=== PATIENT | female | born 1940 | race Caucasian/White ===

== ENCOUNTER 2017-04-28 07:40 | Outpatient (CLI) | payer MEDICARE ==
[~2017-04-28] VITALS: Ht 162.6 cm; Wt 90.9 kg
--- NOTE | ~2017-04-28 | HEMODYNAMI ---
PATIENT:YANET MALIK MEDICAL RECORD: [id number] : 42 LOCATION:[facility] ADMISSION DATE: 04/28/17 Generatedon:04/28/201711:15 Patient name: YANET MALIK Patient #: [id number] SSN: [id number] B: 1940 Date of study: 04/28/2017 Page: Of Hemodynamic Procedure Report Patient Data Patient Demographics Procedure consent was obtained First Name: YANET Gender: Female Last Name: HELENA : 1940 Patient #: [id number] Age: 76 year(s) Race: Additional ID: [id number] Contact details [address]: [address] [place] [address] State: [place] City: [place] Zip code: [address] Past Medical History Allergies: No known allergies Admission Admission Data Admission Date: 04/28/2017 Admission Time: 7:40 Admit Source: Other Height (in.): 64 BSA: 1.96 (m2) Height (cm.): 162.56 BMI: 34.33 (kg/m2) Weight (lbs.): 200 Weight (kg.): 90.72 Lab Results Lab Result Date: 04/28/2017 Lab Result Time: 0:00 Biochemistry Name Units Result Min Max Creatinine mg/dl 1 --(--*-)-- 0.6 1.3 CBC Name Units Result Min Max Hemoglobin g/dl 12.6 -*(----)-- 13.5 17.5 Procedure Procedure Types Cath Procedure Diagnostic Procedure C [facility] w/Coronaries PCI Procedure Coronary Stent Initial Miscellaneous Procedures Moderate Sedation up to 30 minutes Procedure Description Procedure Date Procedure Date: 04/28/2017 Procedure Start Time: 10:49 Procedure End Time: 11:14 Procedure Staff Name Function Jovany Thibodeaux MD Performing Physician Mikael Gonzalez RT Scrub Yenifer Robison RN Nurse Cristela Barrett RT Monitor Dilan Patiño RN Veterinary Virus Serum Inspector Procedure Data Cath Procedure Fluoroscopy Diagnostic fluoroscopy Total fluoroscopy Time: 4.9 time: 4.9 min min Diagnostic fluoroscopy Total fluoroscopy dose: 669 dose: 669 mGy mGy Contrast Material Contrast Material Type Amount (ml) Isovue 300 85 Entry Location Entry Primary Successful Side Size Upsize Upsize Entry Closure Morrell ccessful Closure Location (Fr) 1 (Fr) 2 (Fr) Remarks Device Remarks Radial Right 6 Fr Mechanical artery Short Compression Estimated blood loss: 10 ml Diagnostic catheters Device Type Used For End Catheter Placement Diagnostic Terumo 5Fr LV Angiography [place] 110cm catheter Diagnostic Terumo 5Fr Left Coronary [place] 110cm catheter Angiography Diagnostic Terumo 5Fr Right Coronary [place] 110cm catheter Angiography Procedure Complications No complications Procedure Medications Medication Administration Route Dosage Oxygen NC 2 l/min Lidocaine 2% added to field 20 Heparin Flush Bag added to field 2 bags (1000units/500ml NS) 0.9% NaCl I.V. 100 ml/hr Versed I.V. 1 mg Fentanyl I.V. 50 mcg Radial Cocktail I.A. 1 syringe (Verapomil 2mg/Nitro 400mcg/Heparin 1500units) Versed I.V. 0.5 mg Fentanyl I.V. 25 mcg Versed I.V. 0.5 mg Fentanyl I.V. 25 mcg Heparin Bolus I.V. 9000 units Plavix P.O. 600 mg Hemodynamics Rest BSA: 1.96 (m2) HGB: 12.6 (g/dl) O2 Consumption: Estimated: 179.01 (ml/min) O2 Co nsumption indexed: Estimated:91.33 (ml/min/m) Heart Rate: 71 (bpm) Pressure Samples Time Site Value (mmHg) Purpose Heart Use Rate(bpm) 10:52 LV 133/12,21 EDP 69 10:53 AO 111/53(74) Pullback 75 10:53 LV 111/11,15 Pullback 75 Gradients Valve Time Site 1 Site 2 Mean SEP/DFP Peak To Heart Use (mmHg) (sec/min) Peak Rate (mmHg) (bpm) Aortic 10:53 LV AO 13 15 0 75 111/11,15 111/53(74) Calculations Valve P-P Mean Valve Index Valve Source Name Gradient Area Flow (cm2) Aortic 0 13 0 13 Snapshots Pre Cath Intra NCS Post Cath Vital Signs Time Heart Resp SPO2 etCO2 [id number] NIBP (mmHg) Rhythm Pain Sedation Rate (ipm) (%) (mmHg) (mmHg) Status Level (bpm) 10:30:49 72 15 99 0 0 152/56(111) NSR 0 (11) 10(A) , No pain 10:35:19 70 16 100 0 0 158/50(108) NSR 0 (11) 10(A) , No pain 10:39:52 69 18 100 0 0 149/45(116) NSR 0 (11) 10(A) , No pain 10:44:20 69 16 98 0 0 130/54(103) NSR 0 (11) 10(A) , No pain 10:48:44 69 17 97 0 0 130/49(89) NSR 0 (11) 10(A) , No pain 10:54:22 66 17 95 0 0 105/36(56) NSR 0 (11) 9(A) , No pain 10:58:40 69 17 95 0 0 118/41(68) NSR 0 (11) 9(A) , No pain 11:03:04 71 18 96 0 0 114/41(75) NSR 0 (11) 9(A) , No pain 11:07:18 71 16 96 0 0 109/44(78) NSR 0 (11) 9(A) , No pain 11:11:36 71 16 96 0 0 124/46(83) NSR 0 (11) 10(A) , No pain Medications Time Medication Route Dose Verified Delivered Reason Note s Effectiveness by by 10:32:04 Oxygen NC 2 l/min Jovany Buffie used for Dustin Robison RN procedure 10:32:15 Lidocaine 2% added 20ml Jovany Jovany for local to vial Dustin Thibodeaux MD anesthetic field 10:32:22 Heparin Flush added 2 bags Jovany Jovany used for Bag to Dustin Thibodeaux MD procedure (1000units/500ml field NS) 10:32:32 0.9% NaCl I.V. 100 Jovany Buffie Per physician ml/hr Dustin Robison RN 10:48:20 Versed I.V. 1 mg Jovany Buffie for sedation Dustin Robison RN 10:48:26 Fentanyl I.V. 50 mcg Jovany Buffie for sedation Dustin Robison RN 10:51:44 Radial Cocktail I.A. 1 Jovany Jovany for (Verapomil syringe Dustin Thibodeaux MD vasodilation 2mg/Nitro 400mcg/Heparin 1500units) 10:51:54 Versed I.V. 0.5 mg Jovany Buffie for sedation Dustin Robison RN 10:51:59 Fentanyl I.V. 25 mcg Jovany Buffie for sedation Dustin Robison RN 10:59:29 Versed I.V. 0.5 mg Jovany Buffie for sedation Dustin Robison RN 10:59:33 Fentanyl I.V. 25 mcg Jovany Buffie for sedation Dustin Robison RN 11:01:38 Heparin Bolus I.V. 9000 Jovany Buffie for veri fied units Dustin Robison RN anticoagulation with dr thibodeaux 11:12:44 Plavix P.O. 600 mg Jovany Buffie for Dustin Robison RN antiplatelet therapy Procedure Log Time Note 9::23 Time tracking: Regular hours 9::27 Plan of Care:Hemodynamics will remain stable., Cardiac rhythm will remain stable., Comfort level will be maintained., Respiratory function will remain adequate., Patient/ family verbilizes understanding of procedure., Procedure tolerated without complication., Recovers from procedure without complications.. 9:24:01 Patient Height : 64 cm 9:24:04 Patient Weight : 200 kg 9:25:42 Admit Source: Other 10:08:54 Dilan Patiño RN sent for patient. Start room use. 10:11:21 Lab Result : Creatinine 1 mg/dl 10:11:21 Lab Result : Hemoglobin 12.6 g/dl 10:20:51 Patient received from Pre/Post Procedure Room to [facility] 1 Alert and oriented. Tansferred to table in Supine position. 10:20:52 Warm blankets applied, and marques hugger turned on for patient comfort. 10:20:52 Correct patient and procedure confirmed by team. 10:20:54 Signed procedure consent form obtained from patient. 10:20:55 ECG and BP/O2 sat monitors applied to patient. 10:29:28 Vital chart was started 10:32:04 Oxygen 2 l/min NC was administered by Yenifer Robison RN; used for procedure; 10:32:15 Lidocaine 2% 20ml vial added to field was administered by Jovany Thibodeaux MD; for local anesthetic; 10:32:22 Heparin Flush Bag (1000units/500ml NS) 2 bags added to field was administered by Jovany Thibodeaux MD; used for procedure; 10:32:32 0.9% NaCl 100 ml/hr I.V. was administered by Yenifer Robison RN; Per physician; 10:32:36 Rhythm: sinus rhythm 10:32:38 Full Disclosure recording started 10:32:42 Baseline sample Acquired. 10:32:55 H&P Date Dictated: 04/16/2017 Within 30 days and on chart., H&P Addendum completed by physician on day of procedure. (MUST COMPLETE FOR ALL OUTPATIENTS). 10:32:56 Pre-procedure instructions explained to patient. 10:32:57 Pre-op teaching completed and patient verbalized understanding. 10:32:58 Family in patients room. 10:33:06 Patient NPO since Midnight. 10:33:14 Patient allergic to No known allergies 10:33:18 Is the patient allergic to Iodine/contrast media? No. 10:33:21 Is patient on blood thinner?No 10:33:23 Patient diabetic? Yes. 10:33:26 Previous problem with sedation/anesthesia? No ? 10:33:28 Snore? Yes 10:33:29 Sleep apnea? No 10:33:30 Deviated septum? No 10:33:32 Opens mouth fully? Yes 10:33:33 Sticks out tongue? Yes 10:33:48 Airway obstruction? Yes COPD Asthma 10:34:07 Dentures? Yes IN 10:34:29 Pre procedure: right dorsailis pedis pulse 1+ Palpable, but thready & weak; easily obliterated 10:34:31 Modified Alek's test Ulnar < 7 seconds 10:34:44 Patient pain scale 0/10 ?. 10:35:20 IV patent on arrival in left hand with 0.9% NaCl at KVO. 10:35:24 Lab results completed and on chart. 10:35:30 Right Radial & Right Groin area was prepped with chlora-prep and draped in sterile fashion 10:35:31 Alarms reviewed by R. N. 10:35:31 Sharps counted by scrub and verified by R.N. 10:35:38 Use device set Radial Dx 10:35:39 Acist Syringe opened to sterile field. 10:35:39 Medline Cath Pack opened to sterile field. 10:35:40 Bag Decanter opened to sterile field. 10:35:41 St Fred 260cm J .035 wire opened to sterile field. 10:35:42 Acist Hand Control opened to sterile field. 10:35:42 Acist Manifold opened to sterile field. 10:35:43 Tegaderm 4 x 4 opened to sterile field. 10:41:01 Merit Prelude 6Fr Radial Sheath (NO COST SUPPLY) opened to sterile field. 10:43:16 Physician paged 10:47:43 Final Timeout: patient, procedure, and site verified with staff and physician. All members of the team are in agreement. 10:47:45 Right Radial site verified by team. 10:47:48 Physical assessment completed. ASA score P 2 - A patient with mild systemic disease as per Jovany Thibodeaux MD. 10:47:52 Sedation plan: IV Moderate Sedation Versed, Fentanyl 10:48:10 Procedure started. 10:48:20 Versed 1 mg I.V. was administered by Yenifer Robison RN; for sedation; 10:48:26 Fentanyl 50 mcg I.V. was administered by Yenifer Robison RN; for sedation; 10:49:43 Local anesthetic to right radial artery with Lidocaine 2% by Jovany Thibodeaux MD.INITIAL ACCESS ONLY 10:49:59 A 6 Fr Short sheath was inserted into the Right Radial artery 10:51:20 A Diagnostic Terumo 5Fr [place] 110cm catheter was advanced over the wire and used for LV Angiography. 10:51:44 Radial Cocktail (Verapomil 2mg/Nitro 400mcg/Heparin 1500units) 1 syringe I.A. was administered by Jovany Thibodeaux MD; for vasodilation; 10:51:54 Versed 0.5 mg I.V. was administered by Yenifer Robison RN; for sedation; 10:51:59 Fentanyl 25 mcg I.V. was administered by Yenifer Robison RN; for sedation; 10:52:40 LV gram done using VELASQUEZ 10:52:41 LV hemodynamics recorded. 10::44 Injector settings: Ml/sec: 5, Volume: 15, 10:52:58 EF : 55 % 10:53:55 A Diagnostic Terumo 5Fr [place] 110cm catheter was advanced over the wire and used for Left Coronary Angiography. 10:56:01 A Diagnostic Terumo 5Fr [place] 110cm catheter was advanced over the wire and used for Right Coronary Angiography. 10:57:01 Catheter removed. 10:58:03 Medtronic Launcher 6Fr AR 1.0 guide catheter opened to sterile field. 10:58:05 Flores BMW [place] 2 J-tip 300cm 0.014 guide wir opened to sterile field. 10:58:05 PT [place] Inti Selaras BasixCompak Inflation Kit opened to sterile field. 10:58:17 High Pressure Extension Tubing (Dustin) opened to sterile field. 10:59:24 6 Fr AR 1.0 guide catheter was inserted over the wire 10:59:29 Versed 0.5 mg I.V. was administered by Yenifer Robison RN; for sedation; 10:59:33 Fentanyl 25 mcg I.V. was administered by Yenifer Robison RN; for sedation; 11:01:38 Heparin Bolus 9000 units I.V. was administered by Yenifer Robison RN; for anticoagulation; verified with dr thibodeaux 11:02:01 [facility] wire advanced. 11:06:20 Inflation Number: 1 A [place] OTW 3.0 x 18 stent was prepped and advanced across the Mid RCA. The stent was deployed at 12 GELACIO for 0:19 (min:sec). 11:07:31 Stent catheter was removed intact over wire. 11:07:32 Wire removed. 11:07:32 Guide catheter removed. 11:07:43 Terumo TR Band Standard opened to sterile field. 11:07:54 Sheath removed intact; hemostasis achieved with Mechanical Compression to the Right Radial artery. 11:07:56 Procedure ended.(Physican Out) 11:08:13 Fluoroscopy time 04.90 minutes. 11:08:17 Flurop Dose total: 669 11:08:17 Fluoroscopy dose: 669 mGy 11:08:21 Contrast amount:Isovue 300 85ml. 11:08:25 Sharps counted by scrub and verified by R.N. 11:08:34 TR band inflated with 12cc of air. 11:08:41 Insertion/operative site no bleeding no hematoma. 11:08:48 Post right radial artery:stable, clean and dry 11:08:50 Post Procedure Pulses reassessed and unchanged 11:08:54 Post-procedure physical assessment completed. ASA score P 2 - A patient with mild systemic disease as per Jovany Thibodeaux MD. 11:08:56 Post procedure rhythm: unchanged. 11:09:00 Estimated blood loss: 10 ml 11:09:01 Post procedure instruction explained to patient.Patient verbalizes understanding. 11:09:02 Patient needs reinforcement of post procedure teaching. 11:09:15 Procedure type changed to Cath procedure, Diagnostic procedure, LHC, LHC w/Coronaries, PCI procedure, Coronary Stent Initial, Miscellaneous Procedures, Moderate Sedation up to 30 minutes 11:09:21 Procedure Complication : No complications 11:09:23 See physician's report for complete and final results. 11:12:44 Plavix 600 mg P.O. was administered by Yenifer Robison RN; for antiplatelet therapy; 11:14:36 Procedure and supply charges have been captured, reviewed, submitted and are correct. 11:14:37 Vital chart was stopped 11:14:39 Report given to Pre/Post Procedure Room. 11:14:43 Patient transfered to Pre/Post Procedure Room with Stretcher. 11:14:50 Procedure ended. 11:14:50 Full Disclosure recording stopped 11:14:53 End room use (Document Last) Intervention Summary Intervention Notes Time ActionType Lesion and Equipment Action# Pressure Duration Attributes Used 11:06:20 Place stent Mid RCA [place] OTW 1 12 00:20 3.0 x 18 stent Device Usage Item Name Manufacture Quantity Catalog Hospital Part Current Minim al Lot# / Number Charge Number Stock Stock Serial# Code Acist Acist 1 23118 801908 286902 730857 20 Syringe Medical Systems Inc Medline Cardinal 1 [id number] 713574 77072 306799 5 Cath Pack Health Bag Microtek 1 2002S 743941 25711 227130 [address] Fred 1 [id number] 210579 906705 176872 30 260cm J .035 wire Acist Hand Acist 1 52852 859441 028930 693465 5 Control Medical Systems Inc Acist Acist 1 49242 644382 590785 637368 5 Manifold Medical Systems Inc Tegaderm 4 3M 1 1626W 047031 459945 741305 5 x 4 Merit Merit 1 [id number] 742761 500177 5 Prelude 6Fr Medical Radial Sheath (NO COST SUPPLY) Diagnostic Terumo 1 40-6937 528340 777475 799453 5 Terumo 5Fr [place] 110cm catheter Medtronic Medtronic 1 [id number] 586999 80477 869709 1 Launcher 6Fr AR 1.0 guide catheter Flores BMW Flores 1 [id number] 030569 160327 309903 5 [place] 2 Vascular J-tip 300cm 0.014 guide wir Merit Merit 1 [id number] 855099 001150 524569 15 BasixCompak Medical Inflation Kit High Merit 1 [id number] 238609 69700 264591 10 Pressure Medical Extension Tubing (Thibodeaux) [place] OTW Medtronic 1 [id number] 373694 5230666 599755 5 [id number] 3.0 x 18 stent Terumo TR Terumo 1 [id number] 089618 349085 422057 40 Band Standard Signature Audit [place] Stage Time Signature Unsigned Intra-Procedure 04/28/2017 Cristela 11:15:03 AM Counts RT(R) Signatures Monitor : Cristela Signature : Counts RT Date : Time : [place] [id number] [facility] [address]
[~2017-04-28 07:40] MED LIST: ADVAIR 250/501 DISK INH; ALDACTONE25 MG PO; ALEVE220 MG PO; ASPIRIN325 MG PO; ATROVENT 0.02%2.5 ML; CALTRATE-600600 MG; CORTEF10 MG PO; FISH OIL 1,0001 CA1; FLOVENT DI50 MCG/DIS; FLUTICASONE PRO16 GM NASAL; HYDROCODON-ACE1 EAC7 PO; KLONOPIN1 MG PO; LASIX20 MG PO; LIPITOR20 MG PO; MUCINEX600 MG PO; MULTIPLE VITAMI1 TA1 PO; NEXIUM40 MG PO; NORVASC5 MG PO; OMEPRAZOLE40 MG PO; PLAVIX75 MG PO; PRILOSEC10 M1 PO; REGLAN10 MG PO; TOPROL XL50 MG PO; ZOFRAN8 MG PO; ZOLOFT100 MG PO
[2017-04-28] MEDS ORDERED: MIRAPEX0.25 MG PO (08:03)
[2017-04-28] MEDS ORDERED: FUROSEMIDE20 MG PO (08:05)
[2017-04-28 08:14] VITALS: BP 185/64; Ht 162.6 cm; Wt 90.9 kg
[2017-04-28 08:32] LABS: ANION GAP 11.8 mmol/L (8-16); BASOPHILS 0.4 % (0-2); CARBON DIOXIDE 32.5 mmol/L (21.0-32.0); EOSINOPHILS 0.9 % (0-7); HEMOGLOBIN 12.6 g/dL (12-16); IMMATURE GRANULOCYTES 0.6 % (0-5); LYMPHOCYTES 8.1 % (15-50); MCHC 34.1 g/dL (31.0-37.0); MCV 88.1 fL (80.0-100.0); MEAN PLATELET VOLUME 10.2 fL (7.4-10.4); MONOCYTES 6.9 % (2-11); NEUTROPHILS 83.1 % (40-80); PLATELET COUNT 278 10x3/uL (130-400); POTASSIUM - SERUM 4.3 mmol/L (3.5-5.1); RDW 17.2 % (11.5-14.5); WBC 13.9 10x3/uL (4.8-10.8)
--- NOTE | 2017-04-28 11:20 | NUR ---
1120 RECIEVED TO ROOM VIA STRETCHER FROM [employer]ODUCT SAF[employer]Y EXPERT WITH REPORTS OF ONE STENT TO THE RCA. TR BAND TO R/WRIST CDI NO BLEEDING NO HEMATOMA NOTED. VSS WITH CHEST PAIN DENIED.
[2017-04-28] MEDS ORDERED: PLAVIX75 MG PO (11:31)
--- NOTE | 2017-04-28 11:48 | NUR ---
VSS WITH CHEST PAIN DENIED TR BAND TO R/WRIST CDI NO BLEEDING NO HEMATOMA NOTED INSTRUCTED PATIENT TO KEEP RUE STRAIGHT. FAMILY AT SIDE
--- NOTE | 2017-04-28 12:00 | NUR ---
RESTING QUIETLY WITH EYES CLOSED. VSS NO DISTRESS NOTED TR BAND R/WRIST CDI NO BLEEDING NO HEMATOMA NOTED SANDWICH AND SODA TO BEDSIDE. FAMILY PRESENT IN ROOM
--- NOTE | 2017-04-28 12:31 | NUR ---
1230 TR BAND TO RIGHT HAND CDI, AREA FREE FROM BLEEDING/HEMATOMA. CAP REFILL TO FINGERS IS BRISK, FINGERS WARM TO TOUCH. VSS. ON O2 AT 2 LPM VIA NC, RR EVEN AND UNLABORED. FAMILY AT BEDSIDE. CALL LIGHT IN REACH.
--- NOTE | 2017-04-28 13:00 | NUR ---
1300 RESTING QUIETLY WITH NO DISTRESS.VSS TR BAND R/WRIST CDI NO BLEEDING NO HEMATOMA NOTED. FAMILY AT SIDE
--- NOTE | 2017-04-28 13:30 | NUR ---
1330 NO CHANGE IN ASSESSMENT TR BAND REMAINS CDI WITH VSS
--- NOTE | 2017-04-28 14:01 | NUR ---
TALKING TO FAMILY AT SIDE WITH CHEST PAIN DENIED VSS TR BAND CDI NO BLEEDING NO HEMATOMA NOTED
--- NOTE | 2017-04-28 14:35 | NUR ---
2 CC AIR REMOVED FROM TR BAND WITH NO BLEEDING NO HEMATOMA NOTED VSS
--- NOTE | 2017-04-28 15:03 | NUR ---
VOIDS 300 CC CLEAR YELLOW URINE TO COLLECTION. TR BAND REMAINS CDI NO BLEEDING NO HEMATOMA NOTED
--- NOTE | 2017-04-28 15:19 | NUR ---
2 CC AIR REMOVED FROM TR BAND WITH NO BLEEDING NO HEMATOMA NOTED
--- NOTE | 2017-04-28 15:30 | NUR ---
1530 2 CC AIR REMOVED FROM TR BAND WITH NO BLEEDING NO HEMATOMA NOTED. PIV REMOVED WITH DRESSING APPLIED PATIENT UP TO GET DRESSED FOR DISCHARGE HOME
--- NOTE | 2017-04-28 15:53 | NUR ---
TR BAND REMOVED WITH DRESSING APPLIED NO BLEEDING NO HEMATOMA NOTED. VERBAL AND WRITTEN DISCHARGE GONE OVER WITH PATIENT AND FAMILY. LEFT VIA WC TO PARKING FOR TRANSPORT HOME WITH CHEST PAIN DENIED NO DISTRESS.
== END 2017-04-28 15:55 | disposition home or self-care (01) ==
LOC: D.CATH 07:40
PROVIDERS: Internal Medicine Cardiovascular Disease
DX: I25.119 Atherosclerotic heart disease of native coronary artery with unspecified angina pectoris (principal); Z01.812 Encounter for preprocedural laboratory examination

== ENCOUNTER 2017-05-14 07:12 | Outpatient (CLI) | payer MEDICARE ==
[~2017-05-14] VITALS: Ht 162.6 cm; Wt 90.9 kg
--- NOTE | ~2017-05-14 | HEMODYNAMI ---
PATIENT:YANET MALIK MEDICAL RECORD: [id number] : 42 LOCATION:[facility] ADMISSION DATE: 05/14/17 Generatedon:05/14/201710:05 Patient name: YANET MALIK Patient #: [id number] SSN: DO B: 1940 Date of study: 05/14/2017 Page: Of Hemodynamic Procedure Report Patient Data Patient Demographics Procedure consent was obtained First Name: YANET Gender: Female Last Name: HELENA : 1940 Patient #: [id number] Age: 76 year(s) Race: Additional ID: [id number] Contact details Address: [address] [place] [address] State: [place] City: [place] Zip code: [address] Past Medical History Allergies: No known allergies Admission Admission Data Admission Date: 05/14/2017 Admission Time: 7:12 Lab Results Lab Result Date: 05/14/2017 Lab Result Time: 7:39 Biochemistry Name Units Result Min Max BUN mg/dl 15 --(--*-)-- 7 18 Creatinine mg/dl 1.2 --(---*)-- 0.6 1.3 CBC Name Units Result Min Max Hematocrit % 36.4 *-(----)-- 42 54 Hemoglobin g/dl 12.4 *-(----)-- 13.5 17.5 Procedure Procedure Types Cath Procedure PCI Procedure Coronary Stent Initial Miscellaneous Procedures Moderate Sedation up to 30 minutes Procedure Description Procedure Date Procedure Date: 05/14/2017 Procedure Start Time: 9:40 Procedure End Time: 9:59 Procedure Staff Name Function Jovany Chan MD Performing Physician Cristela Barrett RT Scrub Dilan Patiño RN Nurse Nikolai Alvarez RN Nurse Mikael Gonzalez RT Monitor Procedure Data Cath Procedure Fluoroscopy Diagnostic fluoroscopy Total fluoroscopy Time: 3.2 time: 3.2 min min Diagnostic fluoroscopy Total fluoroscopy dose: 433 dose: 433 mGy mGy Contrast Material Contrast Material Type Amount (ml) Isovue 300 55 Entry Location Entry Primary Successful Side Size Upsize Upsize Entry Closure Succes sful Closure Location (Fr) 1 (Fr) 2 (Fr) Remarks Device Remarks Femoral Right 6 Fr Exoseal artery Short Estimated blood loss: 10 ml Procedure Complications No complications Procedure Medications Medication Administration Route Dosage Oxygen NC 2 l/min 0.9% NaCl I.V. 100 ml/hr Heparin Flush Bag added to field 2 bags (1000units/500ml NS) Versed I.V. 0.5 mg Fentanyl I.V. 25 mcg Fentanyl I.V. 25 mcg Versed I.V. 0.5 mg Heparin Bolus I.V. 9000 units Nitroglycerin IC/IA I.C. 100 mcg Hemodynamics Rest HGB: 12.4 (g/dl) Heart Rate: 62 (bpm) Snapshots Pre Cath Intra NCS Post Cath Vital Signs Time Heart Resp SPO2 etCO2 CC1yluu NIBP (mmHg) Rhythm Pain Sedation Rate (ipm) (%) (mmHg) (mmHg) Status Level (bpm) 9:29:12 74 17 97 0 0 208/98(163) NSR 0 (11) 10(A) , No pain 9:33:53 72 16 100 0 0 206/94(146) NSR 0 (11) 10(A) , No pain 9:38:23 72 15 100 0 0 193/94(154) NSR 0 (11) 10(A) , No pain 9:43:02 72 18 99 0 0 197/91(146) NSR 0 (11) 10(A) , No pain 9:47:32 70 11 96 0 0 182/81(134) NSR 0 (11) 9(A) , No pain 9:52:05 70 11 95 0 0 162/71(120) NSR 0 (11) 9(A) , No pain 9:57:40 70 11 95 0 0 163/71(128) NSR 0 (11) 10(A) , No pain 10:03:41 73 12 96 0 0 161/85(127) NSR 0 (11) 10(A) , No pain Medications Time Medication Route Dose Verified Delivered Reason Notes Eff ectiveness by by 9:23:49 Oxygen NC 2 Nikolai Nikolai Per l/min Kim Alvarez physician RN RN 9:24:59 0.9% NaCl I.V. 100 Nikolai Nikolai Per ml/hr Kim Alvarez physician RN RN 9:27:04 Heparin Flush added 2 Nikolai Nikolai used for Bag to bags Kim Alvarez procedure (1000units/500ml field RN RN NS) 9:41:01 Versed I.V. 0.5 Nikolai Nikolai for sedation mg Kim Alvarez RN RN 9:41:15 Fentanyl I.V. 25 Nikolai Nikolai for sedation mcg Kim Alvarez RN RN 9:44:33 Fentanyl I.V. 25 Nikolai Nikolai for sedation mcg Kim Alvarez RN RN 9:44:48 Versed I.V. 0.5 Nikolai Nikolai for sedation mg Kim Alvarez RN RN 9:48:06 Heparin Bolus I.V. 9000 Nikolai Nikolai Per units Kim Alvarez physician RN RN 9:53:13 Nitroglycerin I.C. 100 Nikolai Jovany for IC/IA mcg Kim ly video tape duplicator Log Time Note 9:07:18 Diagnostic Cath status Elective 9:07:21 Cristela Counts RT(R) sent for patient. Start room use. 9:07:22 Time tracking: Regular hours 9:07:25 Plan of Care:Hemodynamics will remain stable., Cardiac rhythm will remain stable., Comfort level will be maintained., Respiratory function will remain adequate., Patient/ family verbilizes understanding of procedure., Procedure tolerated without complication., Recovers from procedure without complications.. 9:17:16 Lab Result : Creatinine 1.2 mg/dl 9:17:16 Lab Result : BUN 15 mg/dl 9:17:16 Lab Result : Hematocrit 36.4 % 9:17:16 Lab Result : Hemoglobin 12.4 g/dl 9:17:23 Patient received from Pre/Post Procedure Room to CCL 1 Alert and oriented. Tansferred to table in Supine position. 9:17:24 Warm blankets applied, and marques hugger turned on for patient comfort. 9:17:26 Signed procedure consent form obtained from patient. 9:17:27 ECG and BP/O2 sat monitors applied to patient. 9:17:41 H&P Date Dictated: 04/16/2017 Within 30 days and on chart., H&P Addendum completed by physician on day of procedure. (MUST COMPLETE FOR ALL OUTPATIENTS). 9:17:42 Pre-procedure instructions explained to patient. 9:17:42 Pre-op teaching completed and patient verbalized understanding. 9:17:44 Family in waiting room. 9:17:45 Patient NPO since Midnight. 9:17:54 Patient allergic to No known allergies 9:17:56 Is the patient allergic to Iodine/contrast media? No. 9:23:49 Oxygen 2 l/min NC was administered by Nikolai Alvarez RN; Per physician; 9:24:59 0.9% NaCl 100 ml/hr I.V. was administered by Nikolai Alvarez RN; Per physician; 9:26:43 Vital chart was started 9:27:04 Heparin Flush Bag (1000units/500ml NS) 2 bags added to field was administered by Nikolai Alvarez RN; used for procedure; 9:36:26 Baseline sample Acquired. 9:36:32 Rhythm: sinus rhythm 9:36:35 Is patient on blood thinner?Yes 9:36:38 ACC The patient was administered the following blood thiners within the last 24 hours: ACCPlavix 9:36:39 Patient diabetic? No. 9:36:42 Previous problem with sedation/anesthesia? No ? 9:36:43 Snore? Yes 9:36:44 Sleep apnea? No 9:36:45 Deviated septum? No 9:36:45 Opens mouth fully? Yes 9:36:46 Sticks out tongue? Yes 9:36:54 Airway obstruction? Yes COPD/ASTHMA 9:36:57 Dentures? Yes OUT 9:37:00 Pre procedure: right dorsailis pedis pulse 1+ Palpable, but thready & weak; easily obliterated 9:37:04 Patient pain scale 0/10 ?. 9:37:09 IV patent on arrival in left forearm with 0.9% NaCl at O. 9:37:12 Lab results completed and on chart. 9:37:16 Right groin area was prepped with chlora-prep and draped in sterile fashion 9:37:17 Alarms reviewed by R. N. 9:37:18 Sharps counted by scrub and verified by R.N. 9:37:24 Use device set Femoral PCI 9:37:25 Tegaderm 4 x 4 opened to sterile field. 9:37:26 Acist Manifold opened to sterile field. 9:37:27 Acist Syringe opened to sterile field. 9:37:28 Acist Hand Control opened to sterile field. 9:37:28 Bag Decanter opened to sterile field. 9:37:29 Medline Cath Pack opened to sterile field. 9:37:29 Terumo 6Fr [place] Sheath opened to sterile field. 9:37:30 St Fred 260cm J .035 wire opened to sterile field. 9:37:30 [place] BasixCompak Inflation Kit opened to sterile field. 9:37:38 Flores BMW [place] 2 J-tip 300cm 0.014 guide wir opened to sterile field. 9:37:43 Physician arrived 9:37:44 --------ALL STOP TIME OUT------ 9:37:44 Final Timeout: patient, procedure, and site verified with staff and physician. All members of the team are in agreement. 9:37:46 Right groin site verified by team. 9:37:48 Physical assessment completed. ASA score P 2 - A patient with mild systemic disease as per Jovany Chan MD. 9:37:52 Sedation plan: IV Moderate Sedation Versed, Fentanyl 9:40:12 Cordis 6FR XBLAD 3.5 guide catheter opened to sterile field. 9:40:16 Procedure started. 9:40:17 Full Disclosure recording started 9:40:19 Local anesthetic to right femoral artery with Lidocaine 2% by Jovany Chan MD.INITIAL ACCESS ONLY 9:40:25 Zero performed for pressure channel P1 9:41:01 Versed 0.5 mg I.V. was administered by Nikolai Alvarez RN; for sedation; 9:41:15 Fentanyl 25 mcg I.V. was administered by Nikolai Alvarez RN; for sedation; 9:42:22 High Pressure Extension Tubing (Dustin) opened to sterile field. 9:44:33 Fentanyl 25 mcg I.V. was administered by Nikolai Alvarez RN; for sedation; 9:44:48 Versed 0.5 mg I.V. was administered by Nikolai Alvarez RN; for sedation; 9:45:08 A 6 Fr Short sheath was inserted into the Right Femoral artery 9:46:37 6 Fr XBLAD 3.5 guide catheter was inserted over the wire 9:48:06 Heparin Bolus 9000 units I.V. was administered by Nikolai Alvarez RN; Per physician; 9:48:16 BMW wire advanced. 9:49:00 Wire advanced across lesion. 9:51:01 Inflation number: 1 A Mozec Rx 2.0 x 15 balloon was prepped and advanced across the Mid CX, then inflated to 12 GELACIO for 0:10 (min:sec). 9:51:22 Inflation number: 2 The Mozec Rx 2.0 x 15 balloon was reinflated across the Mid CX, to 12 GELACIO for 0:10 (min:sec). 9:51:46 Balloon removed over the wire. 9:53:13 Nitroglycerin IC/IA 100 mcg I.C. was administered by Jovany Chan MD; for vasodilation; 9:56:47 Inflation Number: 3 A Burnet OTW 2.5 x 18 stent was prepped and advanced across the Mid CX. The stent was deployed at 14 GELACIO for 0:10 (min:sec). 9:57:12 Stent catheter was removed intact over wire. 9:57:13 Wire removed. 9:57:13 Guide catheter removed. 9:57:25 Cordis 6Fr Exoseal opened to sterile field. 9:57:33 Sheath removed intact; hemostasis achieved with Exoseal to the Right Femoral artery. 9:57:34 Procedure ended.(Physican Out) 9:57:59 Fluoroscopy time 03.20 minutes. 9:58:02 Flurop Dose total: 433 9:58:02 Fluoroscopy dose: 433 mGy 9:58:05 Contrast amount:Isovue 300 55ml. 9:58:06 Sharps counted by scrub and verified by R.N. 9:58:07 Insertion/operative site no bleeding no hematoma. 9:58:09 Post-op/insertion site Right Femoral artery dressed using a 4 x 4 and Tegaderm. 9:58:13 Post right femoral artery:stable, soft, clean and dry 9:58:15 Post Procedure Pulses reassessed and unchanged 9:58:18 Post-procedure physical assessment completed. ASA score P 2 - A patient with mild systemic disease as per Jovany Chan MD. 9:58:20 Post procedure rhythm: unchanged. 9:58:24 Estimated blood loss: 10 ml 9:58:25 Post procedure instruction explained to patient.Patient verbalizes understanding. 9:58:25 Patient needs reinforcement of post procedure teaching. 9:58:33 Procedure type changed to Cath procedure, PCI procedure, Coronary Stent Initial, Miscellaneous Procedures, Moderate Sedation up to 30 minutes 9:59:00 PT has small skin tear from holding pressure. Cleaned and then dressed with a 4X4 and tegaderm 9:59:48 Procedure and supply charges have been captured, reviewed, submitted and are correct. 9:59:51 Procedure Complication : No complications 9:59:53 Vital chart was stopped 9:59:53 See physician's report for complete and final results. 9:59:55 Report given to Pre/Post Procedure Room. 9:59:57 Patient transfered to Pre/Post Procedure Room with Stretcher. 9:59:59 Procedure ended. 9:59:59 Full Disclosure recording stopped 10:00:05 ACC-PCI Only Patient was given prescriptions, or instructed by Jovany Chan MD to start/continue the following medications upon discharge: Plavix 10:00:21 End room use (Document Last) Intervention Summary Intervention Notes Time ActionType Lesion and Equipment Action# Pressure Duration Attributes Used 9:51:01 Inflate Mid CX Mozec Rx 1 12 00:10 balloon 2.0 x 15 balloon 9:51:22 Reinflate Mid CX Mozec Rx 2 12 00:10 balloon 2.0 x 15 balloon 9:56:47 [address] stent Mid CX Burnet OTW 3 14 00:10 2.5 x 18 stent Device Usage Item Name Manufacture Quantity Catalog Hospital Part Current Minimal Lot# / Number Charge Number Stock Stock Serial# Code Tegaderm 4 3M 1 [id number] [id number] 338176 5 x 4 Acist Acist 1 99438 532540 917559 128280 5 Manifold Medical Systems Inc Acist Acist 1 32653 453559 244140 341565 20 Syringe Medical Systems Inc Acist Hand Acist 1 36904 378128 116107 646214 5 Control Medical Systems Inc Bag Microtek 1 2002S 801508 11408 767383 5 DecSynergy Biomedical Inc. Medline Cardinal 1 [id number] 193810 29154 912426 5 Cute Attack Terumo 6Fr Terumo 1 SVE827 759451 546435 315831 [address] Fred 1 618132 033526 823179 450455 30 260cm J .035 wire Merit Merit 1 [id number] 657322 508922 554433 15 BasixCompak Medical Inflation Kit Flores BMW Flores 1 [id number] 813217 081304 962284 5 [place] 2 Vascular J-tip 300cm 0.014 guide wir Cordis 6FR Cardinal 1 [id number] 307118 625782 301688 10 XBLAD 3.5 Health guide catheter High Merit 1 [id number] 723463 34834 550584 10 Pressure Medical Extension Tubing (Chan) Mozec Rx Cardinal 1 [id number] 090274 70385 026029 5 UMOA67 2.0 x 15 Health balloon Porfirio OTW Medtronic 1 [id number] 291865 91630 031444 5 [id number] 2.5 x 18 stent Cordis 6Fr Cardinal 1 EX600 537558 909691 028529 10 [facility] [employer] International Signature Audit [place] Stage Time Signature Unsigned Intra-Procedure 05/14/2017 Mikael Gonzalez 10:04:59 AM RT(R) Signatures Monitor : Mikael Gonzalez RT Signature : Date : Time : [place] [id number] [place] [address]
[~2017-05-14 07:12] MED LIST changes: +FUROSEMIDE20 MG PO; +MIRAPEX0.25 MG PO
[2017-05-14 07:37] VITALS: BP 115/88; Ht 162.6 cm; Wt 90.9 kg
[2017-05-14 07:43] LABS: BASOPHILS 0.5 % (0-2); EOSINOPHILS 0.7 % (0-7); HEMATOCRIT 36.4 % (36.0-48.0); HEMOGLOBIN 12.4 g/dL (12-16); IMMATURE GRANULOCYTES 0.8 % (0-5); LYMPHOCYTES 8.5 % (15-50); MCH 29.9 pg (26.0-34.0); MCHC 34.1 g/dL (31.0-37.0); MCV 87.7 fL (80.0-100.0); MEAN PLATELET VOLUME 10.4 fL (7.4-10.4); MONOCYTES 6.9 % (2-11); NEUTROPHILS 82.6 % (40-80); PLATELET COUNT 289 10x3/uL (130-400); RBC 4.15 10x6/uL (4.00-5.40); RDW 17.4 % (11.5-14.5); WBC 12.5 10x3/uL (4.8-10.8)
[2017-05-14 08:03] LABS: ANION GAP 9.7 mmol/L (8-16); CALCIUM 8.6 mg/dL (8.5-10.1); CARBON DIOXIDE 31.4 mmol/L (21.0-32.0); CREATININE - SERUM 1.2 mg/dL (0.6-1.3); POTASSIUM - SERUM 4.1 mmol/L (3.5-5.1)
--- NOTE | 2017-05-14 10:37 | NUR ---
1015 RECEIVED PT FROM SOLUTION LEAD. PT IS DROWSY, DENIES ANY C/O CHEST PAIN OR NAUSEA. DRESSING TO RIGHT GROIN IS CDI, AREA SOFT AND NONTENDER. PEDAL PULSES PALPABLE. PT INSTRUCTED TO KEEP RIGHT LEG STRAIGHT AND HEAD TO PILLOW AND VERBALIZES UNDERSTANDING. VSS. RR IS EVEN AND UNLABORED. 1030 ASSISTED PT ON AND OFF BEDPAN, PT VOIDED APPROX 300 CC CLEAR YELLOW URINE. RIGHT GROIN REMIANS STABLE. PT DENIES ANY C/O.
--- NOTE | 2017-05-14 11:00 | NUR ---
1100 NO INCREASE IN HEMATOMA NOTED. PEDAL PULSE BY DOPPLER, FOOT WARM. DENIES ANY C/O CHEST PAIN. NSR ON MONITOR.
--- NOTE | 2017-05-14 11:05 | NUR ---
1045 HEMATOMA NOTED TO RIGHT GROIN AREA, PRESSURE HELD AT SITE FOR 5 MINUTES AND FEMSTOP APPLIED. PEDAL PULSE BY DOPPLER. FOOT WARM, CAP REFILL IS BRISK. PT DENIES ANY C/O CHEST DISCOMFORT.
--- NOTE | 2017-05-14 11:30 | NUR ---
1130 PT C/O EPIGASTRIC DISCOMFORT, PAGED DR LEUNG AND ORDER RECEIVED FOR GI COCKTAIL. FEMSTIOP IN PLACE WITH NO INCREASE IN HEMATOMA NOTED. NO BLEEDING NOTED. FOOT IS WARM.
--- NOTE | 2017-05-14 12:35 | NUR ---
1200 STARTED FEMSTOP DEFLATION, NO BLEEDING OR INCREASED HEMATOMA NOTED. 1220 PT STATES NO PAIN RELIEF FROM GI COCKTAIL, C/O PAIN TO RIGHT UPPER QUADRANT AT THIS TIME. DENIES ANY LOWER ABDOMINAL PAIN OR CHEST PAIN. EKG OBTAINED AND SHOWS NORMAL SINUS RHYTHM, PT REQUESTS PAIN MEDICATION FOR ABDOMINAL PAIN. 1225 DR LEUNG RETURNED PAGE, REPORTED ABOVE PAIN COMPLAINT AND BP OF 210/85, HR 66, NORMAL SINUS RHYTHM ON EKG. ORDERS FOR MORPHINE IV FOR PAIN AND CLONIDINE PO FOR BP OBTAINED.
--- NOTE | 2017-05-14 13:39 | NUR ---
1300 PT STATES PAIN TO RIGHT UPPER QUADRANT REDUCED TO A 2-3/10. 4X4 AND TEGADERM APPLIED TO RIGHT GROIN, NO BLEEDING OR HEMATOMA INCREASE SINCE FEMSTOP REMOVED. PEDAL PULSES PALPABLE. CAP REFILL TO FOOT IS BRISK. FAMILY AT BEDSIDE. BP 161/66.
--- NOTE | 2017-05-14 13:46 | NUR ---
1315 PT SLEEPING, RR EVEN AND UNLABORED. DRESSING TO RIGHT GROIN IS CDI, AREA IS SOFT, NO NEW HEMATOMA NOTED. PEDAL PULSES PALPABLE. CAP REFILL IS BRISK. FAMILY AT BEDSIDE. WILL CONTINUE TO MONITOR.
--- NOTE | 2017-05-14 13:47 | NUR ---
1345 PT SLEEPING, RIGHT GROIN IS SOFT, DRESSING IS CDI. FAMILY AT BEDSIDE, CALL LIGHT IN REACH. RESP WITH EASE.
--- NOTE | 2017-05-14 14:35 | NUR ---
1415 HOB ELEVATED 45 DEGREES. PT AWAKE, DENIES ANY C/O AT THIS TIME, HAS CAMMIE PO FLUIDS WITH NO NAUSEA. DRESSING TO RIGHT GROIN IS CDI, NO BLEEDING OR HEMATOMA NOTED. PEDAL PULSES PALPABLE, SANDWICH SERVED. CAREGIVER AT BEDSIDE.
--- NOTE | 2017-05-14 15:57 | NUR ---
1445 IV DC'D WITH CATH INTACT. ASSISTED PT WITH DRESSING FOR DC TO HOME. DRESSING TO RIGHT GROIN IS CDI, AREA IS SOFT AND NONTENDER. AWAITING PT'S DAUGHTER TO RETURN FOR DC TO HOME. PT DENIES ANY C/O AT THIS TIME. 1520 PT'S DAUGHTER HAS ARRIVED. REVIEWED DC INSTRUCTIONS AND PT VERBALIZES UNDERSTANDING. PT ESCOTED TO PRIVATE AUTO VIA WC BY NURSE WTIH DAUGHTER DRIVING HER HOME.
== END 2017-05-14 15:20 | disposition home or self-care (01) ==
LOC: D.CATH 07:12
PROVIDERS: Internal Medicine Cardiovascular Disease
DX: I25.110 Atherosclerotic heart disease of native coronary artery with unstable angina pectoris (principal); Z01.812 Encounter for preprocedural laboratory examination; Z95.5 Presence of coronary angioplasty implant and graft

== ENCOUNTER → 2017-06-24 16:02 | Outpatient (CLI) | payer MEDICARE ==
[2017-05-14 07:37] VITALS: BMI 34.4
[2017-06-24 17:27] LABS: ANION GAP 9.9 mmol/L (8-16); CARBON DIOXIDE 35.3 mmol/L (21.0-32.0); CREATININE - SERUM 1.2 mg/dL (0.6-1.3); POTASSIUM - SERUM 4.2 mmol/L (3.5-5.1)
== END | disposition home or self-care (01) ==
LOC: D.RAD 16:02
PROVIDERS: Internal Medicine Interventional Cardiology
DX: R06.00 Dyspnea, unspecified (principal)

== ENCOUNTER 2017-11-17 14:30 | Inpatient (IN) | payer MEDICARE ==
--- NOTE | ~2017-11-17 | CN ---
PATIENT NAME:YANET MALIK MEDICAL RECORD: [id number] : 42 LOCATION:[facility] ADMIT DATE: 11/17/17 ACCOUNT: [id number] CONSULTING PHYSICIAN: JOSE RAUL CAM MD REFERRING PHYSICIAN: MONIKA RAMIRES MD DATE OF CONSULTATION: 11/18/2017 CONSULT REQUESTING PHYSICIAN: Monika Ramires MD REASON FOR CONSULTATION: Bilateral pneumonia, acute exacerbation of chronic obstructive pulmonary disease. HISTORY OF PRESENT ILLNESS: Ms. Malik is a 77-year-old female who is sick for the last few days. According to the patient, she is coughing. She is wheezing. She has shortness of breath with mild exertion. Also, she was getting very weak. She has noticed some dark tarry stool. On evaluation in the ER, found out the patient has bilateral pneumonia as well as significant leukocytosis. REVIEW OF SYSTEMS: Mainly in the history of present illness. PAST MEDICAL HISTORY: 1. Hypertension. 2. COPD. 3. Asthma. 4. Coronary artery disease. 5. Chronic cough. 6. History of ovarian cancer. 7. Pituitary adenoma removed in 2014. 8. Anxiety, depression. 9. Parkinson disease. PAST SURGICAL HISTORY: 1. Cholecystectomy. 2. Hysterectomy. 3. Cervical spine fusion surgery. 4. Bladder surgery. 5. Cardiac catheterization and stent placement. 6. Ovarian tumor removed in 1998. ALLERGIES: There are no known drug allergies. MEDICATIONS: On Life Recovery Systemstech is reviewed. PERSONAL AND SOCIAL HISTORY: The patient is still an everyday smoker. She is a nondrinker. FAMILY HISTORY: Significant for parent has a cancer. PHYSICAL EXAMINATION: GENERAL: Now, the patient is now lying comfortably, but she is coughing constantly. VITAL SIGNS: The blood pressure is 147/41, pulse is 72, respiration is 23, temperature is 98.6, SpO2 is 90% on 2 liter nasal cannula. HEENT: Conjunctivae pink, sclerae nonicteric. CONSULT REPORT [id number] YANET MALIK NECK: Supple. No JVD. CHEST: There is prolonged expiration with wheezing. There are bilateral crackles. HEART: Rhythm regular, normal sound, no murmur. ABDOMEN: Soft, bowel sounds present. No hepatosplenomegaly. RECTAL: Deferred. EXTREMITIES: No cyanosis, no clubbing, no pedal edema. SKIN: Warm, normal turgor. CENTRAL NERVOUS SYSTEM: The patient is awake and alert. There are no obvious cranial nerve abnormality. There is increased muscular tone. LABORATORY DATA: CBC: The WBC is 22.3, hemoglobin 5.9, hematocrit 21.9, the platelet count 326. Chemistry: Sodium 145, potassium 3.1, BUN is 25, creatinine 1.7. ABG: The pH is 7.45, pCO2 of 48.9 and the pO2 is 72, bicarb is 34.6. IMAGING: CT scan of the chest: There is scattered faint alveolar density throughout both lungs, more prominent in the left upper lobe. There is mild cardiomegaly. IMPRESSION: 1. Acute hypoxic respiratory failure. 2. Acute exacerbation of chronic obstructive pulmonary disease. 3. Bilateral pneumonia, most likely community-acquired pneumonia, rule out aspiration. 4. Leukocytosis. 5. Parkinson disease. 6. Tobacco dependence syndrome. 7. Anemia, most likely iron deficiency anemia secondary to gastrointestinal bleed. 8. Gastroesophageal peptic ulcer disease. RECOMMENDATION: 1. Continue supplemental oxygen. 2. Albuterol ipratropium nebulizer. 3. Start Brovana, budesonide nebulizer. Start on Singulair 10 mg daily. 4. Start on methylprednisolone IV. 5. Follow up labs and chest radiograph. 6. Speech therapy evaluation to rule out any chronic aspiration. GI onboard. 7. Dr. Ramires, thank you for involving me in the care of Ms. Malik. TRANSINT:[id number] Voice Confirmation ID: [id number] DOCUMENT ID: [id number] JOSE RAUL CAM MD at 1340 CC: ZACKERY KNAPP [phone] DICTATION DATE: 11/18/171805 TUBING MACHINE OPERATOR: 11/18/171921 DIS IN 11/27/17 [facility] [address] [place] [address]
[~2017-11-17 14:30] MED LIST changes: -FISH OIL 1,0001 CA1; +FISH OIL 1,0001 CA1 PO
[2017-11-17 15:02] LABS: RBC 3.46 10x6/uL (4.00-5.40); WBC 22.3 10x3/uL (4.8-10.8)
[2017-11-17 15:10] LABS: HEMATOCRIT 21.9 % (36.0-48.0); HEMOGLOBIN 5.9 g/dL (12-16); MCH 17.1 pg (26.0-34.0); MCHC 26.9 g/dL (31.0-37.0); MCV 63.3 fL (80.0-100.0); PLATELET COUNT 326 10x3/uL (130-400); RDW 20.3 % (11.5-14.5)
[2017-11-17 16:11] LABS: ALBUMIN 3.4 g/dL (3.4-5.0); ANION GAP 12.4 mmol/L (8-16); BILIRUBIN - TOTAL 1.4 mg/dL (0.2-1.3); CALCIUM 8.1 mg/dL (8.5-10.1); CARBON DIOXIDE 33.9 mmol/L (21.0-32.0); CREATININE - SERUM 1.6 mg/dL (0.6-1.3); PROTEIN - SERUM 6.6 g/dL (6.4-8.2)
[2017-11-17 16:12] LABS: EOSINOPHILS 4 % (0-7); LYMPHOCYTES 4 % (15-50); MONOCYTES 2 % (2-11); NEUTROPHILS 90 % (40-80); PLATELET ESTIMATE NORMAL
[2017-11-17 16:14] LABS: % SATURATION 3 % (15-55); IRON 15 ug/dl (35-150); TOTAL IRON BIND CAPACITY 465 ug/dl (260-445); UNSAT IRON BIND CAPACITY 450 ug/dl (150-375)
[2017-11-17 16:16] LABS: POTASSIUM - SERUM 2.3 mmol/L (3.5-5.1)
[2017-11-17 17:41] LABS: APPEARANCE CLEAR (CLEAR); BILIRUBIN NEGATIVE (NEGATIVE); COLOR YELLOW (YELLOW); GLUCOSE NEGATIVE (NEGATIVE); KETONE NEGATIVE (NEGATIVE); NITRITE NEGATIVE (NEGATIVE); PROTEIN TRACE mg/dL (NEGATIVE); UROBILINOGEN NORMAL (NORMAL)
[2017-11-17 18:00] LABS: INR 1.24 (0.85-1.17); PROTIME 15.1 SECONDS (11.6-15.0)
[2017-11-17 18:01] LABS: APTT 33.5 SECONDS (22.8-39.4)
[2017-11-18 05:09] LABS: RBC 3.94 10x6/uL (4.00-5.40); WBC 20.1 10x3/uL (4.8-10.8)
[2017-11-18 05:10] LABS: BASOPHILS 0.1 % (0-2); EOSINOPHILS 0.1 % (0-7); HEMATOCRIT 26.2 % (36.0-48.0); HEMOGLOBIN 7.5 g/dL (12-16); IMMATURE GRANULOCYTES 0.3 % (0-5); LYMPHOCYTES 4.9 % (15-50); MCHC 28.6 g/dL (31.0-37.0); MCV 66.5 fL (80.0-100.0); MONOCYTES 6.1 % (2-11); NEUTROPHILS 88.5 % (40-80); PLATELET COUNT 298 10x3/uL (130-400); RDW 21.5 % (11.5-14.5)
[2017-11-18 05:42] LABS: ALBUMIN 3.3 g/dL (3.4-5.0); BILIRUBIN - TOTAL 2.38 mg/dL (0.2-1.3); CALCIUM 8.3 mg/dL (8.5-10.1); CARBON DIOXIDE 33.3 mmol/L (21.0-32.0); CREATININE - SERUM 1.7 mg/dL (0.6-1.3); PROTEIN - SERUM 6.5 g/dL (6.4-8.2)
[2017-11-18 05:45] LABS: ANION GAP 15.8 mmol/L (8-16); POTASSIUM - SERUM 3.1 mmol/L (3.5-5.1)
[2017-11-18 09:27] LABS: % SATURATION 9 % (15-55); IRON 40 ug/dl (35-150); TOTAL IRON BIND CAPACITY 425 ug/dl (260-445); UNSAT IRON BIND CAPACITY 385 ug/dl (150-375)
[2017-11-18 17:24] VITALS: BP 147/41
[2017-11-18 18:23] LABS: HEMATOCRIT 31.8 % (36.0-48.0); HEMOGLOBIN 9.7 g/dL (12-16)
[2017-11-18 20:00] VITALS: BP 134/68
[2017-11-18 20:35] VITALS: BP 134/68; BMI 39.1
[2017-11-19] VITALS: BP 190/56
[2017-11-19 04:54] VITALS: BP 110/71
[2017-11-19 06:24] LABS: BASOPHILS 0.1 % (0-2); EOSINOPHILS 0 % (0-7); HEMOGLOBIN 10.3 g/dL (12-16); IMMATURE GRANULOCYTES 0.5 % (0-5); LYMPHOCYTES 1.1 % (15-50); MCH 21.5 pg (26.0-34.0); MCHC 30.3 g/dL (31.0-37.0); MONOCYTES 1.2 % (2-11); NEUTROPHILS 97.1 % (40-80); PLATELET COUNT 265 10x3/uL (130-400); RDW 24.3 % (11.5-14.5); WBC 17.3 10x3/uL (4.8-10.8)
[2017-11-19 06:28] LABS: MCV 71.1 fL (80.0-100.0); RBC 4.78 10x6/uL (4.00-5.40)
[2017-11-19 06:58] LABS: ALBUMIN 3.5 g/dL (3.4-5.0); BILIRUBIN - TOTAL 2.31 mg/dL (0.2-1.3); CALCIUM 8.4 mg/dL (8.5-10.1); PRE-ALBUMIN 14.2 mg/dL (18.0-35.7); PROTEIN - SERUM 6.6 g/dL (6.4-8.2)
[2017-11-19 07:05] LABS: CREATININE - SERUM 1.2 mg/dL (0.6-1.3)
[2017-11-19 07:26] LABS: INR 1.16 (0.85-1.17); PROTIME 14.4 SECONDS (11.6-15.0)
[2017-11-19 07:48] VITALS: BP 182/59
[2017-11-19 10:46] LABS: MAGNESIUM - SERUM 1.7 mg/dL (1.8-2.4); PHOSPHOROUS 3.2 mg/dL (2.5-4.9)
[2017-11-19 12:09] VITALS: BP 194/64
[2017-11-19 15:27] VITALS: BP 163/54
[2017-11-20 00:25] VITALS: BP 180/61
[2017-11-20 04:36] LABS: BASOPHILS 0 % (0-2); EOSINOPHILS 0 % (0-7); HEMATOCRIT 33.6 % (36.0-48.0); HEMOGLOBIN 9.9 g/dL (12-16); IMMATURE GRANULOCYTES 0.5 % (0-5); LYMPHOCYTES 1.1 % (15-50); MCH 21.4 pg (26.0-34.0); MCHC 29.5 g/dL (31.0-37.0); MCV 72.6 fL (80.0-100.0); MONOCYTES 4.8 % (2-11); NEUTROPHILS 93.6 % (40-80); PLATELET COUNT 266 10x3/uL (130-400); RBC 4.63 10x6/uL (4.00-5.40); WBC 22.1 10x3/uL (4.8-10.8)
[2017-11-20 05:02] LABS: ALBUMIN 3.3 g/dL (3.4-5.0); ANION GAP 10.1 mmol/L (8-16); BILIRUBIN - TOTAL 1.4 mg/dL (0.2-1.3); CALCIUM 8.8 mg/dL (8.5-10.1); CARBON DIOXIDE 35.6 mmol/L (21.0-32.0); PROTEIN - SERUM 6.3 g/dL (6.4-8.2)
[2017-11-20 05:03] LABS: POTASSIUM - SERUM 2.7 mmol/L (3.5-5.1)
[2017-11-20 05:08] VITALS: BP 190/67
[2017-11-20 08:14] VITALS: BP 178/58
[2017-11-20 10:27] LABS: MAGNESIUM - SERUM 1.8 mg/dL (1.8-2.4); PHOSPHOROUS 2.7 mg/dL (2.5-4.9)
[2017-11-20 12:10] VITALS: BP 210/66
[2017-11-20 12:15] LABS: HELICOBACTER PYLORI IGM AB 1.1 units (0.0-8.9)
[2017-11-20 15:49] VITALS: BP 170/62
[2017-11-20 22:10] VITALS: BP 175/64
[2017-11-21 00:14] VITALS: BP 176/79
[2017-11-21 05:47] LABS: BASOPHILS 0 % (0-2); EOSINOPHILS 0 % (0-7); HEMATOCRIT 35.6 % (36.0-48.0); HEMOGLOBIN 10.3 g/dL (12-16); IMMATURE GRANULOCYTES 0.6 % (0-5); LYMPHOCYTES 1.3 % (15-50); MCH 21.2 pg (26.0-34.0); MCHC 28.9 g/dL (31.0-37.0); MCV 73.3 fL (80.0-100.0); MONOCYTES 5.2 % (2-11); NEUTROPHILS 92.9 % (40-80); PLATELET COUNT 240 10x3/uL (130-400); RBC 4.86 10x6/uL (4.00-5.40); RDW 26.8 % (11.5-14.5); WBC 24.7 10x3/uL (4.8-10.8)
[2017-11-21 06:06] LABS: ALBUMIN 3.1 g/dL (3.4-5.0); ANION GAP 10.8 mmol/L (8-16); BILIRUBIN - TOTAL 1.1 mg/dL (0.2-1.3); CALCIUM 8.3 mg/dL (8.5-10.1); CARBON DIOXIDE 34.1 mmol/L (21.0-32.0); PROTEIN - SERUM 6.6 g/dL (6.4-8.2)
[2017-11-21 06:08] LABS: POTASSIUM - SERUM 2.9 mmol/L (3.5-5.1)
[2017-11-21 06:33] VITALS: BP 181/69
[2017-11-21 08:54] VITALS: BP 185/65
[2017-11-21 10:09] LABS: MAGNESIUM - SERUM 1.8 mg/dL (1.8-2.4); PHOSPHOROUS 2.6 mg/dL (2.5-4.9)
[2017-11-21 22:10] VITALS: BP 139/73
[2017-11-22 01:01] VITALS: BP 172/53
[2017-11-22 05:38] LABS: BASOPHILS 0 % (0-2); EOSINOPHILS 0 % (0-7); HEMATOCRIT 37.7 % (36.0-48.0); HEMOGLOBIN 10.8 g/dL (12-16); IMMATURE GRANULOCYTES 0.5 % (0-5); LYMPHOCYTES 2.3 % (15-50); MCH 21.1 pg (26.0-34.0); MCHC 28.6 g/dL (31.0-37.0); MCV 73.5 fL (80.0-100.0); NEUTROPHILS 93.2 % (40-80); PLATELET COUNT 248 10x3/uL (130-400); RBC 5.13 10x6/uL (4.00-5.40); RDW 27.5 % (11.5-14.5); WBC 23.2 10x3/uL (4.8-10.8)
[2017-11-22 05:39] VITALS: BP 176/65
[2017-11-22 05:44] LABS: ALBUMIN 2.9 g/dL (3.4-5.0); ANION GAP 11.4 mmol/L (8-16); CALCIUM 8.3 mg/dL (8.5-10.1); CARBON DIOXIDE 34.6 mmol/L (21.0-32.0); CREATININE - SERUM 0.9 mg/dL (0.6-1.3); PHOSPHOROUS 2.1 mg/dL (2.5-4.9); PROTEIN - SERUM 6.2 g/dL (6.4-8.2)
[2017-11-22 10:00] VITALS: BP 160/86
[2017-11-22 11:48] VITALS: BP 186/97
[2017-11-22 21:55] VITALS: BP 96/53
[2017-11-23 00:40] VITALS: BP 177/65
[2017-11-23 04:27] LABS: BASOPHILS 0 % (0-2); EOSINOPHILS 0.1 % (0-7); HEMATOCRIT 41.1 % (36.0-48.0); HEMOGLOBIN 11.9 g/dL (12-16); IMMATURE GRANULOCYTES 0.7 % (0-5); LYMPHOCYTES 5.1 % (15-50); MCH 21.3 pg (26.0-34.0); MCV 73.4 fL (80.0-100.0); MONOCYTES 7.7 % (2-11); NEUTROPHILS 86.4 % (40-80); PLATELET COUNT 269 10x3/uL (130-400); RDW 28.1 % (11.5-14.5)
[2017-11-23 04:50] VITALS: BP 161/74
[2017-11-23 04:50] LABS: ALBUMIN 2.8 g/dL (3.4-5.0); ALKALINE PHOSPHATASE 94 U/L (46-116); ALT (SGPT) 26 U/L (10-68); CALC OSMOLALITY 292 mosm/kg (275-300); CALCIUM 8.4 mg/dL (8.5-10.1); CARBON DIOXIDE 37.5 mmol/L (21.0-32.0); CHLORIDE - SERUM 104 mmol/L (98-107); CREATININE - SERUM 0.7 mg/dL (0.6-1.3); MAGNESIUM - SERUM 2.2 mg/dL (1.8-2.4); POTASSIUM - SERUM 3.3 mmol/L (3.5-5.1); PROTEIN - SERUM 6.1 g/dL (6.4-8.2); SODIUM 147 mmol/L (136-145); UREA NITROGEN 15 mg/dL (7-18); eGFR NON AFRICAN AMERICAN 86 mL/min (90-120)
[2017-11-23 04:54] LABS: GLUCOSE 98 mg/dL (74-106); PHOSPHOROUS 3.1 mg/dL (2.5-4.9)
[2017-11-23 08:19] VITALS: BP 130/78
[2017-11-23 12:54] VITALS: BP 108/57
[2017-11-23 16:00] VITALS: BP 120/57
[2017-11-23 20:00] VITALS: BP 186/69
[2017-11-24 04:00] VITALS: BP 163/71
[2017-11-24 05:53] LABS: BASOPHILS 0 % (0-2); EOSINOPHILS 0 % (0-7); HEMATOCRIT 41.3 % (36.0-48.0); HEMOGLOBIN 12.2 g/dL (12-16); IMMATURE GRANULOCYTES 0.8 % (0-5); LYMPHOCYTES 1.4 % (15-50); MCH 21.5 pg (26.0-34.0); MCHC 29.5 g/dL (31.0-37.0); MCV 72.8 fL (80.0-100.0); MONOCYTES 4.7 % (2-11); NEUTROPHILS 93.1 % (40-80); PLATELET COUNT 269 10x3/uL (130-400); RBC 5.67 10x6/uL (4.00-5.40); RDW 28.5 % (11.5-14.5); WBC 23.3 10x3/uL (4.8-10.8)
[2017-11-24 06:28] LABS: ALBUMIN 2.7 g/dL (3.4-5.0); BILIRUBIN - TOTAL 1.1 mg/dL (0.2-1.3); CALCIUM 8.4 mg/dL (8.5-10.1); CARBON DIOXIDE 31.9 mmol/L (21.0-32.0); PROTEIN - SERUM 6.2 g/dL (6.4-8.2)
[2017-11-24 06:30] LABS: ANION GAP 14.3 mmol/L (8-16); CREATININE - SERUM 0.9 mg/dL (0.6-1.3); POTASSIUM - SERUM 4.2 mmol/L (3.5-5.1)
[2017-11-24 08:13] VITALS: BP 156/57
[2017-11-24 16:18] VITALS: BP 130/65
[2017-11-24 20:00] VITALS: BP 138/72
[2017-11-25 04:00] VITALS: BP 207/79
[2017-11-25 04:43] LABS: BASOPHILS 0 % (0-2); EOSINOPHILS 0 % (0-7); HEMATOCRIT 39.9 % (36.0-48.0); HEMOGLOBIN 11.8 g/dL (12-16); IMMATURE GRANULOCYTES 1.5 % (0-5); LYMPHOCYTES 1.5 % (15-50); MCH 21.3 pg (26.0-34.0); MCHC 29.6 g/dL (31.0-37.0); MONOCYTES 2.8 % (2-11); NEUTROPHILS 94.2 % (40-80); PLATELET COUNT 299 10x3/uL (130-400); RBC 5.54 10x6/uL (4.00-5.40); RDW 28.8 % (11.5-14.5); WBC 24.3 10x3/uL (4.8-10.8)
[2017-11-25 04:54] LABS: ALBUMIN 2.7 g/dL (3.4-5.0); ANION GAP 11.3 mmol/L (8-16); BILIRUBIN - TOTAL 0.8 mg/dL (0.2-1.3); CALCIUM 8.3 mg/dL (8.5-10.1); CARBON DIOXIDE 33.7 mmol/L (21.0-32.0); CREATININE - SERUM 0.8 mg/dL (0.6-1.3)
[2017-11-25 08:00] VITALS: BP 186/66
[2017-11-25 12:09] VITALS: BP 186/69
[2017-11-25 16:50] VITALS: BP 180/63
[2017-11-25 20:00] VITALS: BP 187/74
[2017-11-26] VITALS: BP 173/72
[2017-11-26 04:00] VITALS: BP 124/63
[2017-11-26 04:48] LABS: BASOPHILS 0.1 % (0-2); EOSINOPHILS 0 % (0-7); HEMATOCRIT 38.9 % (36.0-48.0); HEMOGLOBIN 11.4 g/dL (12-16); IMMATURE GRANULOCYTES 1.9 % (0-5); LYMPHOCYTES 1.2 % (15-50); MCH 21.4 pg (26.0-34.0); MCHC 29.3 g/dL (31.0-37.0); MONOCYTES 3.3 % (2-11); NEUTROPHILS 93.5 % (40-80); PLATELET COUNT 323 10x3/uL (130-400); RBC 5.33 10x6/uL (4.00-5.40); RDW 29.2 % (11.5-14.5); WBC 26.6 10x3/uL (4.8-10.8)
[2017-11-26 05:08] LABS: ALBUMIN 2.5 g/dL (3.4-5.0); ANION GAP 13.4 mmol/L (8-16); BILIRUBIN - TOTAL 0.71 mg/dL (0.2-1.3); CALCIUM 8.5 mg/dL (8.5-10.1); CARBON DIOXIDE 28.2 mmol/L (21.0-32.0); POTASSIUM - SERUM 4.6 mmol/L (3.5-5.1); PROTEIN - SERUM 5.8 g/dL (6.4-8.2)
[2017-11-26 08:08] VITALS: BP 208/73
[2017-11-26 11:43] VITALS: BP 156/59
[2017-11-26 15:41] VITALS: BP 155/69
[2017-11-26 20:00] VITALS: BP 150/66
[2017-11-27] VITALS: BP 170/81
[2017-11-27 04:00] VITALS: BP 167/66
[2017-11-27 05:40] LABS: BASOPHILS 0.1 % (0-2); EOSINOPHILS 0.1 % (0-7); HEMATOCRIT 39.4 % (36.0-48.0); HEMOGLOBIN 11.3 g/dL (12-16); IMMATURE GRANULOCYTES 1.9 % (0-5); LYMPHOCYTES 3.1 % (15-50); MCH 21.2 pg (26.0-34.0); MCHC 28.7 g/dL (31.0-37.0); MCV 73.8 fL (80.0-100.0); MONOCYTES 7.2 % (2-11); NEUTROPHILS 87.6 % (40-80); PLATELET COUNT 331 10x3/uL (130-400); RBC 5.34 10x6/uL (4.00-5.40); RDW 29.1 % (11.5-14.5); WBC 27.2 10x3/uL (4.8-10.8)
[2017-11-27 06:21] LABS: ALBUMIN 2.5 g/dL (3.4-5.0); ANION GAP 13.1 mmol/L (8-16); BILIRUBIN - TOTAL 0.7 mg/dL (0.2-1.3); CALCIUM 8.1 mg/dL (8.5-10.1); CARBON DIOXIDE 27.4 mmol/L (21.0-32.0); CREATININE - SERUM 0.8 mg/dL (0.6-1.3); POTASSIUM - SERUM 4.5 mmol/L (3.5-5.1); PROTEIN - SERUM 5.6 g/dL (6.4-8.2)
[2017-11-27 08:12] VITALS: BP 167/61
[2017-11-27 12:30] VITALS: BP 151/61
[2017-11-27] MEDS ORDERED: NICODERM C1 PATCH .1 TRANSDERM (13:03)
[2017-11-27] MEDS ORDERED: OMEPRAZOLE40 MG PO (13:06)
[2017-11-27] MEDS ORDERED: PEPCID40 MG PO (13:06)
[2017-11-27] MEDS ORDERED: CARAFATE1 G/10 ML PO (13:07)
== END 2017-11-27 15:01 | disposition home health service (06) | DRG 377 ==
LOC: D.ER 14:30 → D.EDHOLD 16:32 → D.MS 16:32
PROVIDERS: Emergency Medicine; Family Medicine; Internal Medicine Gastroenterology; Internal Medicine Pulmonary Disease; Physician Assistant
PROC: 0BJ08ZZ Inspection of Tracheobronchial Tree, Via Natural or Artificial Opening Endoscopic (ICD-10-PCS; principal; 2017-11-26)
DX: K92.2 Gastrointestinal hemorrhage, unspecified (principal); J18.9 Pneumonia, unspecified organism; J96.01 Acute respiratory failure with hypoxia; I50.33 Acute on chronic diastolic (congestive) heart failure; J44.0 Chronic obstructive pulmonary disease with (acute) lower respiratory infection; J44.1 Chronic obstructive pulmonary disease with (acute) exacerbation; F17.203 Nicotine dependence unspecified, with withdrawal; D62 Acute posthemorrhagic anemia; R53.1 Weakness; R07.9 Chest pain, unspecified; G20 Parkinson's disease; I25.10 Atherosclerotic heart disease of native coronary artery without angina pectoris; I73.9 Peripheral vascular disease, unspecified; Z95.5 Presence of coronary angioplasty implant and graft; Z95.820 Peripheral vascular angioplasty status with implants and grafts; I11.0 Hypertensive heart disease with heart failure; E78.5 Hyperlipidemia, unspecified; J98.09 Other diseases of bronchus, not elsewhere classified

== ENCOUNTER → 2017-12-31 10:16 | Outpatient (CLI) | payer MEDICARE ==
[~2017-12-31 10:16] MED LIST changes: +CARAFATE1 G/10 ML PO; +NICODERM C1 PATCH .1 TRANSDERM; +PEPCID40 MG PO
== END | disposition home or self-care (01) ==
LOC: D.MRI 10:16
DX: R41.3 Other amnesia (principal)

== ENCOUNTER 2018-01-25 12:29 | Outpatient (CLI) | payer MEDICARE ==
[~2018-01-25] VITALS: Ht 162.6 cm; Wt 95.5 kg
[2018-01-25 13:24] VITALS: BP 151/35; Ht 162.6 cm; Wt 95.5 kg
== END 2018-01-25 19:10 | disposition home or self-care (01) ==
LOC: D.OPS 12:29
DX: D64.9 Anemia, unspecified (principal)

== ENCOUNTER → 2018-01-28 12:25 | Outpatient (CLI) | payer MEDICARE ==
[2018-01-25 13:24] VITALS: BMI 36.1
== END | disposition home or self-care (01) ==
LOC: D.RT 12:25
DX: J44.9 Chronic obstructive pulmonary disease, unspecified (principal)

== ENCOUNTER → 2018-03-03 16:35 | Outpatient (CLI) | payer MEDICARE ==
[2018-01-25 13:24] VITALS: BMI 36.1
[~2018-03-03 16:35] MED LIST changes: +BAYER CHEWABLE81 MG PO; +LASIX40 MG PO; +LEVAQUIN500 MG PO
[2018-03-03 17:01] LABS: BASOPHILS 0.6 % (0-2); EOSINOPHILS 1.1 % (0-7); HEMOGLOBIN 9.7 g/dL (12-16); IMMATURE GRANULOCYTES 0.2 % (0-5); LYMPHOCYTES 26.8 % (15-50); MCH 23.3 pg (26.0-34.0); MCHC 30.3 g/dL (31.0-37.0); MCV 76.7 fL (80.0-100.0); MEAN PLATELET VOLUME 9.9 fL (7.4-10.4); MONOCYTES 11.5 % (2-11); NEUTROPHILS 59.8 % (40-80); PLATELET COUNT 318 10x3/uL (130-400); RBC 4.17 10x6/uL (4.00-5.40); RDW 16.9 % (11.5-14.5); WBC 9.9 10x3/uL (4.8-10.8)
== END | disposition home or self-care (01) ==
LOC: D.LAB 16:35
PROVIDERS: Internal Medicine Gastroenterology
DX: D64.9 Anemia, unspecified (principal); R11.0 Nausea; R10.13 Epigastric pain; K59.00 Constipation, unspecified

== ENCOUNTER 2018-03-14 16:08 | Inpatient (IN) | payer MEDICARE ==
[2018-03-14] VITALS (8 sets, daily range): BP systolic 130–173; BP diastolic 58–88
[~2018-03-14] VITALS: Ht 162.6 cm; Wt 93.5 kg
[~2018-03-14 16:08] MED LIST changes: -BAYER CHEWABLE81 MG PO; -LASIX40 MG PO; -LEVAQUIN500 MG PO
[2018-03-14] MEDS ORDERED: BAYER CHEWABLE81 MG PO (16:21)
[2018-03-14 16:44] LABS: BASOPHILS 0.1 % (0-2); EOSINOPHILS 0.8 % (0-7); HEMATOCRIT 30.3 % (36.0-48.0); HEMOGLOBIN 9.2 g/dL (12-16); IMMATURE GRANULOCYTES 0.3 % (0-5); LYMPHOCYTES 8.9 % (15-50); MCH 22.8 pg (26.0-34.0); MCHC 30.4 g/dL (31.0-37.0); MCV 75.2 fL (80.0-100.0); MEAN PLATELET VOLUME 10.6 fL (7.4-10.4); MONOCYTES 5.7 % (2-11); NEUTROPHILS 84.2 % (40-80); PLATELET COUNT 302 10x3/uL (130-400); RBC 4.03 10x6/uL (4.00-5.40); WBC 15.5 10x3/uL (4.8-10.8)
[2018-03-14 17:13] LABS: ALBUMIN 3.5 g/dL (3.4-5.0); ANION GAP 9.7 mmol/L (8-16); BILIRUBIN - TOTAL 0.53 mg/dL (0.2-1.3); CALCIUM 9.3 mg/dL (8.5-10.1); CARBON DIOXIDE 32.2 mmol/L (21.0-32.0); POTASSIUM - SERUM 3.9 mmol/L (3.5-5.1)
[2018-03-14 17:24] LABS: APTT 30.1 SECONDS (22.8-39.4); PROTIME 12.8 SECONDS (11.6-15.0)
[2018-03-14 17:44] LABS: PRO BNP 554 pg/mL (0-450)
[2018-03-14 17:46] LABS: TROPONIN-I < 0.017 ng/mL (0.000-0.060)
[2018-03-14 18:52] LABS: HEMATOCRIT 29.7 % (36.0-48.0)
[2018-03-15] VITALS (14 sets, daily range): BP systolic 88–168; BP diastolic 47–97; Ht 162.6 cm; Wt 93.5 kg
[2018-03-15 03:26] LABS: HEMATOCRIT 28.9 % (36.0-48.0); HEMOGLOBIN 8.8 g/dL (12-16)
[2018-03-15 03:38] LABS: CALCIUM 8.7 mg/dL (8.5-10.1); CREATININE - SERUM 1.1 mg/dL (0.6-1.3)
[2018-03-15 11:53] LABS: CKMB 1.4 U/L (0.0-3.6); CREATINE KINASE 103 UL (21-215)
[2018-03-15 11:55] LABS: TROPONIN-I < 0.017 ng/mL (0.000-0.060)
[2018-03-15 16:20] LABS: CKMB 1.5 U/L (0.0-3.6); CREATINE KINASE 111 UL (21-215)
[2018-03-15 16:21] LABS: TROPONIN-I < 0.017 ng/mL (0.000-0.060)
[2018-03-15 22:13] LABS: CKMB 1.7 U/L (0.0-3.6); CREATINE KINASE 111 UL (21-215)
[2018-03-15 22:23] LABS: TROPONIN-I < 0.017 ng/mL (0.000-0.060)
[2018-03-16 00:08] VITALS: BP 144/59
[2018-03-16 04:00] VITALS: BP 146/42
[2018-03-16 07:10] LABS: BASOPHILS 0.1 % (0-2); HEMATOCRIT 26.1 % (36.0-48.0); HEMOGLOBIN 7.8 g/dL (12-16); IMMATURE GRANULOCYTES 0.1 % (0-5); LYMPHOCYTES 15.5 % (15-50); MCH 22.7 pg (26.0-34.0); MCHC 29.9 g/dL (31.0-37.0); MCV 75.9 fL (80.0-100.0); MONOCYTES 11.4 % (2-11); NEUTROPHILS 67.9 % (40-80); PLATELET COUNT 257 10x3/uL (130-400); RBC 3.44 10x6/uL (4.00-5.40); RDW 17.1 % (11.5-14.5); WBC 7.6 10x3/uL (4.8-10.8)
[2018-03-16 07:34] LABS: ANION GAP 7.1 mmol/L (8-16); CALCIUM 8.8 mg/dL (8.5-10.1); CARBON DIOXIDE 29.6 mmol/L (21.0-32.0); CREATININE - SERUM 0.9 mg/dL (0.6-1.3); POTASSIUM - SERUM 3.7 mmol/L (3.5-5.1)
[2018-03-16 08:11] VITALS: BP 161/46
[2018-03-16 13:04] VITALS: BP 186/53
[2018-03-16 14:23] LABS: SPE - A/G RATIO 1.1 (0.7-1.7); SPE - ALBUMIN 3.4 g/dL (2.9-4.4); SPE - ALPHA-1 GLOBULIN 0.2 g/dL (0.0-0.4); SPE - ALPHA-2 GLOBULIN 0.7 g/dL (0.4-1.0); SPE - BETA GLOBULIN 1.1 g/dL (0.7-1.3); SPE - M-SPIKE Not Observed g/dL (Not Observed); SPE - TOTAL PROTEIN 6.4 g/dL (6.0-8.5)
[2018-03-16 16:55] VITALS: BP 172/51
[2018-03-16 20:00] VITALS: BP 164/50
[2018-03-16 20:29] LABS: APPEARANCE CLEAR (CLEAR); BILIRUBIN NEGATIVE (NEGATIVE); COLOR YELLOW (YELLOW); GLUCOSE NEGATIVE (NEGATIVE); KETONE NEGATIVE (NEGATIVE); NITRITE NEGATIVE (NEGATIVE); PROTEIN TRACE mg/dL (NEGATIVE); UROBILINOGEN NORMAL (NORMAL)
[2018-03-17] VITALS (9 sets, daily range): BP systolic 137–201; BP diastolic 42–69
[2018-03-17 07:25] LABS: BASOPHILS 0.2 % (0-2); EOSINOPHILS 2.8 % (0-7); HEMATOCRIT 30.1 % (36.0-48.0); HEMOGLOBIN 9.3 g/dL (12-16); IMMATURE GRANULOCYTES 0.2 % (0-5); LYMPHOCYTES 14.2 % (15-50); MCH 23.8 pg (26.0-34.0); MCHC 30.9 g/dL (31.0-37.0); MEAN PLATELET VOLUME 10.1 fL (7.4-10.4); MONOCYTES 10.1 % (2-11); NEUTROPHILS 72.5 % (40-80); PLATELET COUNT 234 10x3/uL (130-400); RBC 3.91 10x6/uL (4.00-5.40); RDW 18.3 % (11.5-14.5); WBC 8.8 10x3/uL (4.8-10.8)
[2018-03-17 07:50] LABS: ANION GAP 8.1 mmol/L (8-16); CARBON DIOXIDE 31.5 mmol/L (21.0-32.0); CREATININE - SERUM 0.8 mg/dL (0.6-1.3); POTASSIUM - SERUM 3.6 mmol/L (3.5-5.1)
[2018-03-18 05:28] LABS: BASOPHILS 0.3 % (0-2); EOSINOPHILS 0.9 % (0-7); HEMATOCRIT 29.4 % (36.0-48.0); HEMOGLOBIN 9.2 g/dL (12-16); IMMATURE GRANULOCYTES 0.2 % (0-5); LYMPHOCYTES 15.1 % (15-50); MCH 24.2 pg (26.0-34.0); MCHC 31.3 g/dL (31.0-37.0); MCV 77.4 fL (80.0-100.0); MEAN PLATELET VOLUME 10.9 fL (7.4-10.4); MONOCYTES 11.4 % (2-11); NEUTROPHILS 72.1 % (40-80); PLATELET COUNT 235 10x3/uL (130-400); RDW 18.8 % (11.5-14.5); WBC 9.9 10x3/uL (4.8-10.8)
[2018-03-18 05:37] LABS: ANION GAP 9.1 mmol/L (8-16); CALCIUM 9.2 mg/dL (8.5-10.1); CARBON DIOXIDE 32.4 mmol/L (21.0-32.0); CREATININE - SERUM 0.8 mg/dL (0.6-1.3); POTASSIUM - SERUM 3.5 mmol/L (3.5-5.1)
[2018-03-18 08:06] VITALS: BP 148/64
[2018-03-18 13:04] VITALS: BP 179/64
[2018-03-18 22:09] VITALS: BP 151/54
[2018-03-19 04:55] VITALS: BP 154/57
[2018-03-19 05:26] LABS: BASOPHILS 0.4 % (0-2); EOSINOPHILS 2.9 % (0-7); HEMATOCRIT 28.9 % (36.0-48.0); HEMOGLOBIN 8.8 g/dL (12-16); IMMATURE GRANULOCYTES 0.3 % (0-5); LYMPHOCYTES 17.5 % (15-50); MCH 23.7 pg (26.0-34.0); MCHC 30.4 g/dL (31.0-37.0); MCV 77.7 fL (80.0-100.0); MEAN PLATELET VOLUME 11.6 fL (7.4-10.4); MONOCYTES 12.9 % (2-11); PLATELET COUNT 249 10x3/uL (130-400); RBC 3.72 10x6/uL (4.00-5.40); RDW 19.3 % (11.5-14.5); WBC 7.9 10x3/uL (4.8-10.8)
[2018-03-19 05:31] LABS: ANION GAP 8.9 mmol/L (8-16); CALCIUM 8.9 mg/dL (8.5-10.1); CARBON DIOXIDE 31.6 mmol/L (21.0-32.0); CREATININE - SERUM 0.8 mg/dL (0.6-1.3); POTASSIUM - SERUM 3.5 mmol/L (3.5-5.1)
[2018-03-19 08:32] VITALS: BP 159/52
[2018-03-19 11:44] VITALS: BP 158/50
[2018-03-19 16:17] VITALS: BP 159/54
[2018-03-19 19:56] VITALS: BP 169/55
[2018-03-20] VITALS: BP 147/45
[2018-03-20 04:35] VITALS: BP 181/62
[2018-03-20 06:44] LABS: BASOPHILS 0.5 % (0-2); EOSINOPHILS 4.3 % (0-7); HEMATOCRIT 31.7 % (36.0-48.0); HEMOGLOBIN 9.7 g/dL (12-16); IMMATURE GRANULOCYTES 0.5 % (0-5); LYMPHOCYTES 17.4 % (15-50); MCH 24.1 pg (26.0-34.0); MCHC 30.6 g/dL (31.0-37.0); MCV 78.9 fL (80.0-100.0); MONOCYTES 14.3 % (2-11); PLATELET COUNT 237 10x3/uL (130-400); RBC 4.02 10x6/uL (4.00-5.40); WBC 7.6 10x3/uL (4.8-10.8)
[2018-03-20 08:02] VITALS: BP 152/57
[2018-03-20 11:53] VITALS: BP 155/50
[2018-03-20 16:12] VITALS: BP 149/59
[2018-03-20 19:59] VITALS: BP 160/49
[2018-03-21] VITALS: BP 153/58
[2018-03-21 04:00] VITALS: BP 179/49
[2018-03-21 06:46] LABS: BASOPHILS 0.4 % (0-2); EOSINOPHILS 3.1 % (0-7); HEMATOCRIT 30.8 % (36.0-48.0); HEMOGLOBIN 9.3 g/dL (12-16); IMMATURE GRANULOCYTES 0.7 % (0-5); LYMPHOCYTES 17.1 % (15-50); MCHC 30.2 g/dL (31.0-37.0); MCV 79.4 fL (80.0-100.0); MEAN PLATELET VOLUME 11.1 fL (7.4-10.4); MONOCYTES 11.4 % (2-11); NEUTROPHILS 67.3 % (40-80); PLATELET COUNT 269 10x3/uL (130-400); RBC 3.88 10x6/uL (4.00-5.40); RDW 19.9 % (11.5-14.5); WBC 8.1 10x3/uL (4.8-10.8)
[2018-03-21 09:18] VITALS: BP 129/57; BP 155/50
[2018-03-21 13:25] VITALS: BP 98/44
[2018-03-21] MEDS ORDERED: LEVAQUIN500 MG PO (14:32)
[2018-03-21] MEDS ORDERED: NICODERM C1 PATCH .1 TRANSDERM (14:32)
[2018-03-21] MEDS ORDERED: LASIX40 MG PO (14:33)
== END 2018-03-21 17:26 | disposition home or self-care (01) | DRG 377 ==
LOC: D.ER 16:08 → D.EDHOLD 18:32 → D.ICU 18:32 → D.MS 18:32 → D.ICU 18:52 → D.MS 03-15 21:01
PROVIDERS: Emergency Medicine; Internal Medicine Gastroenterology; Internal Medicine Nephrology
PROC: 0DB78ZX Excision of Stomach, Pylorus, Via Natural or Artificial Opening Endoscopic, Diagnostic (ICD-10-PCS; principal; 2018-03-15 07:10)
PROC: 0DBL8ZX Excision of Transverse Colon, Via Natural or Artificial Opening Endoscopic, Diagnostic (ICD-10-PCS; 2018-03-18)
PROC: 0W3P8ZZ Control Bleeding in Gastrointestinal Tract, Via Natural or Artificial Opening Endoscopic (ICD-10-PCS; 2018-03-18)
DX: K55.21 Angiodysplasia of colon with hemorrhage (principal); J69.0 Pneumonitis due to inhalation of food and vomit; D62 Acute posthemorrhagic anemia; N17.9 Acute kidney failure, unspecified; K29.60 Other gastritis without bleeding; K29.81 Duodenitis with bleeding; K92.0 Hematemesis; K44.9 Diaphragmatic hernia without obstruction or gangrene; F17.200 Nicotine dependence, unspecified, uncomplicated; I10 Essential (primary) hypertension; J44.9 Chronic obstructive pulmonary disease, unspecified; I25.10 Atherosclerotic heart disease of native coronary artery without angina pectoris; Z85.43 Personal history of malignant neoplasm of ovary; D50.9 Iron deficiency anemia, unspecified; D17.79 Benign lipomatous neoplasm of other sites; K63.5 Polyp of colon

== ENCOUNTER → 2018-04-09 10:25 | Outpatient (CLI) | payer MEDICARE ==
[2018-03-15 19:30] VITALS: BMI 35.4
[~2018-04-09 10:25] MED LIST changes: +BAYER CHEWABLE81 MG PO; +LASIX40 MG PO; +LEVAQUIN500 MG PO
== END | disposition home or self-care (01) ==
LOC: D.US 04-06 16:00
DX: I73.9 Peripheral vascular disease, unspecified (principal)

== ENCOUNTER → 2018-04-16 10:11 | Outpatient (CLI) | payer MEDICARE ==
[2018-03-15 19:30] VITALS: BMI 35.4
== END | disposition home or self-care (01) ==
LOC: D.CT 10:11
DX: I73.9 Peripheral vascular disease, unspecified (principal)

== ENCOUNTER 2018-12-14 12:41 | Inpatient (IN) | payer MEDICARE ==
[~2018-12-14] VITALS: Ht 162.6 cm; Wt 96.7 kg
[2018-12-14] MEDS ORDERED: SEROQUEL25 MG PO (12:48)
[2018-12-14] MEDS ORDERED: SEROQUEL50 MG PO (12:48)
[2018-12-14 13:03] VITALS: BP 160/43
[2018-12-14 13:31] VITALS: BP 159/43
[2018-12-14 13:41] LABS: BASOPHILS 0.3 % (0-2); EOSINOPHILS 1.9 % (0-7); HEMATOCRIT 35.1 % (36.0-48.0); HEMOGLOBIN 10.9 g/dL (12-16); IMMATURE GRANULOCYTES 0.3 % (0-5); MCH 29.1 pg (26.0-34.0); MCHC 31.1 g/dL (31.0-37.0); MCV 93.6 fL (80.0-100.0); MEAN PLATELET VOLUME 11.2 fL (7.4-10.4); MONOCYTES 3.8 % (2-11); NEUTROPHILS 85.7 % (40-80); PLATELET COUNT 289 10x3/uL (130-400); RBC 3.75 10x6/uL (4.00-5.40); RDW 16.3 % (11.5-14.5); WBC 12.4 10x3/uL (4.8-10.8)
[2018-12-14 13:49] LABS: APTT 28.6 SECONDS (22.8-39.4); INR 0.93 (0.85-1.17)
[2018-12-14 13:57] LABS: ALBUMIN 3.6 g/dL (3.4-5.0); ALKALINE PHOSPHATASE 75 U/L (46-116); ALT (SGPT) 31 U/L (10-68); BILIRUBIN - TOTAL 0.34 mg/dL (0.2-1.3); CALC OSMOLALITY 289 mosm/kg (275-300); CARBON DIOXIDE 39.1 mmol/L (21.0-32.0); CHLORIDE - SERUM 102 mmol/L (98-107); CREATININE - SERUM 1.2 mg/dL (0.6-1.3); GLUCOSE 139 mg/dL (74-106); POTASSIUM - SERUM 3.2 mmol/L (3.5-5.1); SODIUM 143 mmol/L (136-145); UREA NITROGEN 21 mg/dL (7-18); eGFR NON AFRICAN AMERICAN 46 mL/min (90-120)
[2018-12-14 14:07] LABS: CKMB 7.2 U/L (0.0-3.6); CREATINE KINASE 279 UL (21-215); PRO BNP 353 pg/mL (0-450); TROPONIN-I < 0.017 ng/mL (0.000-0.060)
--- NOTE | 2018-12-14 14:22 | NUR ---
PT ASSISTED WITH BEDSIDE TOILET REQUESTED AND THEN BACK INTO BED. PT GIVEN ADDITIONAL BLANKET FOR COMFORT AND ICE WATER. PT DENIES ANY FURTHER NEEDS AT THIS TIME. CALL LIGHT IN REACH AND FAMILY PRESENT AT THE BEDSIDE. WILL CONITNUE TO MONITOR.
[2018-12-14 14:34] VITALS: BP 158/44
[2018-12-14 14:34] LABS: APPEARANCE CLEAR (CLEAR); BILIRUBIN NEGATIVE (NEGATIVE); COLOR YELLOW (YELLOW); GLUCOSE NEGATIVE (NEGATIVE); KETONE NEGATIVE (NEGATIVE); NITRITE NEGATIVE (NEGATIVE); PROTEIN TRACE mg/dL (NEGATIVE); UROBILINOGEN NORMAL (NORMAL)
--- NOTE | 2018-12-14 15:13 | NUR ---
PER DR. PEARSON, RT TO PLACE PT ON BIPAP AND DC O2 VIA NC.
--- NOTE | 2018-12-14 15:18 | NUR ---
PER DR. PEARSON, REPEAT EKG
[2018-12-14 16:00] VITALS: BP 162/45
--- NOTE | 2018-12-14 16:15 | MORECARE ---
CASE MANAGEMENT DISCHARGE SUMMARY PATIENT: YANET MALIK UNIT: [id number] ADM DATE: 12/14/18 AGE: 78 : 41 SEX: F ROOM/BED: D.2103 AUTHOR: GETACHEW VALLE PHYSICIAN: REFERRING PHYSICIAN: RODOLFO RAMIRES MD DATE OF SERVICE: 12/14/18 Discharge Plan Patient Name: YANET MALIK Facility[facility]:[place] : 1940 Planned Disposition: Anticipated Discharge Date: Discharge Date: Expected LOS: Initial Reviewer: [email or web address] Initial Review Date: 12/14/2018 Generated: 12/14/18 5:15 pm DCPIA - Discharge Planning Initial Assessment Updated by [email or web address]: Petrona Mike on 12/14/18 4:12 pm * Is the patient Alert and Oriented? No * How many steps to enter\exit or inside your home? * PCP Dr. Monet * [facility] * Preadmission Environment Home with Family * ADLs Partial Dependent * Partial ADLs (Assistance needed) Bathing Dressing Medication Management * Equipment Bedside Commode Nebulizer Oxygen Rolling Walker Shower Chair * Other Equipment Portable O2, E-tank DME: [employer] * List name and contact numbers for known caregivers / representatives who currently or will assist patient after discharge: Sammy Malik (c) [phone] (spouse) Samara Hinds #[phone] (dtr) * Verbal permission to speak to the caregivers and representatives has been obtained from the patient. Yes * Community resources currently utilized Home Health Private Duty Care * Please name any agencies selected above. [facility] (tech) for ADL's * Additional services required to return to the preadmission environment? Yes * Can the patient safely return to the preadmission environment? Yes * Has this patient been hospitalized within the prior 30 days at any hospital? No Patient Name: YANET MALIK Page [id number] at 1615 All edits/amendments must be made on the electronic document DICTATION DATE: 12/14/18 1615 FLOORLEADER: BLESSING 12/14/18 1615 RPT#: [id number] DC DATE: STATUS: ADM IN [facility] [address] [place] [address] END OF REPORT
--- NOTE | 2018-12-14 16:47 | NUR ---
PT ARRIVED FROM THE ER, ALERT AND ORIENTED X3, CALL LIGHT IN REACH, BI-PAP IN PLACE. FAMILY AT BEDSIDE.
--- NOTE | 2018-12-14 16:54 | MORECARE ---
CASE MANAGEMENT DISCHARGE SUMMARY PATIENT: YANET MALIK UNIT: [id number] ADM DATE: 12/14/18 AGE: 78 : 41 SEX: F ROOM/BED: D.2103 AUTHOR: LEONARD,DOC PHYSICIAN: REFERRING PHYSICIAN: RODOLFO RAMIRES MD DATE OF SERVICE: 12/14/18 Discharge Plan Patient Name: YANET MALIK Facility: [facility]:[place] : 1940 Planned Disposition: Anticipated Discharge Date: Discharge Date: Expected LOS: Initial Reviewer: [email or web address] Initial Review Date: 12/14/2018 Generated: 12/14/18 5:53 pm Comments DCP- Discharge Planning Updated by [email or web address]: Petrona Mike on 12/14/18 3:[address] CM met with patient and spouse, Sammy @bedside to discuss dc plans/needs. Patient is alert but not oriented (dx of Parkinson's. Spouse gives permission to speak with family members in room. PCP: Dr. Monet. Pharmacy: [facility]. Emergency contact: Sammy Malik (spouse) [phone], Samara Hinds (dtr) [phone]. DME: ([facility]) Shower chair, RW, BSC, O2, nebulizer, portable O2, E-tank. Family states patient is partially dependent in her care at home. HHS: [facility] is current, [facility] with tech assist for ADL's. Patient will require portable O2 for transportation home. Family will drive her home. Spouse denies that patient has been hospitalization within the past 30 days. DCPIA - Discharge Planning Initial Assessment Updated by [email or web address]: Petrona Mike on 12/14/18 4:12 pm * Is the patient Alert and Oriented? No * How many steps to enter\exit or inside your home? * PCP Dr. Monet * [facility] * Preadmission Environment Home with Family * ADLs Partial Dependent * Partial ADLs (Assistance needed) Bathing Dressing Medication Management * Equipment Bedside Commode Nebulizer Oxygen Rolling Walker Shower Chair * Other Equipment Portable O2, E-tank DME: [facility] * List name and contact numbers for known caregivers / representatives who currently or will assist patient after discharge: Sammy Malik (c) [phone] (spouse) Samara Hinds #[phone] (dtr) * Verbal permission to speak to the caregivers and representatives has been obtained from the patient. Yes * Community resources currently utilized Home Health Private Duty Care * Please name any agencies selected above. [facility] (tech) for ADL's * Additional services required to return to the preadmission environment? Yes * Can the patient safely return to the preadmission environment? Yes * Has this patient been hospitalized within the prior 30 days at any hospital? No Last DP export: 12/14/18 3:15 p Patient Name: YANET MALIK Page [phone] at 1654 All edits/amendments must be made on the electronic document DICTATION DATE: 12/14/181652 SHELVING SUPERVISOR: BLESSING 12/14/181652 RPT#: [id number] DC DATE: STATUS: ADM IN [facility] [address] [place] [address] END OF REPORT
[2018-12-14 18:41] VITALS: BMI 43.0
--- NOTE | 2018-12-14 18:48 | NUR ---
ASSESSMENT COMPLETE PT AAOX4 RESP NOTED WITH BIPAP ON SALINE LOCK TO LAC WITH SITE FREE OF REDNESS OR EDEMA OCCLUSIVE DRSG IN PLACE DENIES ANY NEEDS AT THIS TIME NAD NOTED
[2018-12-14 20:00] VITALS: BP 114/77
--- NOTE | 2018-12-14 20:47 | NUR ---
FAN TAKEN TO ROOM AT PTS REQUEST.
--- NOTE | 2018-12-14 21:27 | NUR ---
HS MEDS GIVEN WITH FRESH ICE WATER. BSC TAKEN TO ROOM FOR PTS CONVIENCE. SON AT BED SIDE, BED LOW, CL IN REACH.
[2018-12-15] VITALS: BP 103/41; BP 179/70
--- NOTE | 2018-12-15 03:15 | NUR ---
I have reviewed this patient and I concur with the Shift Assessment completed by the Licensed Practical Nurse today this shift.
[2018-12-15 04:00] VITALS: BP 165/53
[2018-12-15 06:30] LABS: BASOPHILS 0 % (0-2); EOSINOPHILS 0 % (0-7); HEMATOCRIT 35.5 % (36.0-48.0); HEMOGLOBIN 11.2 g/dL (12-16); LYMPHOCYTES 6.5 % (15-50); MCHC 31.5 g/dL (31.0-37.0); MEAN PLATELET VOLUME 11.2 fL (7.4-10.4); MONOCYTES 3.1 % (2-11); NEUTROPHILS 89.4 % (40-80); PLATELET COUNT 290 10x3/uL (130-400); RBC 3.86 10x6/uL (4.00-5.40); RDW 16.4 % (11.5-14.5); WBC 11.2 10x3/uL (4.8-10.8)
[2018-12-15 07:15] LABS: ALBUMIN 3.6 g/dL (3.4-5.0); ANION GAP 7.3 mmol/L (8-16); BILIRUBIN - TOTAL 0.49 mg/dL (0.2-1.3); CALCIUM 9.1 mg/dL (8.5-10.1); CARBON DIOXIDE 38.3 mmol/L (21.0-32.0); CREATININE - SERUM 1.2 mg/dL (0.6-1.3); POTASSIUM - SERUM 3.6 mmol/L (3.5-5.1); PROTEIN - SERUM 7.5 g/dL (6.4-8.2)
--- NOTE | 2018-12-15 07:29 | NUR ---
Patient and patient's family refused morning ABG. Patient did wear bipap all night last night, is alert and oriented, and reports no sob. Family member at bedside would like to wait until pulmonary sees Mrs. Jay before agreeing to "another needle stick"
--- NOTE | 2018-12-15 07:47 | MORECARE ---
CASE MANAGEMENT DISCHARGE SUMMARY PATIENT: YANET MALIK UNIT: [id number] ADM DATE: 12/14/18 AGE: 78 : 41 SEX: F ROOM/BED: D.2103 AUTHOR: LEONARD,DOC PHYSICIAN: REFERRING PHYSICIAN: RODOLFO RAMIRES MD DATE OF SERVICE: 12/15/18 Discharge Plan Patient Name: YANET MALIK Facility: [facility]:[place] : 1940 Planned Disposition: Home with Home Health Anticipated Discharge Date: Discharge Date: Expected LOS: Initial Reviewer: [id number] Initial Review Date: 12/14/2018 Generated: 12/15/18 8:47 am DCP- Discharge Planning Updated by [id number]: Petrona Mike on 12/14/18 3:[address] CM met with patient and spouse, Sammy @bedside to discuss dc plans/needs. Patient is alert but not oriented (dx of Parkinson's. Spouse gives permission to speak with family members in room. PCP: Dr. Monet. Pharmacy: [facility]. Emergency contact: Sammy Malik (spouse) [phone], Samara Hinds (dtr) [phone]. DME: ([facility]) Shower chair, RW, BSC, O2, nebulizer, portable O2, E-tank. Family states patient is partially dependent in her care at home. HHS: [facility] is current, [facility] with tech assist for ADL's. Patient will require portable O2 for transportation home. Family will drive her home. Spouse denies that patient has been hospitalization within the past 30 days. DCPIA - Discharge Planning Initial Assessment Updated by [email or web address]: Petrona Mike on 12/14/18 4:12 pm * Is the patient Alert and Oriented? No * How many steps to enter\exit or inside your home? * PCP Dr. Monet * Pharmacy [facility] * Preadmission Environment Home with Family * ADLs Partial Dependent * Partial ADLs (Assistance needed) Bathing Dressing Medication Management * Equipment Bedside Commode Nebulizer Oxygen Rolling Walker Shower Chair * Other Equipment Portable O2, E-tank DME: [facility] * List name and contact numbers for known caregivers / representatives who currently or will assist patient after discharge: Sammy Malik (c) [phone] (spouse) Samara Hinds #[phone] (dtr) * Verbal permission to speak to the caregivers and representatives has been obtained from the patient. Yes * Community resources currently utilized Home Health Private Duty Care * Please name any agencies selected above. [facility] (tech) for ADL's * Additional services required to return to the preadmission environment? Yes * Can the patient safely return to the preadmission environment? Yes * Has this patient been hospitalized within the prior 30 days at any hospital? No Last DP export: 12/14/18 3:54 p Patient Name: YANET MALIK Page [id number] at 0747 All edits/amendments must be made on the electronic document DICTATION DATE: 12/15/18745 INSURANCE CASE MANAGER: BLESSING 12/15/18745 RPT#: [id number] DC DATE: STATUS: ADM IN [facility] [address] [place] [address] END OF REPORT
--- NOTE | 2018-12-15 08:28 | NUR ---
AM MEDS GIVEN AT THIS TIME. PT IN BED, EATING BREAKFASST, DENIES ANY NEEDS AT THIS TIME. FAMILY AT BEDSIDE, NAD NOTED, WILL CONTINUE TO MONITOR.
[2018-12-15 08:50] VITALS: BMI 42.9
[2018-12-15 09:54] VITALS: BP 165/53
[2018-12-15 10:22] VITALS: Ht 162.6 cm; Wt 96.7 kg
--- NOTE | 2018-12-15 11:11 | NUR ---
SCDS ON BILAT, PT ALSO WANTS NICOTINE PATCH. PT DENIES ANY NEEDS AT THIS TIME. CALL LIGHT IN REACH, FAMILY AT BEDSIDE, NAD NOTED, WILL CONTINUE TO MONITOR.
--- NOTE | 2018-12-15 11:56 | NUR ---
PT DOES NOT MEET CRITIRIA TO HAVE DURAND CATHETER. D/C DURAND AT THIS TIME, WITH CATHETER TIP INTACT. HELPED PT TO BATHROOM, PT HAD SMALL HARD BM. ALSO HELPED PT UP TO CHAIR, PT DENIES ANY NEEDS AT THIS TIME. CALL LIGHT IN REACH, NAD NOTED, WILL CONTINUE TO MONITOR.
[2018-12-15 14:10] VITALS: BP 151/54
--- NOTE | 2018-12-15 15:31 | NUR ---
PT RESTING COMFORTABLY IN BED, GAVE IV SOLU-MEDROL AT THIS TIME. HELPED PT TO BEDSIDE COMMODE AND BACK TO BED, PT DENIES ANY OTHER NEEDS AT THIS TIME. CALL LIGHT IN REACH, FAMILY AT BEDSIDE, NAD NOTED, WILL CONTINUE TO MONITOR.
--- NOTE | 2018-12-15 16:18 | MORECARE ---
CASE MANAGEMENT DISCHARGE SUMMARY PATIENT: YANET MALIK UNIT: [id number] ADM DATE: 12/14/18 AGE: 78 : 41 SEX: F ROOM/BED: D.2103 AUTHOR: LEONARD,DOC PHYSICIAN: REFERRING PHYSICIAN: RODOLFO RAMIRES MD DATE OF SERVICE: 12/15/18 Discharge Plan Patient Name: YANET MALIK Facility: [facility]:[place] : 1940 Planned Disposition: Home with Home Health Anticipated Discharge Date: Discharge Date: Expected LOS: Initial Reviewer: [id number] Initial Review Date: 12/14/2018 Generated: 12/15/18 5:18 pm DCP- Discharge Planning Updated by [id number]: Petrona Mike on 12/14/18 3:[address] CM met with patient and spouse, Sammy @bedside to discuss dc plans/needs. Patient is alert but not oriented (dx of Parkinson's. Spouse gives permission to speak with family members in room. PCP: Dr. Monet. Pharmacy: [facility]. Emergency contact: Sammy Malik (spouse) [phone], Samara Hinds (dtr) [phone]. DME: ([facility]) Shower chair, RW, BSC, O2, nebulizer, portable O2, E-tank. Family states patient is partially dependent in her care at home. HHS: [facility] is current, [facility] with tech assist for ADL's. Patient will require portable O2 for transportation home. Family will drive her home. Spouse denies that patient has been hospitalization within the past 30 days. DCPIA - Discharge Planning Initial Assessment Updated by [id number]: Petrona Mike on 12/14/18 4:12 pm * Is the patient Alert and Oriented? No * How many steps to enter\exit or inside your home? * PCP Dr. Monet * Pharmacy [facility] * Preadmission Environment Home with Family * ADLs Partial Dependent * Partial ADLs (Assistance needed) Bathing Dressing Medication Management * Equipment Bedside Commode Nebulizer Oxygen Rolling Walker Shower Chair * Other Equipment Portable O2, E-tank DME: [facility] * List name and contact numbers for known caregivers / representatives who currently or will assist patient after discharge: Sammy Malik (c) [phone] (spouse) Samara Hinds #[phone] (dtr) * Verbal permission to speak to the caregivers and representatives has been obtained from the patient. Yes * Community resources currently utilized Home Health Private Duty Care * Please name any agencies selected above. [facility] (tech) for ADL's * Additional services required to return to the preadmission environment? Yes * Can the patient safely return to the preadmission environment? Yes * Has this patient been hospitalized within the prior 30 days at any hospital? No External Providers External Provider: [facility] Next Contact Date: 12/16/2018 Service Request Date: Service Type: Resolution: Reviewer: Comments: Tyrel DP export: 12/15/18 6:47 a Patient Name: YANET MALIK Page [phone] at 1618 All edits/amendments must be made on the electronic document DICTATION DATE: 12/15/188 COMMUTATOR INSPECTOR: BLESSING 12/15/18 1618 RPT#: [id number] DC DATE: STATUS: ADM IN [facility] [address] [place] [address] END OF REPORT
--- NOTE | 2018-12-15 16:36 | MORECARE ---
CASE MANAGEMENT DISCHARGE SUMMARY PATIENT: YANET MALIK UNIT: [id number] ADM DATE: 12/14/18 AGE: 78 : 41 SEX: F ROOM/BED: D.2103 AUTHOR: LEONARD,DOC PHYSICIAN: REFERRING PHYSICIAN: RODOLFO RAMIRES MD DATE OF SERVICE: 12/15/18 Discharge Plan Patient Name: YANET MALIK Facility: [facility]:[place] : 1940 Planned Disposition: Home with Home Health Anticipated Discharge Date: Discharge Date: Expected LOS: Initial Reviewer: [email or web address] Initial Review Date: 12/14/2018 Generated: 12/15/18 5:36 pm Comments DCP- Discharge Planning Updated by [id number]: Wolf Lemus on 12/15/18 3:[address] Patient Name: YANET MALIK Encounter No: [id number] : 1940 Primary Insurance: MEDICARE A & B Anticipated DC Date: Planned Disposition: Home with Home Health External Planned Provider: [facility] DCP follow-up note: CM REVIEWED CHART, PT HAS DOCTORS NOT INDICATING PT MAY NEED PORTABLE OXYGEN FOR DISCHARGE HOME. CM MET WITH PT AND SPOUSE IN ROOM TO DISCUSS DISCHARGE NEEDS. PT REPORTS HAVING HOME OXYGEN AND LARGE TANK ON WHEELS IN CASE ELECTRICITY GOES OUT. THEY DO NOT HAVE PORTABLE BOTTLES OR PORTABLE CONCENTRATOR AT HOME. PT REPORTS THAT DR. KNAPP TESTED HER ALREADY AND SHE HAS NOT YET GOTTEN PORTABLE OXYGEN. PT REPORTS PLAN TO RETURN HOME WITH [facility] RESUMPTION. PROVIDER LISTING PROVIDED, PT SIGNED CHOICE FOR [facility]. IMPORTANT MESSAGE FROM MEDICARE PROVIDED AND EXPLAINED. CM REVIEWED CHART, ORDER ENTERED FOR HOME OXYGEN TESTING TO DETERMINE IF PT WILL QUALIFY FOR PORTABLE OXYGEN PER MEDICARE STANDARDS. CM CALLED [facility], PT'S OXYGEN PROVIDER, WAS ADVISED BY DANA THAT IF PT QUALIFIES FOR OXYGEN, THE DOCTOR WILL ALSO HAVE TO NOTE THAT "THE PATIENT IS IN CHRONIC AND STABLE STATE" PRIOR TO DISCHARGE FOR [facility] TO ARRANGE ANY PORTABLE OXYGEN. CM FAXED HOSPITAL UPDATE TO [facility], . CM CONTINUES TO WAIT PORTABLE OXYGEN TESTING AND WILL ARRANGE IF PT QUALIFIES PRIOR TO DISCHARGE HOME. FOR DISCHARGE, NOTIFY [facility] AT [phone]; FAX DISCHARGE INFORMATION TO [place] AT [phone]. Wolf Lemus, CASE MANAGEMENT DCP- Discharge Planning Updated by [id number]: Petrona Mike on 12/14/18 3:[address] CM met with patient and spouse, Sammy @bedside to discuss dc plans/needs. Patient is alert but not oriented (dx of Parkinson's. Spouse gives permission to speak with family members in room. PCP: Dr. Knapp. Pharmacy: [facility]. Emergency contact: Sammysondra Malik (spouse) [phone], Samara Hinds (dtr) [phone]. DME: ([facility]) Shower chair, RW, BSC, O2, nebulizer, portable O2, E-tank. Family states patient is partially dependent in her care at home. HHS: [facility] is current, [facility] with tech assist for ADL's. Patient will require portable O2 for transportation home. Family will drive her home. Spouse denies that patient has been hospitalization within the past 30 days. DCPIA - Discharge Planning Initial Assessment Updated by [id number]: Petrona Mike on 12/14/18 4:12 pm * Is the patient Alert and Oriented? No * How many steps to enter\\exit or inside your home? * PCP Dr. Knapp * Pharmacy [facility] * Preadmission Environment Home with Family * ADLs Partial Dependent * Partial ADLs (Assistance needed) Bathing Dressing Medication Management * Equipment Bedside Commode Nebulizer Oxygen Rolling Walker Shower Chair * Other Equipment Portable O2, E-tank DME: [facility] * List name and contact numbers for known caregivers / representatives who currently or will assist patient after discharge: Sammy Malik (c) [phone] (spouse) Samara Hinds #[phone] (dtr) * Verbal permission to speak to the caregivers and representatives has been obtained from the patient. Yes * Community resources currently utilized Home Health Private Duty Care * Please name any agencies selected above. [facility] (tech) for ADL's * Additional services required to return to the preadmission environment? Yes * Can the patient safely return to the preadmission environment? Yes * Has this patient been hospitalized within the prior 30 days at any hospital? No Coverage Notice Reviewer: [id number] Crista Lemus Notice Issued Date-Time: 12/15/2018 10:40 Notice Type: Patient Choice Letter Notice Delivered To: Patient Relationship to Patient: Putty Worker Name: Delivery Method: HAND - Hand Delivered Leyda Days: Prior Verbal Notification: Recipient Understood Notice: Yes Recipient Signature: Yes Med Rec Note Co-signed by Attending: Coverage Notice Comment: [facility] Reviewer: [id number] Crista Lemus Notice Issued Date-Time: 12/15/2018 10:40 Notice Type: IM Discharge Notice Notice Delivered To: Patient Relationship to Patient: Putty Worker Name: Delivery Method: HAND - Hand Delivered Leyda Days: Prior Verbal Notification: Recipient Understood Notice: Yes Recipient Signature: Yes Med Rec Note Co-signed by Attending: Coverage Notice Comment: Last DP export: 12/15/18 3:18 p Patient Name: YANET MALIK Page [phone] at 1636 All edits/amendments must be made on the electronic document DICTATION DATE: 12/15/18 1635 JEWEL SETTER: BLESSING 12/15/18 1635 RPT#: [id number] DC DATE: STATUS: ADM IN [facility] [address] [place] [address] END OF REPORT
[2018-12-15 20:00] VITALS: BP 146/43
--- NOTE | 2018-12-15 20:45 | NUR ---
RESTARTED IV TO RT FORARM USING 22GAGE TIMES ONE TRY. FLUSHED AND OPSITE APPLIED
[2018-12-16 04:00] VITALS: BP 144/51
--- NOTE | 2018-12-16 04:17 | NUR ---
I have reviewed this patient and I concur with the Shift Assessment completed by the Licensed Practical Nurse today this shift.
[2018-12-16 05:07] LABS: BASOPHILS 0.1 % (0-2); EOSINOPHILS 0 % (0-7); HEMATOCRIT 33.9 % (36.0-48.0); HEMOGLOBIN 10.8 g/dL (12-16); IMMATURE GRANULOCYTES 0.4 % (0-5); LYMPHOCYTES 3.6 % (15-50); MCHC 31.9 g/dL (31.0-37.0); MCV 91.1 fL (80.0-100.0); MEAN PLATELET VOLUME 11.6 fL (7.4-10.4); NEUTROPHILS 91.9 % (40-80); PLATELET COUNT 305 10x3/uL (130-400); RBC 3.72 10x6/uL (4.00-5.40); RDW 16.8 % (11.5-14.5)
[2018-12-16 05:08] LABS: ALBUMIN 3.5 g/dL (3.4-5.0); ANION GAP 8.7 mmol/L (8-16); BILIRUBIN - TOTAL 0.42 mg/dL (0.2-1.3); CALCIUM 9.3 mg/dL (8.5-10.1); CARBON DIOXIDE 35.7 mmol/L (21.0-32.0); CREATININE - SERUM 1.2 mg/dL (0.6-1.3); POTASSIUM - SERUM 3.4 mmol/L (3.5-5.1); WBC 18.2 10x3/uL (4.8-10.8)
--- NOTE | 2018-12-16 07:25 | NUR ---
PATIENT ADMITTED FOR COPD EXAC. RESTING IN BED WITH HOB ELEVATED. 02 3L NC, AT SIDE. NO NEEDS VOICED AT THIS TIME
[2018-12-16 09:19] VITALS: BP 128/56
--- NOTE | 2018-12-16 14:48 | MORECARE ---
CASE MANAGEMENT DISCHARGE SUMMARY PATIENT: YANET MALIK UNIT: [id number] ADM DATE: 12/14/18 AGE: 78 : 41 SEX: F ROOM/BED: D.2103 AUTHOR: LEONARD,DOC PHYSICIAN: REFERRING PHYSICIAN: RODOLFO RAMIRES MD DATE OF SERVICE: 12/16/18 Discharge Plan Patient Name: YANET MALIK Facility: [facility]:[place] : 1940 Planned Disposition: Home with Home Health Anticipated Discharge Date: Discharge Date: Expected LOS: Initial Reviewer: [email or web address] Initial Review Date: 12/14/2018 Generated: 12/16/18 3:48 pm Comments DCP- Discharge Planning Updated by [id number]: Wolf Lemus on 12/16/18 1:[address] Patient Name: YANET MALIK Encounter No: [id number] : 1940 Primary Insurance: MEDICARE A & B Anticipated DC Date: Planned Disposition: Home with Home Health External Planned Provider: [facility] DCP follow-up note: CM RECEIVED OXYGEN TESTING, PT WAS 81% ON ROOM AIR AT REST, RECOVERY TO 94% ON 2 LITERS NASAL CANNULA. PER [facility], THE DOCTOR WILL ALSO HAVE TO NOTE THAT "THE PATIENT IS IN CHRONIC AND STABLE STATE" PRIOR TO DISCHARGE FOR [facility] TO ARRANGE ANY PORTABLE OXYGEN. PT WILL REQUIRE OXYGEN TESTING WITHIN 48 HOURS OF DISCHARGE AND CM WILL ARRANGE IF PT QUALIFIES PRIOR TO DISCHARGE HOME. FOR DISCHARGE, NOTIFY [facility] AT [phone]; FAX DISCHARGE INFORMATION TO [place] AT [phone]. Wolf Lemus, CASE MANAGEMENT DCP- Discharge Planning Updated by [id number]: Wolf Lemus on 12/15/18 3:[address] Patient Name: YANET MALIK Encounter No: [id number] : 1940 Primary Insurance: MEDICARE A & B Anticipated DC Date: Planned Disposition: Home with Home Health External Planned Provider: [facility] DCP follow-up note: CM REVIEWED CHART, PT HAS DOCTORS NOT INDICATING PT MAY NEED PORTABLE OXYGEN FOR DISCHARGE HOME. CM MET WITH PT AND SPOUSE IN ROOM TO DISCUSS DISCHARGE NEEDS. PT REPORTS HAVING HOME OXYGEN AND LARGE TANK ON WHEELS IN CASE ELECTRICITY GOES OUT. THEY DO NOT HAVE PORTABLE BOTTLES OR PORTABLE CONCENTRATOR AT HOME. PT REPORTS THAT DR. KNAPP TESTED HER ALREADY AND SHE HAS NOT YET GOTTEN PORTABLE OXYGEN. PT REPORTS PLAN TO RETURN HOME WITH [facility] RESUMPTION. PROVIDER LISTING PROVIDED, PT SIGNED CHOICE FOR [facility]. IMPORTANT MESSAGE FROM MEDICARE PROVIDED AND EXPLAINED. CM REVIEWED CHART, ORDER ENTERED FOR HOME OXYGEN TESTING TO DETERMINE IF PT WILL QUALIFY FOR PORTABLE OXYGEN PER MEDICARE STANDARDS. CM CALLED [facility], PT'S OXYGEN PROVIDER, WAS ADVISED BY DANA THAT IF PT QUALIFIES FOR OXYGEN, THE DOCTOR WILL ALSO HAVE TO NOTE THAT "THE PATIENT IS IN CHRONIC AND STABLE STATE" PRIOR TO DISCHARGE FOR [facility] TO ARRANGE ANY PORTABLE OXYGEN. CM FAXED HOSPITAL UPDATE TO [facility], . CM CONTINUES TO WAIT PORTABLE OXYGEN TESTING AND WILL ARRANGE IF PT QUALIFIES PRIOR TO DISCHARGE HOME. FOR DISCHARGE, NOTIFY [facility] AT [phone]; FAX DISCHARGE INFORMATION TO [place] AT [phone]. Wolf Lemus, CASE MANAGEMENT DCP- Discharge Planning Updated by [id number]: Petrona Mike on 12/14/18 3:[address] CM met with patient and spouse, Sammy @bedside to discuss dc plans/needs. Patient is alert but not oriented (dx of Parkinson's. Spouse gives permission to speak with family members in room. PCP: Dr. Knapp. Pharmacy: [facility]. Emergency contact: Sammy Malik (spouse) [phone], Samaar Hinds (dtr) [phone]. DME: ([facility]) Shower chair, RW, BSC, O2, nebulizer, portable O2, E-tank. Family states patient is partially dependent in her care at home. HHS: [facility] is current, [facility] with tech assist for ADL's. Patient will require portable O2 for transportation home. Family will drive her home. Spouse denies that patient has been hospitalization within the past 30 days. DCPIA - Discharge Planning Initial Assessment Updated by [id number]: Petrona Mike on 12/14/18 4:12 pm * Is the patient Alert and Oriented? No * How many steps to enter\\exit or inside your home? * PCP Dr. Knapp * Pharmacy [facility] * Preadmission Environment Home with Family * ADLs Partial Dependent * Partial ADLs (Assistance needed) Bathing Dressing Medication Management * Equipment Bedside Commode Nebulizer Oxygen Rolling Walker Shower Chair * Other Equipment Portable O2, E-tank DME: [facility] * List name and contact numbers for known caregivers / representatives who currently or will assist patient after discharge: Sammy Malik (c) [phone] (spouse) Samara Hinds #[phone] (dtr) * Verbal permission to speak to the caregivers and representatives has been obtained from the patient. Yes * Community resources currently utilized Home Health Private Duty Care * Please name any agencies selected above. [facility] (tech) for ADL's * Additional services required to return to the preadmission environment? Yes * Can the patient safely return to the preadmission environment? Yes * Has this patient been hospitalized within the prior 30 days at any hospital? No External Providers External Provider: [facility] Next Contact Date: 12/16/2018 Service Request Date: Service Type: Resolution: Reviewer: Comments: Coverage Notice Reviewer: [id number] Lemus Notice Issued Date-Time: 12/15/2018 10:40 Notice Type: Patient Choice Letter Notice Delivered To: Patient Relationship to Patient: Draw Hand Name: Delivery Method: HAND - Hand Delivered Leyda Days: Prior Verbal Notification: Recipient Understood Notice: Yes Recipient Signature: Yes Med Rec Note Co-signed by Attending: Coverage Notice Comment: [facility] RESUMPTION Reviewer: [id number] Lemus Notice Issued Date-Time: 12/15/2018 10:40 Notice Type: IM Discharge Notice Notice Delivered To: Patient Relationship to Patient: Draw Hand Name: Delivery Method: HAND - Hand Delivered Leyda Days: Prior Verbal Notification: Recipient Understood Notice: Yes Recipient Signature: Yes Med Rec Note Co-signed by Attending: Coverage Notice Comment: Last DP export: 12/15/18 3:36 p Patient Name: YANET MALIK Page [id number] at 1448 All edits/amendments must be made on the electronic document DICTATION DATE: 12/16/181 BOOM STICK WORKER: BLESSING 12/16/184 RPT#: [id number] DC DATE: STATUS: ADM IN [facility] [address] [place] [address] END OF REPORT
--- NOTE | 2018-12-16 15:19 | NUR ---
OT NOTE: PT PERFORMED VERY WELL TODAY. BED MOB WITH MIN ASSIST; TRANSFERS WITH MIN ASSIST WITH USE OF RW; AMB WITH RW X 200 FT WITH MIN ASSIST, RW, GAIT BELT, 02, AND IV. PT TOLERATED WELL. MIN ASSIST TO SAVANNA GOWN AND MOD ASSIST FOR ADJUSTING SOCKS. TOILETING WITH MIN ASSIST. JON CARREON, OTR/L
[2018-12-16 15:28] VITALS: BP 148/46
[2018-12-16 19:44] VITALS: BP 165/63
[2018-12-16 20:00] VITALS: BP 133/59
--- NOTE | 2018-12-16 20:15 | NUR ---
RESUMING PT CARE. PT ALERT LAYING IN BED. FAMILY AT BEDSIDE. NO C/O VOICED. NO S/S OF DISTRESS NOTED. PT HAS A IV RIGHT FOREARM AND IS ON 3 LITERS OF OXYGEN. BED IN LOW POSITION WITH CALL LIGHT IN REACH. WILL CONTINUE TO MONITOR PT AND FOLLOW PLAN OF CARE.
[2018-12-17 03:43] LABS: BASOPHILS 0.1 % (0-2); EOSINOPHILS 0 % (0-7); HEMATOCRIT 33.2 % (36.0-48.0); HEMOGLOBIN 10.6 g/dL (12-16); IMMATURE GRANULOCYTES 0.6 % (0-5); LYMPHOCYTES 6.7 % (15-50); MCH 29.2 pg (26.0-34.0); MCHC 31.9 g/dL (31.0-37.0); MCV 91.5 fL (80.0-100.0); MONOCYTES 6.3 % (2-11); NEUTROPHILS 86.3 % (40-80); PLATELET COUNT 275 10x3/uL (130-400); RBC 3.63 10x6/uL (4.00-5.40); RDW 16.7 % (11.5-14.5)
[2018-12-17 03:57] LABS: ALBUMIN 3.2 g/dL (3.4-5.0); ANION GAP 8.5 mmol/L (8-16); BILIRUBIN - TOTAL 0.36 mg/dL (0.2-1.3); CALCIUM 9.2 mg/dL (8.5-10.1); CARBON DIOXIDE 34.9 mmol/L (21.0-32.0); CREATININE - SERUM 1.1 mg/dL (0.6-1.3); POTASSIUM - SERUM 3.4 mmol/L (3.5-5.1); PROTEIN - SERUM 6.6 g/dL (6.4-8.2)
[2018-12-17 04:00] VITALS: BP 157/56
--- NOTE | 2018-12-17 04:13 | NUR ---
I have reviewed this patient and I concur with the Shift Assessment completed by the Licensed Practical Nurse today this shift.
--- NOTE | 2018-12-17 04:46 | NUR ---
PT LAYING IN BED RESTING COMFORTABLY WITH EYES CLOSED. NO S/S OF DISTRESS NOTED AT THIS TIME. RESPIRATIONS EVEN AND UNLABORED. BED IN LOW POSITION WITH CALL LIGHT IN REACH. WILL CONTINUE TO MONITOR PT AND FOLLOW PLAN OF CARE.
--- NOTE | 2018-12-17 07:30 | NUR ---
A/A/OX4. DENIES ANY PAIN OR DISCOMFORT AND NO REQUESTS VOICED. IV RIGHT FOREARM INFILTRATED, DC'D AND RESTARTED RIGHT UPPER ARM X 1 ATTEMPT WITH 20 GAUGE. TIP OF REMOVED CATH INTACT. HAS 2 SMALL SKIN TEARS ON LEFT FOREARM AND STATES SHE DOESN'T KNOW HOW SHE GOT THEM. BED LOCKED IN LOW POSITION WITH SIDERAILS UP X 2 AND CALL LIGHT IN REACH. WILL CONTINUE POC.
--- NOTE | 2018-12-17 10:38 | NUR ---
AHA diet ordered with 83% average po intake Reviewed labs Pt reports good appetite and no nutritional requests Pt has not had nausea Pt reports no questions about heart healthy diet Pt reports she likes salt and encouraged pt to stick with a low salt diet Weight 250lb-no new weight Pt reports she has not noticed any weight gain or loss RD following
--- NOTE | 2018-12-17 13:47 | NUR ---
OT NOTE: PERFORMED BED MOB WITH VERY MINIMAL ASSIST FOR SUPINE TO SIT AND SIT TO SUPINE. SIT TO STAND WITH CGA; TRANSFERS TO TOILET WITH CGA. PT STATED THAT HER DTR WAS GOING TO GIVE HER A SHOWER, BUT SHE WAS AGREEABLE TO AMBULATE INTO HALLWAY. AMB APPROX 200 FT WITH WALKER WITH CGA, GAIT BELT, AND 02. IN ROOM AMBULATION WITH CGA, HOWEVER, INCREASED DIFFICULTY IN ROOM DUE TO LIMITED SPACE. PT WAS NOT SOB UPON RETURN TO ROOM. JON CARREON, OTR/L
--- NOTE | 2018-12-17 15:15 | NUR ---
I have reviewed this patient and I concur with the Shift Assessment completed by the Licensed Practical Nurse today this shift.
[2018-12-17 17:26] VITALS: BP 181/59
[2018-12-17 17:36] VITALS: BP 156/54
--- NOTE | 2018-12-17 19:05 | NUR ---
ALERT/AWAKE ORIENTED X4. DENIES PAIN OR ANY NEEDS. RR 18 EVEN U/L ON 02 AT 3L/NC. IV IN RT UA INTACT SL. MULTIPLE BRUSIES ON BOTH ARMS NOTED. HER SON IS PRESENT IN ROOM.
--- NOTE | 2018-12-17 20:10 | NUR ---
ADMIN SCHED MEDS AND NASAL SPRAY. NO OTHER NEEDS OR DISCOMFORTS VOICED.
[2018-12-17 21:17] VITALS: BP 156/53
--- NOTE | 2018-12-17 23:15 | NUR ---
ASSISTED TO BSC TO VOID AND BACK TO BED. SOME WEAKNESS NOTED.
[2018-12-18 01:04] VITALS: BP 178/72
[2018-12-18 03:55] VITALS: BP 151/70
[2018-12-18 04:32] LABS: BASOPHILS 0.1 % (0-2); EOSINOPHILS 0 % (0-7); HEMATOCRIT 35.7 % (36.0-48.0); HEMOGLOBIN 11.3 g/dL (12-16); IMMATURE GRANULOCYTES 0.9 % (0-5); MCHC 31.7 g/dL (31.0-37.0); MCV 91.8 fL (80.0-100.0); MEAN PLATELET VOLUME 11.4 fL (7.4-10.4); MONOCYTES 3.6 % (2-11); NEUTROPHILS 91.4 % (40-80); PLATELET COUNT 303 10x3/uL (130-400); RBC 3.89 10x6/uL (4.00-5.40); RDW 16.8 % (11.5-14.5); WBC 18.9 10x3/uL (4.8-10.8)
--- NOTE | 2018-12-18 05:00 | NUR ---
RESTING QUIETLY WITH EYES CLOSED. BIPAP MASK ON. NO S/S OF DISCOMFORT. FAMILY MEMBER SLEEPING IN RECLINER.
[2018-12-18 05:03] LABS: ALBUMIN 3.4 g/dL (3.4-5.0); ANION GAP 11.6 mmol/L (8-16); BILIRUBIN - TOTAL 0.32 mg/dL (0.2-1.3); CALCIUM 8.8 mg/dL (8.5-10.1); CARBON DIOXIDE 30.5 mmol/L (21.0-32.0); CREATININE - SERUM 1.1 mg/dL (0.6-1.3); POTASSIUM - SERUM 4.1 mmol/L (3.5-5.1); PROTEIN - SERUM 6.7 g/dL (6.4-8.2)
[2018-12-18 07:56] VITALS: BP 171/55
--- NOTE | 2018-12-18 08:31 | NUR ---
AM MEDS GIVEN AT THIS TIME. PT A/O X4, RESP EVEN AND NONLABORED AT THIS TIME ON 2L NC. RIGHT UPPER ARM IV SL. IV SITE LOOKS RED AND FEELS HARD, WILL D/C IV AND START NEW IV. PT DENIES ANY NEEDS AT THIS TIME. CALL LIGHT IN REACH, AT BEDSIDE, NAD NOTED,W ILL CONTINUE TO MONITOR.
--- NOTE | 2018-12-18 09:52 | NUR ---
D/C RIGHT UPPER IV WITH CATHETER TIP INTACT. SON DOES NOT WANT PT TO GET ANOTHER IV UNTIL THEY HERE IF PT IS GOING HOME TODAY OR NOT. WILL WAIT UNTIL DR. CRANE TO SEE IF PT IS BEING D/C TODAY. PT UP TO SIDE OF BED, DENIES ANY NEEDS AT THIS TIME. CALL LIGHT IN REACH, NAD NOTED,W ILL CONTINUE TO MONITOR.
[2018-12-18 13:35] VITALS: BP 167/59
[2018-12-18] MEDS ORDERED: PREDNISONE10 MG PO (15:35)
--- NOTE | 2018-12-18 17:00 | NUR ---
CALLED DR. BULLOCK AND ASKED HER IF SHE WANTED TO CONTINUE THE DOXY. ARA STATED YES CONTINUE FOR TOTAL OF 4 DOSES SINCE PT HAD 6 DOSES ALREADY.
[2018-12-18] MEDS ORDERED: MONODOX100 MG PO (17:03)
--- NOTE | 2018-12-18 17:08 | NUR ---
RX FOR DOXYCYCLINE 100MG BID X 2 DAYS CALLED TO -[facility]. SPOKE TO [place].
--- NOTE | 2018-12-18 17:15 | NUR ---
PROVIDED VERBAL AND WRITTEN DISCHARGE TEACHING TO PT AND FAMILY, ALL VERBALIZED UNDERSTANDING REGARDING TEACHING. PT LEFT UNIT VIA WHEELCHAIR, WITH ALL BELONGINGS, ACCOMPANIED BY , NAD NOTED.
--- NOTE | 2018-12-18 21:00 | MORECARE ---
CASE MANAGEMENT DISCHARGE SUMMARY PATIENT: YANET MALIK UNIT: [id number] ADM DATE: 12/14/18 AGE: 78 : 41 SEX: F ROOM/BED: D.2103 AUTHOR: LEONARD,DOC PHYSICIAN: REFERRING PHYSICIAN: RODOLFO RAMIRES MD DATE OF SERVICE: 12/18/18 Discharge Plan Patient Name: YANET MALIK Facility: [facility]:[place] : 1940 Planned Disposition: Home with Home Health Anticipated Discharge Date: Discharge Date: 12/18/2018 Expected LOS: Initial Reviewer: [id number] Initial Review Date: 12/14/2018 Generated: 12/18/18 10:00 pm Comments DCP- Discharge Planning Updated by [id number]: Wolf Lemus on 12/16/18 1:[address] Patient Name: YANET MALIK Encounter No: [id number] : 1940 Primary Insurance: MEDICARE A & B Anticipated DC Date: Planned Disposition: Home with Home Health External Planned Provider: [facility] DCP follow-up note: CM RECEIVED OXYGEN TESTING, PT WAS 81% ON ROOM AIR AT REST, RECOVERY TO 94% ON 2 LITERS NASAL CANNULA. PER [facility], THE DOCTOR WILL ALSO HAVE TO NOTE THAT "THE PATIENT IS IN CHRONIC AND STABLE STATE" PRIOR TO DISCHARGE FOR [facility] TO ARRANGE ANY PORTABLE OXYGEN. PT WILL REQUIRE OXYGEN TESTING WITHIN 48 HOURS OF DISCHARGE AND CM WILL ARRANGE IF PT QUALIFIES PRIOR TO DISCHARGE HOME. FOR DISCHARGE, NOTIFY [facility] AT [phone]; FAX DISCHARGE INFORMATION TO [facility] AT [phone]. Wolf Lemus, CASE MANAGEMENT DCP- Discharge Planning Updated by [id number]: Wolf Lemus on 12/15/18 3:[address] Patient Name: YANET MALIK Encounter No: [id number] : 1940 Primary Insurance: MEDICARE A & B Anticipated DC Date: Planned Disposition: Home with Home Health External Planned Provider: [facility] DCP follow-up note: CM REVIEWED CHART, PT HAS DOCTORS NOT INDICATING PT MAY NEED PORTABLE OXYGEN FOR DISCHARGE HOME. CM MET WITH PT AND SPOUSE IN ROOM TO DISCUSS DISCHARGE NEEDS. PT REPORTS HAVING HOME OXYGEN AND LARGE TANK ON WHEELS IN CASE ELECTRICITY GOES OUT. THEY DO NOT HAVE PORTABLE BOTTLES OR PORTABLE CONCENTRATOR AT HOME. PT REPORTS THAT DR. KNAPP TESTED HER ALREADY AND SHE HAS NOT YET GOTTEN PORTABLE OXYGEN. PT REPORTS PLAN TO RETURN HOME WITH [facility] RESUMPTION. PROVIDER LISTING PROVIDED, PT SIGNED CHOICE FOR [facility]. IMPORTANT MESSAGE FROM MEDICARE PROVIDED AND EXPLAINED. CM REVIEWED CHART, ORDER ENTERED FOR HOME OXYGEN TESTING TO DETERMINE IF PT WILL QUALIFY FOR PORTABLE OXYGEN PER MEDICARE STANDARDS. CM CALLED [facility], PT'S OXYGEN PROVIDER, WAS ADVISED BY DANA THAT IF PT QUALIFIES FOR OXYGEN, THE DOCTOR WILL ALSO HAVE TO NOTE THAT "THE PATIENT IS IN CHRONIC AND STABLE STATE" PRIOR TO DISCHARGE FOR [facility] TO ARRANGE ANY PORTABLE OXYGEN. CM FAXED HOSPITAL UPDATE TO [facility], . CM CONTINUES TO WAIT PORTABLE OXYGEN TESTING AND WILL ARRANGE IF PT QUALIFIES PRIOR TO DISCHARGE HOME. FOR DISCHARGE, NOTIFY [facility] AT [phone]; FAX DISCHARGE INFORMATION TO [facility] AT [phone]. Wolf Lemus, CASE MANAGEMENT DCP- Discharge Planning Updated by [id number]: Petrona Mike on 12/14/18 3:[address] CM met with patient and spouse, Sammy @bedside to discuss dc plans/needs. Patient is alert but not oriented (dx of Parkinson's. Spouse gives permission to speak with family members in room. PCP: Dr. Knapp. [email or web address] Emergency contact: Sammy Malik (spouse) [phone], Samara Hinds (dtr) [phone]. DME: ([facility]) Shower chair, RW, BSC, O2, nebulizer, portable O2, E-tank. Family states patient is partially dependent in her care at home. HHS: [facility] is current, [facility] with tech assist for ADL's. Patient will require portable O2 for transportation home. Family will drive her home. Spouse denies that patient has been hospitalization within the past 30 days. DCPIA - Discharge Planning Initial Assessment Updated by [id number]: Petrona Mike on 12/14/18 4:12 pm * Is the patient Alert and Oriented? No * How many steps to enter\\exit or inside your home? * PCP Dr. Knapp * Pharmacy [facility] * Preadmission Environment Home with Family * ADLs Partial Dependent * Partial ADLs (Assistance needed) Bathing Dressing Medication Management * Equipment Bedside Commode Nebulizer Oxygen Rolling Walker Shower Chair * Other Equipment Portable O2, E-tank DME: [facility] * List name and contact numbers for known caregivers / representatives who currently or will assist patient after discharge: Sammy Malik (c) [phone] (spouse) Samara Hinds #[phone] (dtr) * Verbal permission to speak to the caregivers and representatives has been obtained from the patient. Yes * Community resources currently utilized Home Health Private Duty Care * Please name any agencies selected above. [facility] (tech) for ADL's * Additional services required to return to the preadmission environment? Yes * Can the patient safely return to the preadmission environment? Yes * Has this patient been hospitalized within the prior 30 days at any hospital? No Coverage Notice Reviewer: SANJAY Lemus Notice Issued Date-Time: 12/15/2018 10:40 Notice Type: Patient Choice Letter Notice Delivered To: Patient Relationship to Patient: Production Supervisor Trainee Name: Delivery Method: HAND - Hand Delivered Leyda Days: Prior Verbal Notification: Recipient Understood Notice: Yes Recipient Signature: Yes Med Rec Note Co-signed by Attending: Coverage Notice Comment: [facility] Reviewer: SANJAY Lemus Notice Issued Date-Time: 12/15/2018 10:40 Notice Type: IM Discharge Notice Notice Delivered To: Patient Relationship to Patient: Production Supervisor Trainee Name: Delivery Method: HAND - Hand Delivered Leyda Days: Prior Verbal Notification: Recipient Understood Notice: Yes Recipient Signature: Yes Med Rec Note Co-signed by Attending: Coverage Notice Comment: Last DP export: 12/16/18 1:48 p Patient Name: YANET MALIK Page 53593 at 2100 All edits/amendments must be made on the electronic document DICTATION DATE: 12/18/182099 BRICK PICKER: BLESSING 12/18/182099 RPT#: [id number] DC DATE:12/18/18 STATUS: DIS IN [facility] [address] [place] [address] END OF REPORT
--- NOTE | 2018-12-18 21:07 | MORECARE ---
CASE MANAGEMENT DISCHARGE SUMMARY PATIENT: YANET MALIK UNIT: [id number] ADM DATE: 12/14/18 AGE: 78 : 41 SEX: F ROOM/BED: D.2108 AUTHOR: LEONARD,DOC PHYSICIAN: REFERRING PHYSICIAN: RODOLFO RAMIRES MD DATE OF SERVICE: 12/18/18 Discharge Plan Patient Name: YANET MALIK Facility: [facility]:[place] : 1940 Planned Disposition: Home with Home Health Anticipated Discharge Date: Discharge Date: 12/18/2018 Expected LOS: Initial Reviewer: [id number] Initial Review Date: 12/14/2018 Generated: 12/18/18 10:07 pm Comments DCP- Discharge Planning Updated by [email or web address]: Jacquelyn Morelos on 12/18/18 8:[address] LATE ENTRY 1715 PATIENT ANXIOUS FOR DISCHARGE TO HOME. AT THE BEDSIDE TO PROVIDE TRANSPORTATION. PATIENT APPARENTLY HAD PORTABLE OXYGEN DELIVERED TO HER ROOM THURSDAY. SHE WILL F/U WITH PULMONARY TO ARRANGE FOR OUTPATIENT SLEEP STUDY FOR BIPAP. DISCUSSED ANTIBIOTIC ORDER WITH PRIMARY NURSE, KIZZY. SHE SPOKE WITH DR BULLOCK ATTEMPTED TO NOTIFY [facility] OF DISCHARGE FOR RESUMPTION OF CARE. TC X5. NO ANSWER BY SERVICE. FAXED DISCHARGE SUMMARY, D/C ORDERS AND MED LIST THIS LATE PM. WILL ATTEMPT TO REACH BY PHONE AGAIN IN AM. DCP- Discharge Planning Updated by [id number]: Wolf Lemus on 12/16/18 1:[address] Patient Name: YANET MALIK Encounter No: [id number] : 1940 Primary Insurance: MEDICARE A & B Anticipated DC Date: Planned Disposition: Home with Home Health External Planned Provider: [facility] DCP follow-up note: CM RECEIVED OXYGEN TESTING, PT WAS 81% ON ROOM AIR AT REST, RECOVERY TO 94% ON 2 LITERS NASAL CANNULA. PER [facility], THE DOCTOR WILL ALSO HAVE TO NOTE THAT "THE PATIENT IS IN CHRONIC AND STABLE STATE" PRIOR TO DISCHARGE FOR [facility] TO ARRANGE ANY PORTABLE OXYGEN. PT WILL REQUIRE OXYGEN TESTING WITHIN 48 HOURS OF DISCHARGE AND CM WILL ARRANGE IF PT QUALIFIES PRIOR TO DISCHARGE HOME. FOR DISCHARGE, NOTIFY [facility] AT [phone]; FAX DISCHARGE INFORMATION TO [facility] AT [phone]. Wolf Lemus CASE MANAGEMENT DCP- Discharge Planning Updated by [id number]: Wolf Lemus on 12/15/18 3:[address] Patient Name: YANET MALIK Encounter No: [id number] : 1940 Primary Insurance: MEDICARE A & B Anticipated DC Date: Planned Disposition: Home with Home Health External Planned Provider: [facility] DCP follow-up note: CM REVIEWED CHART, PT HAS DOCTORS NOT INDICATING PT MAY NEED PORTABLE OXYGEN FOR DISCHARGE HOME. CM MET WITH PT AND SPOUSE IN ROOM TO DISCUSS DISCHARGE NEEDS. PT REPORTS HAVING HOME OXYGEN AND LARGE TANK ON WHEELS IN CASE ELECTRICITY GOES OUT. THEY DO NOT HAVE PORTABLE BOTTLES OR PORTABLE CONCENTRATOR AT HOME. PT REPORTS THAT DR. KNAPP TESTED HER ALREADY AND SHE HAS NOT YET GOTTEN PORTABLE OXYGEN. PT REPORTS PLAN TO RETURN HOME WITH [facility] RESUMPTION. PROVIDER LISTING PROVIDED, PT SIGNED CHOICE FOR [facility]. IMPORTANT MESSAGE FROM MEDICARE PROVIDED AND EXPLAINED. CM REVIEWED CHART, ORDER ENTERED FOR HOME OXYGEN TESTING TO DETERMINE IF PT WILL QUALIFY FOR PORTABLE OXYGEN PER MEDICARE STANDARDS. CM CALLED [facility], PT'S OXYGEN PROVIDER, WAS ADVISED BY DANA THAT IF PT QUALIFIES FOR OXYGEN, THE DOCTOR WILL ALSO HAVE TO NOTE THAT "THE PATIENT IS IN CHRONIC AND STABLE STATE" PRIOR TO DISCHARGE FOR [facility] TO ARRANGE ANY PORTABLE OXYGEN. CM FAXED HOSPITAL UPDATE TO [facility], . CONTINUES TO WAIT PORTABLE OXYGEN TESTING AND WILL ARRANGE IF PT QUALIFIES PRIOR TO DISCHARGE HOME. FOR DISCHARGE, NOTIFY [facility] AT [phone]; FAX DISCHARGE INFORMATION TO [facility] AT [phone]. Wolf Lemus, CASE MANAGEMENT DCP- Discharge Planning Updated by [id number]: Petrona Mike on 12/14/18 3:[address] CM met with patient and spouse, Sammy @bedside to discuss dc plans/needs. Patient is alert but not oriented (dx of Parkinson's. Spouse gives permission to speak with family members in room. PCP: Dr. Knapp. Pharmacy: [facility]. Emergency contact: Sammysondra Malik (spouse) [phone], Samara Hinds (dtr) [phone]. DME: ([facility]) Shower chair, RW, BSC, O2, nebulizer, portable O2, E-tank. Family states patient is partially dependent in her care at home. [facility]HS: [facility] is current, [facility] with tech assist for ADL's. Patient will require portable O2 for transportation home. Family will drive her home. Spouse denies that patient has been hospitalization within the past 30 days. DCPIA - Discharge Planning Initial Assessment Updated by [id number]: Petrona Mike on 12/14/18 4:12 pm * Is the patient Alert and Oriented? No * How many steps to enter\\exit or inside your home? * PCP Dr. Knapp * Pharmacy [facility] [place] * Preadmission Environment Home with Family * ADLs Partial Dependent * Partial ADLs (Assistance needed) Bathing Dressing Medication Management * Equipment Bedside Commode Nebulizer Oxygen Rolling Walker Shower Chair * Other Equipment Portable O2, E-tank DME: [facility] * List name and contact numbers for known caregivers / representatives who currently or will assist patient after discharge: Sammy Malik (c) [phone] (spouse) Samara Hinds #[phone] (dtr) * Verbal permission to speak to the caregivers and representatives has been obtained from the patient. Yes * Community resources currently utilized Home Health Private Duty Care * Please name any agencies selected above. [facility] (tech) for ADL's * Additional services required to return to the preadmission environment? Yes * Can the patient safely return to the preadmission environment? Yes * Has this patient been hospitalized within the prior 30 days at any hospital? No Coverage Notice Reviewer: [id number] Lemus Notice Issued Date-Time: 12/15/2018 10:40 Notice Type: Patient Choice Letter Notice Delivered To: Patient Relationship to Patient: Sagger Filler Name: Delivery Method: HAND - Hand Delivered Leyda Days: Prior Verbal Notification: Recipient Understood Notice: Yes Recipient Signature: Yes Med Rec Note Co-signed by Attending: Coverage Notice Comment: [facility] RESUMPTION Reviewer: [id number] Lemus Notice Issued Date-Time: 12/15/2018 10:40 Notice Type: IM Discharge Notice Notice Delivered To: Patient Relationship to Patient: Sagger Filler Name: Delivery Method: HAND - Hand Delivered Leyda Days: Prior Verbal Notification: Recipient Understood Notice: Yes Recipient Signature: Yes Med Rec Note Co-signed by Attending: Coverage Notice Comment: Reviewer: [id number] Crista Morelos Notice Issued Date-Time: 12/18/2018 15:32 Notice Type: IM Discharge Notice Notice Delivered To: Patient Relationship to Patient: Self Sagger Filler Name: Delivery Method: - Leyda Days: Prior Verbal Notification: Recipient Understood Notice: Recipient Signature: Med Rec Note Co-signed by Attending: Coverage Notice Comment: Last DP export: 12/18/18 8:00 p Patient Name: YANET MALIK Page 49991 at 2107 All edits/amendments must be made on the electronic document DICTATION DATE: 12/18/182105 SENIOR CATEGORY MANAGER: BLESSING 12/18/182105 RPT#: [id number] DC DATE:12/18/18 STATUS: DIS IN [facility] [address] [place] [address] END OF REPORT
--- NOTE | 2018-12-19 16:45 | MORECARE ---
CASE MANAGEMENT DISCHARGE SUMMARY PATIENT: YANET MALIK UNIT: [id number] ADM DATE: 12/14/18 AGE: 78 : 41 SEX: F ROOM/BED: D.2103 AUTHOR: LEONARD,DOC PHYSICIAN: REFERRING PHYSICIAN: RODOLFO RAMIRES MD DATE OF SERVICE: 12/19/18 Discharge Plan Patient Name: YANET MALIK Facility: [facility]:[place] : 1940 Planned Disposition: Home with Home Health Anticipated Discharge Date: 12/18/18 Discharge Date: 12/18/2018 Expected LOS: 4 Initial Reviewer: [id number] Initial Review Date: 12/14/2018 Generated: 12/19/18 5:45 pm Comments DCP- Discharge Planning Updated by [id number]: Jacquelyn Morelos on 12/18/18 8:[address] LATE ENTRY 1715 PATIENT ANXIOUS FOR DISCHARGE TO HOME. AT THE BEDSIDE TO PROVIDE TRANSPORTATION. PATIENT APPARENTLY HAD PORTABLE OXYGEN DELIVERED TO HER ROOM THURSDAY. SHE WILL F/U WITH PULMONARY TO ARRANGE FOR OUTPATIENT SLEEP STUDY FOR BIPAP. DISCUSSED ANTIBIOTIC ORDER WITH PRIMARY NURSE, KIZZY. SHE SPOKE WITH DR BULLOCK ATTEMPTED TO NOTIFY [facility] OF DISCHARGE FOR RESUMPTION OF CARE. TC X5. NO ANSWER BY SERVICE. FAXED DISCHARGE SUMMARY, D/C ORDERS AND MED LIST THIS LATE PM. WILL ATTEMPT TO REACH BY PHONE AGAIN IN AM. DCP- Discharge Planning Updated by [id number]: Wolf Lemus on 12/16/18 1:[address] Patient Name: YANET MALIK Encounter No: [id number] : 1940 Primary Insurance: MEDICARE A & B Anticipated DC Date: Planned Disposition: Home with Home Health External Planned Provider: [facility] DCP follow-up note: CM RECEIVED OXYGEN TESTING, PT WAS 81% ON ROOM AIR AT REST, RECOVERY TO 94% ON 2 LITERS NASAL CANNULA. PER [facility], THE DOCTOR WILL ALSO HAVE TO NOTE THAT "THE PATIENT IS IN CHRONIC AND STABLE STATE" PRIOR TO DISCHARGE FOR [facility] TO ARRANGE ANY PORTABLE OXYGEN. PT WILL REQUIRE OXYGEN TESTING WITHIN 48 HOURS OF DISCHARGE AND CM WILL ARRANGE IF PT QUALIFIES PRIOR TO DISCHARGE HOME. FOR DISCHARGE, NOTIFY [facility] AT [phone]; FAX DISCHARGE INFORMATION TO [facility] AT [phone]. Wolf Lemus CASE MANAGEMENT DCP- Discharge Planning Updated by [id number]: Wolf Lemus on 12/15/18 3:[address] Patient Name: YANET MALIK Encounter No: [id number] : 1940 Primary Insurance: MEDICARE A & B Anticipated DC Date: Planned Disposition: Home with Home Health External Planned Provider: [facility] DCP follow-up note: CM REVIEWED CHART, PT HAS DOCTORS NOT INDICATING PT MAY NEED PORTABLE OXYGEN FOR DISCHARGE HOME. CM MET WITH PT AND SPOUSE IN ROOM TO DISCUSS DISCHARGE NEEDS. PT REPORTS HAVING HOME OXYGEN AND LARGE TANK ON WHEELS IN CASE ELECTRICITY GOES OUT. THEY DO NOT HAVE PORTABLE BOTTLES OR PORTABLE CONCENTRATOR AT HOME. PT REPORTS THAT DR. KNAPP TESTED HER ALREADY AND SHE HAS NOT YET GOTTEN PORTABLE OXYGEN. PT REPORTS PLAN TO RETURN HOME WITH [facility] RESUMPTION. PROVIDER LISTING PROVIDED, PT SIGNED CHOICE FOR [facility]. IMPORTANT MESSAGE FROM [employer] PROVIDED AND EXPLAINED. CM REVIEWED CHART, ORDER ENTERED FOR HOME OXYGEN TESTING TO DETERMINE IF PT WILL QUALIFY FOR PORTABLE OXYGEN PER MEDICARE STANDARDS. CM CALLED [facility], PT'S OXYGEN PROVIDER, WAS ADVISED BY DANA THAT IF PT QUALIFIES FOR OXYGEN, THE DOCTOR WILL ALSO HAVE TO NOTE THAT "THE PATIENT IS IN CHRONIC AND STABLE STATE" PRIOR TO DISCHARGE FOR [facility] TO ARRANGE ANY PORTABLE OXYGEN. CM FAXED HOSPITAL UPDATE TO [facility], . CM CONTINUES TO WAIT PORTABLE OXYGEN TESTING AND WILL ARRANGE IF PT QUALIFIES PRIOR TO DISCHARGE HOME. FOR DISCHARGE, NOTIFY [facility] AT [phone]; FAX DISCHARGE INFORMATION TO [facility] AT [phone]. Wolf Lemus, CASE MANAGEMENT DCP- Discharge Planning Updated by [id number]: Petrona Mike on 12/14/18 3:[address] CM met with patient and spouse, Sammy @bedside to discuss dc plans/needs. Patient is alert but not oriented (dx of Parkinson's. Spouse gives permission to speak with family members in room. PCP: Dr. Knapp. [facility] Emergency contact: Sammy Tariqrbrough (spouse) [phone], Samara Hinds (dtr) [phone]. [facility] Shower chair, RW, BSC, O2, nebulizer, portable O2, E-tank. Family states patient is partially dependent in her care at home. HHS: [facility] is current, [facility] with tech assist for ADL's. Patient will require portable O2 for transportation home. Family will drive her home. Spouse denies that patient has been hospitalization within the past 30 days. DCPIA - Discharge Planning Initial Assessment Updated by [email or web address]: Petrona Mike on 12/14/18 4:12 pm * Is the patient Alert and Oriented? No * How many steps to enter\\exit or inside your home? * PCP Dr. Knapp * [facility] * Preadmission Environment Home with Family * ADLs Partial Dependent * Partial ADLs (Assistance needed) Bathing Dressing Medication Management * Equipment Bedside Commode Nebulizer Oxygen Rolling Walker Shower Chair * Other Equipment Portable O2, E-tank DME: [facility] * List name and contact numbers for known caregivers / representatives who currently or will assist patient after discharge: Sammy Malik (c) [phone] (spouse) Samara Guzman #[phone] (dtr) * Verbal permission to speak to the caregivers and representatives has been obtained from the patient. Yes * Community resources currently utilized Home Health Private Duty Care * Please name any agencies selected above. [facility] (tech) for ADL's * Additional services required to return to the preadmission environment? Yes * Can the patient safely return to the preadmission environment? Yes * Has this patient been hospitalized within the prior 30 days at any hospital? No Coverage Notice Reviewer: [id number] Lemus Notice Issued Date-Time: 12/15/2018 10:40 Notice Type: Patient Choice Letter Notice Delivered To: Patient Relationship to Patient: Equal Employment Opportunity Officer Name: Delivery Method: HAND - Hand Delivered Leyda Days: Prior Verbal Notification: Recipient Understood Notice: Yes Recipient Signature: Yes Med Rec Note Co-signed by Attending: Coverage Notice Comment: [facility] RESUMPTION Reviewer: [id number] Lemus Notice Issued Date-Time: 12/15/2018 10:40 Notice Type: IM Discharge Notice Notice Delivered To: Patient Relationship to Patient: Equal Employment Opportunity Officer Name: Delivery Method: HAND - Hand Delivered Leyda Days: Prior Verbal Notification: Recipient Understood Notice: Yes Recipient Signature: Yes Med Rec Note Co-signed by Attending: Coverage Notice Comment: Reviewer: [id number] Crista Morelos Notice Issued Date-Time: 12/18/2018 15:32 Notice Type: IM Discharge Notice Notice Delivered To: Patient Relationship to Patient: Self Equal Employment Opportunity Officer Name: Delivery Method: - Leyda Days: Prior Verbal Notification: Recipient Understood Notice: Recipient Signature: Med Rec Note Co-signed by Attending: Coverage Notice Comment: Last DP export: 12/18/18 8:07 p Patient Name: YANET MALIK Page [phone] at 1645 All edits/amendments must be made on the electronic document DICTATION DATE: 12/19/181643 EXPANDED FUNCTION DENTAL ASSISTANT: BLESSING 12/19/181643 RPT#: [id number] DC DATE:12/18/18 STATUS: DIS IN [facility] [address] [place] [address] END OF REPORT
--- NOTE | 2018-12-19 16:51 | MORECARE ---
CASE MANAGEMENT DISCHARGE SUMMARY PATIENT: YANET MALIK UNIT: [id number] ADM DATE: 12/14/18 AGE: 78 : 41 SEX: F ROOM/BED: D.2105 AUTHOR: LEONARD,DOC PHYSICIAN: REFERRING PHYSICIAN: RODOLFO RAMIRES MD DATE OF SERVICE: 12/19/18 Discharge Plan Patient Name: YANET MALIK Facility: [facility]:[place] : 1940 Planned Disposition: Home with Home Health Anticipated Discharge Date: 12/18/18 Discharge Date: 12/18/2018 Expected LOS: 4 Initial Reviewer: [id number] Initial Review Date: 12/14/2018 Generated: 12/19/18 5:51 pm Comments DCP- Discharge Planning Updated by [id number]: Jacquelyn Morelos on 12/19/18 3:[address] CM HAD BEEN UNABLE TO NOTIFY [facility] OF DISCHARGE 12/18/18. NO ANSWER TO MULTIPLE PHONE CALLS ON . TC TO [facility]. CM WAS TRANSFERED TO [employer]. ADVISED OF PHONE CONTACT DIFFICULTY W/ CALLS AND FAX. SHE WILL NOTIFY THE IT DESKTOP SUPPORT TECHNICIAN. CLINICAL UPDATE GIVEN. PATIENT IS PRESENTLY ON SERVICE. PLAN IS FOR PATIENT TO BE SEEN ON THURSDAY. CM FAXED CLINICAL DISCHARGE MED LIST AND INSTRUCTION. AWAIT CONFIRMATION. DCP- Discharge Planning Updated by [id number]: Jacquelyn Morelos on 12/18/18 8:[address] LATE ENTRY 1715 PATIENT ANXIOUS FOR DISCHARGE TO HOME. AT THE BEDSIDE TO PROVIDE TRANSPORTATION. PATIENT APPARENTLY HAD PORTABLE OXYGEN DELIVERED TO HER ROOM THURSDAY. SHE WILL F/U WITH PULMONARY TO ARRANGE FOR OUTPATIENT SLEEP STUDY FOR BIPAP. DISCUSSED ANTIBIOTIC ORDER WITH PRIMARY NURSE, KIZZY. SHE SPOKE WITH DR BULLOCK ATTEMPTED TO NOTIFY [facility] OF DISCHARGE FOR RESUMPTION OF CARE. TC X5. NO ANSWER BY SERVICE. FAXED DISCHARGE SUMMARY, D/C ORDERS AND MED LIST THIS LATE PM. WILL ATTEMPT TO REACH BY PHONE AGAIN IN AM. DCP- Discharge Planning Updated by [id number]: Wolf Lemus on 12/16/18 1:[address] Patient Name: YANET MALIK Encounter No: [id number] : 1940 Primary Insurance: MEDICARE A & B Anticipated DC Date: Planned Disposition: Home with Home Health External Planned Provider: [facility] DCP follow-up note: CM RECEIVED OXYGEN TESTING, PT WAS 81% ON ROOM AIR AT REST, RECOVERY TO 94% ON 2 LITERS NASAL CANNULA. [facility], THE DOCTOR WILL ALSO HAVE TO NOTE THAT "THE PATIENT IS IN CHRONIC AND STABLE STATE" PRIOR TO DISCHARGE FOR [facility] TO ARRANGE ANY PORTABLE OXYGEN. PT WILL REQUIRE OXYGEN TESTING WITHIN 48 HOURS OF DISCHARGE AND CM WILL ARRANGE IF PT QUALIFIES PRIOR TO DISCHARGE HOME. FOR DISCHARGE, NOTIFY [facility] AT [phone]; FAX DISCHARGE INFORMATION TO [facility] AT [phone]. Wolf Lemus, CASE MANAGEMENT DCP- Discharge Planning Updated by [id number]: Wolf Lemus on 12/15/18 3:[address] Patient Name: YANET MALIK Encounter No: [id number] : 1940 Primary Insurance: MEDICARE A & B Anticipated DC Date: Planned Disposition: Home with Home Health External Planned Provider: [facility] DCP follow-up note: CM REVIEWED CHART, PT HAS DOCTORS NOT INDICATING PT MAY NEED PORTABLE OXYGEN FOR DISCHARGE HOME. CM MET WITH PT AND SPOUSE IN ROOM TO DISCUSS DISCHARGE NEEDS. PT REPORTS HAVING HOME OXYGEN AND LARGE TANK ON WHEELS IN CASE ELECTRICITY GOES OUT. THEY DO NOT HAVE PORTABLE BOTTLES OR PORTABLE CONCENTRATOR AT HOME. PT REPORTS THAT DR. KNAPP TESTED HER ALREADY AND SHE HAS NOT YET GOTTEN PORTABLE OXYGEN. PT REPORTS PLAN TO RETURN HOME WITH [facility] RESUMPTION. PROVIDER LISTING PROVIDED, PT SIGNED CHOICE FOR [facility]. IMPORTANT MESSAGE FROM MEDICARE PROVIDED AND EXPLAINED. CM REVIEWED CHART, ORDER ENTERED FOR HOME OXYGEN TESTING TO DETERMINE IF PT WILL QUALIFY FOR PORTABLE OXYGEN PER MEDICARE STANDARDS. CM CALLED [employer]IM[facility], PT'S OXYGEN PROVIDER, WAS ADVISED BY DANA THAT IF PT QUALIFIES FOR OXYGEN, THE DOCTOR WILL ALSO HAVE TO NOTE THAT "THE PATIENT IS IN CHRONIC AND STABLE STATE" PRIOR TO DISCHARGE FOR [facility] TO ARRANGE ANY PORTABLE OXYGEN. CM FAXED HOSPITAL UPDATE TO [facility], . CM CONTINUES TO WAIT PORTABLE OXYGEN TESTING AND WILL ARRANGE IF PT QUALIFIES PRIOR TO DISCHARGE HOME. FOR DISCHARGE, NOTIFY [facility] AT [phone]; FAX DISCHARGE INFORMATION TO [facility] AT [phone]. Wolf Lemus, CASE MANAGEMENT DCP- Discharge Planning Updated by [id number]: Petrona Rashid on 12/14/18 3:[address] CM met with patient and spouse, Sammy @bedside to discuss dc plans/needs. Patient is alert but not oriented (dx of Parkinson's. Spouse gives permission to speak with family members in room. PCP: Dr. Knapp. Pharmacy: [facility], 1928[facility]1983. Emergency contact: Sammysondra Malik (spouse) [phone], Samara Hinds (dtr) [phone]. DME: ([facility]) Shower chair, RW, BSC, O2, nebulizer, portable O2, E-tank. Family states patient is partially dependent in her care at home. HHS: [facility] is current, [facility] with tech assist for ADL's. Patient will require portable O2 for transportation home. Family will drive her home. Spouse denies that patient has been hospitalization within the past 30 days. DCPIA - Discharge Planning Initial Assessment Updated by [id number]: Petrona Rashid on 12/14/18 4:12 pm * Is the patient Alert and Oriented? No * How many steps to enter\\exit or inside your home? * PCP Dr. Knapp * Pharmacy [facility] * Preadmission Environment Home with Family * ADLs Partial Dependent * Partial ADLs (Assistance needed) Bathing Dressing Medication Management * Equipment Bedside Commode Nebulizer Oxygen Rolling Walker Shower Chair * Other Equipment Portable O2, E-tank DME: [facility] * List name and contact numbers for known caregivers / representatives who currently or will assist patient after discharge: Sammy Malik (c) [phone] (spouse) Samara Hinds #[phone] (dtr) * Verbal permission to speak to the caregivers and representatives has been obtained from the patient. Yes * Community resources currently utilized [facility] * Please name any agencies selected above. [facility] (tech) for ADL's * Additional services required to return to the preadmission environment? Yes * Can the patient safely return to the preadmission environment? Yes * Has this patient been hospitalized within the prior 30 days at any hospital? No Coverage Notice Reviewer: [id number] - Jacquelyn Morelos Notice Issued Date-Time: 12/18/2018 15:32 Notice Type: IM Discharge Notice Notice Delivered To: Patient Relationship to Patient: Self Sack Maker Name: Delivery Method: - Leyda Days: Prior Verbal Notification: Recipient Understood Notice: Recipient Signature: Med Rec Note Co-signed by Attending: Coverage Notice Comment: Reviewer: [id number] Crista Lemus Notice Issued Date-Time: 12/15/2018 10:40 Notice Type: Patient Choice Letter Notice Delivered To: Patient Relationship to Patient: Sack Maker Name: Delivery Method: HAND - Hand Delivered Leyda Days: Prior Verbal Notification: Recipient Understood Notice: Yes Recipient Signature: Yes Med Rec Note Co-signed by Attending: Coverage Notice Comment: [facility] RESUMPTION Reviewer: [email or web address] Crista Lemus Notice Issued Date-Time: 12/15/2018 10:40 Notice Type: IM Discharge Notice Notice Delivered To: Patient Relationship to Patient: Sack Maker Name: Delivery Method: HAND - Hand Delivered Leyda Days: Prior Verbal Notification: Recipient Understood Notice: Yes Recipient Signature: Yes Med Rec Note Co-signed by Attending: Coverage Notice Comment: Last DP export: 12/19/18 3:45 p Patient Name: YANET MALIK Page [id number] at 1651 All edits/amendments must be made on the electronic document DICTATION DATE: 12/19/181650 CROP PRODUCTION ADVISOR: BLESSING 12/19/181650 RPT#: [id number] DC DATE:12/18/18 STATUS: DIS IN [facility] [address] [place] [address] END OF REPORT
--- NOTE | 2018-12-20 07:59 | MORECARE ---
CASE MANAGEMENT DISCHARGE SUMMARY PATIENT: YANET MALIK UNIT: [id number] ADM DATE: 12/14/18 AGE: 78 : 41 SEX: F ROOM/BED: D.2101 AUTHOR: LEONARD,DOC PHYSICIAN: REFERRING PHYSICIAN: RODOLFO RAMIRES MD DATE OF SERVICE: 12/20/18 Discharge Plan Patient Name: YANET MALIK Facility: [facility]:[place] : 1940 Planned Disposition: Home with Home Health Anticipated Discharge Date: 12/18/18 Discharge Date: 12/18/2018 Expected LOS: 4 Initial Reviewer: [id number] Initial Review Date: 12/14/2018 Generated: 12/20/18 8:59 am Comments DCP- Discharge Planning Updated by [id number]: Jacquelyn Morelos on 12/19/18 3:[address] CM HAD BEEN UNABLE TO NOTIFY [facility] OF DISCHARGE 12/18/18. NO ANSWER TO MULTIPLE PHONE CALLS ON . TC TO [facility]. CM WAS TRANSFERED TO [employer]. ADVISED OF PHONE CONTACT DIFFICULTY W/ CALLS AND FAX. SHE WILL NOTIFY THE PATENT DRAFTER. CLINICAL UPDATE GIVEN. PATIENT IS PRESENTLY ON SERVICE. PLAN IS FOR PATIENT TO BE SEEN ON THURSDAY. CM FAXED CLINICAL DISCHARGE MED LIST AND INSTRUCTION. AWAIT CONFIRMATION. DCP- Discharge Planning Updated by [id number]: Jacquelyn Morelos on 12/18/18 8:[address] LATE ENTRY 1715 PATIENT ANXIOUS FOR DISCHARGE TO HOME. AT THE BEDSIDE TO PROVIDE TRANSPORTATION. PATIENT APPARENTLY HAD PORTABLE OXYGEN DELIVERED TO HER ROOM THURSDAY. SHE WILL F/U WITH PULMONARY TO ARRANGE FOR OUTPATIENT SLEEP STUDY FOR BIPAP. DISCUSSED ANTIBIOTIC ORDER WITH PRIMARY NURSE, KIZZY. SHE SPOKE WITH DR BULLOCK ATTEMPTED TO NOTIFY [facility] OF DISCHARGE FOR RESUMPTION OF CARE. TC X5. NO ANSWER BY SERVICE. FAXED DISCHARGE SUMMARY, D/C ORDERS AND MED LIST THIS LATE PM. WILL ATTEMPT TO REACH BY PHONE AGAIN IN AM. DCP- Discharge Planning Updated by [id number]: Wolf Lemus on 12/16/18 1:[address] Patient Name: YANET MALIK Encounter No: [id number] : 1940 Primary Insurance: MEDICARE A & B Anticipated DC Date: Planned Disposition: Home with Home Health External Planned Provider: [facility] DCP follow-up note: CM RECEIVED OXYGEN TESTING, PT WAS 81% ON ROOM AIR AT REST, RECOVERY TO 94% ON 2 LITERS NASAL CANNULA. [facility], THE DOCTOR WILL ALSO HAVE TO NOTE THAT "THE PATIENT IS IN CHRONIC AND STABLE STATE" PRIOR TO DISCHARGE FOR [facility] TO ARRANGE ANY PORTABLE OXYGEN. PT WILL REQUIRE OXYGEN TESTING WITHIN 48 HOURS OF DISCHARGE AND CM WILL ARRANGE IF PT QUALIFIES PRIOR TO DISCHARGE HOME. FOR DISCHARGE, NOTIFY [facility] AT [phone]; FAX DISCHARGE INFORMATION TO [facility] AT [phone]. Wolf Lemus, CASE MANAGEMENT DCP- Discharge Planning Updated by [email or web address]: Wolf Lemus on 12/15/18 3:[address] Patient Name: YANET MALIK Encounter No: [id number] : 1940 Primary Insurance: MEDICARE A & B Anticipated DC Date: Planned Disposition: Home with Home Health External Planned Provider: [facility] DCP follow-up note: CM REVIEWED CHART, PT HAS DOCTORS NOT INDICATING PT MAY NEED PORTABLE OXYGEN FOR DISCHARGE HOME. CM MET WITH PT AND SPOUSE IN ROOM TO DISCUSS DISCHARGE NEEDS. PT REPORTS HAVING HOME OXYGEN AND LARGE TANK ON WHEELS IN CASE ELECTRICITY GOES OUT. THEY DO NOT HAVE PORTABLE BOTTLES OR PORTABLE CONCENTRATOR AT HOME. PT REPORTS THAT DR. KNAPP TESTED HER ALREADY AND SHE HAS NOT YET GOTTEN PORTABLE OXYGEN. PT REPORTS PLAN TO RETURN HOME WITH [facility] RESUMPTION. PROVIDER LISTING PROVIDED, PT SIGNED CHOICE FOR [facility]. IMPORTANT MESSAGE FROM MEDICARE PROVIDED AND EXPLAINED. CM REVIEWED CHART, ORDER ENTERED FOR HOME OXYGEN TESTING TO DETERMINE IF PT WILL QUALIFY FOR PORTABLE OXYGEN PER MEDICARE STANDARDS. CM CALLED [facility], PT'S OXYGEN PROVIDER, WAS ADVISED BY DANA THAT IF PT QUALIFIES FOR OXYGEN, THE DOCTOR WILL ALSO HAVE TO NOTE THAT "THE PATIENT IS IN CHRONIC AND STABLE STATE" PRIOR TO DISCHARGE FOR [facility] TO ARRANGE ANY PORTABLE OXYGEN. CM FAXED HOSPITAL UPDATE TO [facility], . CM CONTINUES TO WAIT PORTABLE OXYGEN TESTING AND WILL ARRANGE IF PT QUALIFIES PRIOR TO DISCHARGE HOME. FOR DISCHARGE, NOTIFY [facility] AT [phone]; FAX DISCHARGE INFORMATION TO [facility] AT [phone]. Wolf Lemus, CASE MANAGEMENT DCP- Discharge Planning Updated by [id number]: Petrona Rashid on 12/14/18 3:[address] CM met with patient and spouse, Sammy @bedside to discuss dc plans/needs. Patient is alert but not oriented (dx of Parkinson's. Spouse gives permission to speak with family members in room. PCP: Dr. Knapp. Pharmacy: [facility]. Emergency contact: Sammysondra Malik (spouse) [phone], Samara Hinds (dtr) [phone]. DME: ([facility]) Shower chair, RW, BSC, O2, nebulizer, portable O2, E-tank. Family states patient is partially dependent in her care at home. HHS: [facility] is current, [facility] with tech assist for ADL's. Patient will require portable O2 for transportation home. Family will drive her home. Spouse denies that patient has been hospitalization within the past 30 days. DCPIA - Discharge Planning Initial Assessment Updated by [id number]: Petrona Rashid on 12/14/18 4:12 pm * Is the patient Alert and Oriented? No * How many steps to enter\\exit or inside your home? * PCP Dr. Knapp * Pharmacy [facility] * Preadmission Environment Home with Family * ADLs Partial Dependent * Partial ADLs (Assistance needed) Bathing Dressing Medication Management * Equipment Bedside Commode Nebulizer Oxygen Rolling Walker Shower Chair * Other Equipment Portable O2, E-tank DME: [facility] * List name and contact numbers for known caregivers / representatives who currently or will assist patient after discharge: Sammy Malik (c) [phone] (spouse) Samara Hinds #[phone] (dtr) * Verbal permission to speak to the caregivers and representatives has been obtained from the patient. Yes * Community resources currently utilized [facility] * Please name any agencies selected above. [facility] (tech) for ADL's * Additional services required to return to the preadmission environment? Yes * Can the patient safely return to the preadmission environment? Yes * Has this patient been hospitalized within the prior 30 days at any hospital? No Coverage Notice Reviewer: [id number] - Jacquelyn Morelos Notice Issued Date-Time: 12/18/2018 15:32 Notice Type: IM Discharge Notice Notice Delivered To: Patient Relationship to Patient: Self Grain Ii Farmworker Name: Delivery Method: - Leyda Days: Prior Verbal Notification: Recipient Understood Notice: Recipient Signature: Med Rec Note Co-signed by Attending: Coverage Notice Comment: Reviewer: [id number] Crista Lemus Notice Issued Date-Time: 12/15/2018 10:40 Notice Type: Patient Choice Letter Notice Delivered To: Patient Relationship to Patient: Grain Ii Farmworker Name: Delivery Method: HAND - Hand Delivered Leyda Days: Prior Verbal Notification: Recipient Understood Notice: Yes Recipient Signature: Yes Med Rec Note Co-signed by Attending: Coverage Notice Comment: [facility] RESUMPTION Reviewer: [id number] Crista Lemus Notice Issued Date-Time: 12/15/2018 10:40 Notice Type: IM Discharge Notice Notice Delivered To: Patient Relationship to Patient: Grain Ii Farmworker Name: Delivery Method: HAND - Hand Delivered Leyda Days: Prior Verbal Notification: Recipient Understood Notice: Yes Recipient Signature: Yes Med Rec Note Co-signed by Attending: Coverage Notice Comment: Last DP export: 12/19/18 3:51 p Patient Name: YANET MALIK Page 13301 at 0759 All edits/amendments must be made on the electronic document DICTATION DATE: 12/20/189 APPLIED EXERCISE PHYSIOLOGIST: BLESSING 12/20/18 0759 RPT#: [id number] DC DATE:12/18/18 STATUS: DIS IN [facility] [address] [place] [address] END OF REPORT
== END 2018-12-18 18:10 | disposition home health service (06) | DRG 189 ==
LOC: D.ER 12:41 → D.EDHOLD 15:17 → D.M2 15:33
PROVIDERS: Emergency Medicine; ADMIT Emergency Medicine; ATTEND Emergency Medicine
PROC: 5A09457 Assistance with Respiratory Ventilation, 24-96 Consecutive Hours, Continuous Positive Airway Pressure (ICD-10-PCS; principal; 2018-12-15)
DX: J96.21 Acute and chronic respiratory failure with hypoxia (principal); J44.1 Chronic obstructive pulmonary disease with (acute) exacerbation; J96.22 Acute and chronic respiratory failure with hypercapnia; E87.6 Hypokalemia; G20 Parkinson's disease; G62.9 Polyneuropathy, unspecified; I10 Essential (primary) hypertension; I25.10 Atherosclerotic heart disease of native coronary artery without angina pectoris; K21.9 Gastro-esophageal reflux disease without esophagitis; K58.9 Irritable bowel syndrome, unspecified; F32.9 Major depressive disorder, single episode, unspecified; F41.9 Anxiety disorder, unspecified; J32.9 Chronic sinusitis, unspecified; J40 Bronchitis, not specified as acute or chronic; Z87.891 Personal history of nicotine dependence

== ENCOUNTER 2019-01-26 13:09 | Emergency (ER) | payer MEDICARE ==
[~2019-01-26] VITALS: Ht 162.6 cm; Wt 90.9 kg
[~2019-01-26 13:09] MED LIST changes: +MONODOX100 MG PO; +PREDNISONE10 MG PO; +SEROQUEL25 MG PO; +SEROQUEL50 MG PO
[2019-01-26 13:13] VITALS: Ht 162.6 cm; Wt 90.9 kg
[2019-01-26] MEDS ORDERED: FUROSEMIDE20 MG PO (13:20)
[2019-01-26 14:00] LABS: ALBUMIN 3.1 g/dL (3.4-5.0); BILIRUBIN - TOTAL 0.36 mg/dL (0.2-1.3); CALCIUM 8.6 mg/dL (8.5-10.1); CARBON DIOXIDE 23.3 mmol/L (21.0-32.0); CREATININE - SERUM 3.1 mg/dL (0.6-1.3); POTASSIUM - SERUM 3.3 mmol/L (3.5-5.1); PROTEIN - SERUM 6.9 g/dL (6.4-8.2)
[2019-01-26 14:28] LABS: HEMATOCRIT 37.2 % (36.0-48.0); HEMOGLOBIN 12.3 g/dL (12-16); MCH 28.7 pg (26.0-34.0); MCHC 33.1 g/dL (31.0-37.0); MCV 86.9 fL (80.0-100.0); MEAN PLATELET VOLUME 10.9 fL (7.4-10.4); PLATELET COUNT 404 10x3/uL (130-400); RBC 4.28 10x6/uL (4.00-5.40); RDW 17.9 % (11.5-14.5); WBC 21.3 10x3/uL (4.8-10.8)
[2019-01-26 15:13] LABS: APPEARANCE HAZY (CLEAR); COLOR YELLOW (YELLOW)
[2019-01-26 15:14] LABS: BILIRUBIN NEGATIVE (NEGATIVE); GLUCOSE NEGATIVE (NEGATIVE); KETONE NEGATIVE (NEGATIVE); NITRITE NEGATIVE (NEGATIVE); PROTEIN TRACE mg/dL (NEGATIVE); UROBILINOGEN NORMAL (NORMAL)
[2019-01-26 15:15] LABS: BACTERIA MANY /hpf (NONE SEEN); EPITHELIAL CELLS 0-5 /hpf (0-5); RED CELLS - URINE 0-5 /hpf (0-5); WHITE CELLS - URINE 0-5 /hpf (0-5)
[2019-01-26 16:19] LABS: EOSINOPHILS 2 % (0-7); LYMPHOCYTES 7 % (15-50); MONOCYTES 4 % (2-11); NEUTROPHILS 70 % (40-80); PLATELET ESTIMATE NORMAL
[2019-01-26] MEDS ORDERED: ZOFRAN ODT4 MG/UDTAB PO (17:59)
[2019-01-26] MEDS ORDERED: LOMOTIL 2.5-0.1 EAC1 PO (17:59)
[2019-01-26 18:31] VITALS: BP 118/89
== END 2019-01-26 18:28 | disposition home or self-care (01) ==
LOC: D.ER 13:09
PROVIDERS: Emergency Medicine
DX: K52.9 Noninfective gastroenteritis and colitis, unspecified (principal); E86.0 Dehydration

== ENCOUNTER → 2019-03-25 10:43 | Outpatient (CLI) | payer MEDICARE ==
[2019-01-26 13:13] VITALS: BMI 34.4
[~2019-03-25 10:43] MED LIST changes: +LOMOTIL 2.5-0.1 EAC1 PO; +ZOFRAN ODT4 MG/UDTAB PO
== END | disposition home or self-care (01) ==
LOC: D.US 10:43
PROVIDERS: ATTEND Internal Medicine Cardiovascular Disease
DX: R42 Dizziness and giddiness (principal); H53.9 Unspecified visual disturbance

== ENCOUNTER 2021-01-26 14:14 | Inpatient (IN) | payer MEDICARE ==
[~2021-01-26] VITALS: Ht 162.6 cm; Wt 108.4 kg
[~2021-01-26 14:14] MED LIST changes: +NORVASC10 MG PO; +ZOLOFT50 MG PO
[2021-01-26 14:36] LABS: BILIRUBIN NEGATIVE (NEGATIVE); KETONE NEGATIVE (NEGATIVE); NITRITE NEGATIVE (NEGATIVE); UROBILINOGEN NORMAL mg/dL (< 2)
[2021-01-26 14:49] LABS: UDS - AMPHET NEGATIVE QUAL (NEGATIVE); UDS - BARB NEGATIVE QUAL (NEGATIVE); UDS - BENZO POSITIVE QUAL (NEGATIVE); UDS - COCAINE NEGATIVE QUAL (NEGATIVE); UDS - OPIATE NEGATIVE QUAL (NEGATIVE); UDS - PCP NEGATIVE QUAL (NEGATIVE); UDS - THC NEGATIVE QUAL (NEGATIVE)
[2021-01-26 14:58] LABS: BASOPHILS 0.3 % (0-2); EOSINOPHILS 9.1 % (0-7); HEMATOCRIT 33.3 % (36.0-48.0); HEMOGLOBIN 10.1 g/dL (12-16); IMMATURE GRANULOCYTES 1.9 % (0-5); LYMPHOCYTE ABS# 1.56 10x3/uL (1.18-3.74); LYMPHOCYTES 12.7 % (15-50); MCH 30.5 pg (26.0-34.0); MCHC 30.3 g/dL (31.0-37.0); MCV 100.6 fL (80.0-100.0); MEAN PLATELET VOLUME 11.4 fL (7.4-10.4); MONOCYTES 12.7 % (2-11); NEUTROPHIL ABS# 7.79 10x3/uL (1.56-6.13); NEUTROPHILS 63.3 % (40-80); PLATELET COUNT 268 10x3/uL (130-400); RBC 3.31 10x6/uL (4.00-5.40); RDW 18.6 % (11.5-14.5); WBC 12.3 10x3/uL (4.8-10.8)
[2021-01-26 15:08] LABS: APTT 34.9 SECONDS (22.8-39.4); INR 1.13 (0.85-1.17); PROTIME 13.5 SECONDS (11.6-15.0)
[2021-01-26 15:11] LABS: CALC OSMOLALITY 294 mosm/kg (275-300); CALCIUM 9.2 mg/dL (8.5-10.1); CARBON DIOXIDE 34.6 mmol/L (21.0-32.0); CHLORIDE - SERUM 102 mmol/L (98-107); CREATININE - SERUM 1.5 mg/dL (0.6-1.3); GLUCOSE 128 mg/dL (74-106); POTASSIUM - SERUM 3.5 mmol/L (3.5-5.1); SODIUM 144 mmol/L (136-145); UREA NITROGEN 29 mg/dL (7-18); eGFR NON AFRICAN AMERICAN 35 mL/min (90-120)
[2021-01-26 15:41] LABS: ALBUMIN 3.1 g/dL (3.4-5.0); ALKALINE PHOSPHATASE 79 U/L (30-120); ALT (SGPT) 17 U/L (10-68); BILIRUBIN - TOTAL 0.48 mg/dL (0.2-1.3); CREATINE KINASE 116 UL (21-215); MAGNESIUM - SERUM 2.1 mg/dL (1.8-2.4); PROTEIN - SERUM 7.1 g/dL (6.4-8.2); THYROID STIMULATING HORMONE 1.37 uIU/mL (0.36-3.74)
[2021-01-26 15:53] LABS: TROPONIN-I < 0.017 ng/mL (0.000-0.060)
[2021-01-26 16:06] LABS: CKMB 1.7 U/L (0.0-3.6)
[2021-01-26 17:27] VITALS: BMI 42.5
[2021-01-26 17:50] LABS: CKMB 2.1 U/L (0.0-3.6); CREATINE KINASE 122 UL (21-215); TROPONIN-I 0.025 ng/mL (0.000-0.060)
--- NOTE | 2021-01-26 19:41 | NUR ---
PATIENT RESTING IN BED WITH NO S/S OF DISTRESS. SON AT BEDSIDE. CONNECTED AND FLUSHED PATIENT'S IV TO RIGHT HAND. PATIENT AND SON DENY OTHER NEEDS AT THIS TIME. BED IN LOWEST POSITION AND CALL LIGHT IN REACH. ENCOURAGED TO CALL WITH NEEDS.
[2021-01-26 20:00] VITALS: BP 94/66
--- NOTE | 2021-01-26 22:07 | NUR ---
ADMINISTERED MEDS PER ORDERS. PATIENT CAMMIE WELL. ENCOURAGED TO CALL WITH NEEDS.
[2021-01-27] VITALS: BP 122/49
[2021-01-27 02:12] LABS: CKMB 1.5 U/L (0.0-3.6); CREATINE KINASE 110 UL (21-215)
[2021-01-27 04:00] VITALS: BP 148/42
[2021-01-27 07:24] LABS: BASOPHILS 0.3 % (0-2); EOSINOPHILS 9.5 % (0-7); HEMATOCRIT 30.8 % (36.0-48.0); HEMOGLOBIN 9.3 g/dL (12-16); IMMATURE GRANULOCYTES 1.9 % (0-5); LYMPHOCYTE ABS# 1.11 10x3/uL (1.18-3.74); LYMPHOCYTES 10.3 % (15-50); MCH 30.2 pg (26.0-34.0); MCHC 30.2 g/dL (31.0-37.0); MEAN PLATELET VOLUME 11.5 fL (7.4-10.4); MONOCYTES 11.8 % (2-11); NEUTROPHILS 66.2 % (40-80); PLATELET COUNT 256 10x3/uL (130-400); RBC 3.08 10x6/uL (4.00-5.40); RDW 18.5 % (11.5-14.5); WBC 10.7 10x3/uL (4.8-10.8)
[2021-01-27 08:18] LABS: ALBUMIN 2.7 g/dL (3.4-5.0); ALKALINE PHOSPHATASE 69 U/L (30-120); ALT (SGPT) 17 U/L (10-68); BILIRUBIN - TOTAL 0.72 mg/dL (0.2-1.3); CALC OSMOLALITY 295 mosm/kg (275-300); CALCIUM 8.7 mg/dL (8.5-10.1); CARBON DIOXIDE 33.1 mmol/L (21.0-32.0); CHLORIDE - SERUM 105 mmol/L (98-107); CKMB 1.5 U/L (0.0-3.6); CREATINE KINASE 104 UL (21-215); GLUCOSE 115 mg/dL (74-106); POTASSIUM - SERUM 3.5 mmol/L (3.5-5.1); PROTEIN - SERUM 5.7 g/dL (6.4-8.2); SODIUM 147 mmol/L (136-145); TROPONIN-I 0.054 ng/mL (0.000-0.060); UREA NITROGEN 22 mg/dL (7-18)
[2021-01-27 08:19] LABS: CREATININE - SERUM 1.1 mg/dL (0.6-1.3); eGFR NON AFRICAN AMERICAN 51 mL/min (90-120)
[2021-01-27 09:31] VITALS: BP 148/58
[2021-01-27 13:31] VITALS: BP 133/49
--- NOTE | 2021-01-27 14:36 | NUR ---
ERYTHEMA WITH WARMTH NOTED TO LEFT BRACHIAL AREA WIT GOOD ROM. B. HARSHAL SUPERVISOR PRINTING SHOP NOTIFIED WITH NEW ORDER NOTED. TYLENOL GIVEN FOR DISCOMFORT. WARM COMPRESS APPLIED. ENCOURAGD FAMILY WITH PATIENT TO USE CALL LIGHT FOR ASSSIT.
[2021-01-27 17:23] VITALS: BP 120/95
[2021-01-27 20:00] VITALS: BP 141/46
--- NOTE | 2021-01-27 20:07 | NUR ---
PATIENT RESTING IN BED WITH NO S/S OF DISTRESS. PATIENT DENIES NEEDS AT THIS TIME. BED IN LOWEST POSITION AND CALL LIGHT IN REACH. ENCOURAGED PATIENT TO CALL WITH NEEDS.
--- NOTE | 2021-01-27 22:26 | NUR ---
ADMINISTERED MEDS PER ORDERS. PATIENT CAMMIE WELL. ENCOURAGED TO CALL WITH NEEDS.
--- NOTE | 2021-01-28 01:01 | NUR ---
COMMUNICATION CENTER OPERATOR CLEANED PATIENT UP AFTER INCONTIENT EPISODE.
[2021-01-28 04:00] VITALS: BP 161/42
[2021-01-28 06:03] LABS: BASOPHILS 0.2 % (0-2); EOSINOPHILS 11.8 % (0-7); HEMATOCRIT 28.5 % (36.0-48.0); HEMOGLOBIN 8.6 g/dL (12-16); IMMATURE GRANULOCYTES 1.6 % (0-5); LYMPHOCYTE ABS# 0.89 10x3/uL (1.18-3.74); LYMPHOCYTES 10.7 % (15-50); MCH 30.1 pg (26.0-34.0); MCHC 30.2 g/dL (31.0-37.0); MCV 99.7 fL (80.0-100.0); MEAN PLATELET VOLUME 11.5 fL (7.4-10.4); MONOCYTES 12.3 % (2-11); NEUTROPHIL ABS# 5.27 10x3/uL (1.56-6.13); NEUTROPHILS 63.4 % (40-80); PLATELET COUNT 250 10x3/uL (130-400); RBC 2.86 10x6/uL (4.00-5.40); RDW 18.1 % (11.5-14.5); WBC 8.3 10x3/uL (4.8-10.8)
[2021-01-28 06:20] LABS: ALBUMIN 2.4 g/dL (3.4-5.0); ANION GAP 7.7 mmol/L (8-16); BILIRUBIN - TOTAL 0.72 mg/dL (0.2-1.3); CALCIUM 9.3 mg/dL (8.5-10.1); CARBON DIOXIDE 33.3 mmol/L (21.0-32.0); PROTEIN - SERUM 5.9 g/dL (6.4-8.2)
[2021-01-28 09:11] VITALS: BP 166/55
[2021-01-28 12:58] VITALS: BP 187/98
[2021-01-28 18:22] VITALS: BP 153/59
--- NOTE | 2021-01-28 19:00 | NUR ---
PT REPORT GIVEN BY KRISTINE POTTER
--- NOTE | 2021-01-28 19:30 | NUR ---
IN PT ROOM FOR A QUICK CHECK. PT IS ON THE BIPAP. HER SON IS IN THE ROOM TRYING TO KEEP PT FROM PULLING THE MASK OFF. DURAND CATHETER DRAINING YELLOW URINE. NO C/O AT THIS TIME. EXPLAINED THAT I WOULD BE BACK.
[2021-01-28 19:38] VITALS: BP 130/68
--- NOTE | 2021-01-28 20:30 | NUR ---
ASSESSMENT COMPLETED. NO NEW C/O. PT STILL PULLING AT BIPAP MASK EVERY NOW AND THEN. SON AT BEDSIDE.
--- NOTE | 2021-01-29 03:20 | NUR ---
PT IS STILL PULLING AT MASK SOME. NO OTHER CHANGES.
[2021-01-29 04:00] VITALS: BP 152/53
[2021-01-29 06:53] LABS: ALBUMIN 2.5 g/dL (3.4-5.0); BILIRUBIN - TOTAL 0.82 mg/dL (0.2-1.3); CALCIUM 9.1 mg/dL (8.5-10.1); CARBON DIOXIDE 31.7 mmol/L (21.0-32.0); CREATININE - SERUM 1.2 mg/dL (0.6-1.3); PROTEIN - SERUM 6.3 g/dL (6.4-8.2)
[2021-01-29 06:56] LABS: ANION GAP 11.8 mmol/L (8-16); POTASSIUM - SERUM 3.5 mmol/L (3.5-5.1)
[2021-01-29 06:57] LABS: BASOPHILS 0.2 % (0-2); EOSINOPHILS 7.4 % (0-7); HEMATOCRIT 28.4 % (36.0-48.0); HEMOGLOBIN 8.7 g/dL (12-16); IMMATURE GRANULOCYTES 1.4 % (0-5); LYMPHOCYTES 11.3 % (15-50); MCH 30.5 pg (26.0-34.0); MCHC 30.6 g/dL (31.0-37.0); MCV 99.6 fL (80.0-100.0); MEAN PLATELET VOLUME 11.6 fL (7.4-10.4); MONOCYTES 14.9 % (2-11); NEUTROPHIL ABS# 5.73 10x3/uL (1.56-6.13); NEUTROPHILS 64.8 % (40-80); PLATELET COUNT 254 10x3/uL (130-400); RBC 2.85 10x6/uL (4.00-5.40); RDW 18.3 % (11.5-14.5); WBC 8.8 10x3/uL (4.8-10.8)
[2021-01-29 08:38] VITALS: BP 148/58
[2021-01-29 12:30] VITALS: BP 128/39
[2021-01-29 13:33] VITALS: Ht 162.6 cm; Wt 108.4 kg
--- NOTE | 2021-01-29 15:41 | NUR ---
OT NOTE: PT REMAINS ON BIPAP THIS AM.. WILL CONT TO MONITOR. JON CARREON, OTR/L
[2021-01-29 16:33] VITALS: BP 113/64
--- NOTE | 2021-01-29 19:00 | NUR ---
RECEIVED SHIFT REPORT FROM MADHU HOOPER
--- NOTE | 2021-01-29 19:15 | NUR ---
ASSESSMENT PER FLOW SHEE, VS OBTAINED PER BANK BOSS, SALINE LOCK TO LEFT FA INTACT WITH NO REDNESS OR EDEMA, PT ON VENTI MASK AT THIS TIME, DURAND CATH INTACT DRAINING DARK YELLOW URINE, TELEMETRY IN PLACE, SCD'S ON AND WORKING PROPERLY, PT'S DAUGHTER STEPPED OUT FOR A SNACK, BED IN LOW POSITION, SIDE RAILS X2, CALL LIGHT IN REACH, BED ALARM ON AND WORKING PROPERLY
--- NOTE | 2021-01-29 20:00 | NUR ---
02 SAT AT 88%, RESP NOTIFIED
--- NOTE | 2021-01-29 20:08 | NUR ---
RESP TO ROOM, REPORTS O2 SAT UP TO 92% WITH VENTI MASK, 55% @14L, RESP REPORTS THAT PT MUST KEEP MASK ON BECAUSE IT WILL DROP QUICKLY, PTS DAUGHTER BACK TO ROOM AND INFORMED
[2021-01-29 20:23] VITALS: BP 148/63
--- NOTE | 2021-01-29 21:24 | NUR ---
PT AWAKE, ADM 2100 MEDS CRUSHED, PLACED IN VANILLA PUDDING, CAMMIE WELL, PT TOOK SMALL SIP OF H20, BED IN LOW POSITION, SIDE RAILS X 2, CALL LIGHT IN REACH, BED ALARM ON AND WORKING PROPERLY
--- NOTE | 2021-01-29 22:53 | NUR ---
RESP IN ROOM, PT PLACED ON BIPAP AT THIS TIME, PT'S DAUGHTER AT BEDSIDE
--- NOTE | 2021-01-30 00:01 | NUR ---
PT RESTING WITH EYES CLOSED, RESP QUIET, NO DISTRESS NOTED, LEFT UNDISTURBED AT THIS TIME, BED IN LOW POSITION, SIDE RAILS X 2, CALL LIGHT IN REACH, BED ALARM ON, PT'S DAUGHTER AT BEDSIDE
--- NOTE | 2021-01-30 02:04 | NUR ---
PT RESTING WITH EYES CLOSED, RESP QUIET, NO DISTRESS NOTED, LEFT UNDISTURBED AT THIS TIME, BED IN LOW POSITION, SIDE RAILS X 2, CALL LIGHT IN REACH, BED ALARM ON AND WORKING PROPERLY, PT'S DAUGHTER AT BEDSIDE
--- NOTE | 2021-01-30 05:30 | NUR ---
PT REPOSITIONED IN BED PER THIS RN AND RESERVE OFFICER, RESERVE OFFICER HAD DONE DURAND CARE, BIPAP CONTINUES
[2021-01-30 06:41] LABS: BASOPHILS 0.3 % (0-2); HEMATOCRIT 28.8 % (36.0-48.0); HEMOGLOBIN 8.6 g/dL (12-16); IMMATURE GRANULOCYTES 0.8 % (0-5); LYMPHOCYTE ABS# 0.95 10x3/uL (1.18-3.74); LYMPHOCYTES 10.5 % (15-50); MCH 30.1 pg (26.0-34.0); MCHC 29.9 g/dL (31.0-37.0); MCV 100.7 fL (80.0-100.0); MEAN PLATELET VOLUME 11.6 fL (7.4-10.4); MONOCYTES 9.6 % (2-11); NEUTROPHILS 73.8 % (40-80); PLATELET COUNT 263 10x3/uL (130-400); RBC 2.86 10x6/uL (4.00-5.40); RDW 18.3 % (11.5-14.5); WBC 9.1 10x3/uL (4.8-10.8)
[2021-01-30 07:20] LABS: ALBUMIN 2.4 g/dL (3.4-5.0); ANION GAP 13.1 mmol/L (8-16); BILIRUBIN - TOTAL 0.92 mg/dL (0.2-1.3); CALCIUM 8.8 mg/dL (8.5-10.1); CARBON DIOXIDE 31.3 mmol/L (21.0-32.0); CREATININE - SERUM 1.2 mg/dL (0.6-1.3); POTASSIUM - SERUM 3.4 mmol/L (3.5-5.1); PROTEIN - SERUM 6.5 g/dL (6.4-8.2)
--- NOTE | 2021-01-30 08:11 | NUR ---
RESTING IN BED WITH EYES CLOSED. CURRENTLY ON BIPAP SLEEPING COMFORTABLY. IV LOCATED TO LEFT FA CURRENTLY SL. NO CURRENT S/S OF DISTRESS, WILL CONT TO MONITOR.
[2021-01-30 08:15] VITALS: BP 149/56
[2021-01-30 13:00] VITALS: BP 132/84
[2021-01-30 16:46] VITALS: BP 103/46
[2021-01-30 20:00] VITALS: BP 107/64
[2021-01-30 21:33] LABS: BASOPHILS 0.2 % (0-2); EOSINOPHILS 1.7 % (0-7); HEMATOCRIT 29.2 % (36.0-48.0); HEMOGLOBIN 8.8 g/dL (12-16); IMMATURE GRANULOCYTES 0.6 % (0-5); LYMPHOCYTE ABS# 1.02 10x3/uL (1.18-3.74); LYMPHOCYTES 10.1 % (15-50); MCH 30.2 pg (26.0-34.0); MCHC 30.1 g/dL (31.0-37.0); MCV 100.3 fL (80.0-100.0); MEAN PLATELET VOLUME 11.3 fL (7.4-10.4); MONOCYTES 11.9 % (2-11); NEUTROPHIL ABS# 7.58 10x3/uL (1.56-6.13); NEUTROPHILS 75.5 % (40-80); PLATELET COUNT 258 10x3/uL (130-400); RBC 2.91 10x6/uL (4.00-5.40); RDW 18.3 % (11.5-14.5); WBC 10.1 10x3/uL (4.8-10.8)
[2021-01-30 21:48] LABS: ALBUMIN 2.4 g/dL (3.4-5.0); ANION GAP 10.5 mmol/L (8-16); BILIRUBIN - TOTAL 0.95 mg/dL (0.2-1.3); CALCIUM 8.8 mg/dL (8.5-10.1); CARBON DIOXIDE 33.3 mmol/L (21.0-32.0); CREATININE - SERUM 1.4 mg/dL (0.6-1.3); POTASSIUM - SERUM 3.8 mmol/L (3.5-5.1); PROTEIN - SERUM 6.5 g/dL (6.4-8.2)
[2021-01-31 03:43] LABS: BILIRUBIN NEGATIVE (NEGATIVE); KETONE NEGATIVE (NEGATIVE); NITRITE NEGATIVE (NEGATIVE); UROBILINOGEN NORMAL mg/dL (< 2)
[2021-01-31 03:47] LABS: BACTERIA FEW HPF (NONE SEEN); SQUAMOUS EPITHELIAL 0-5 HPF (0-4); WHITE CELLS - URINE 0-5 HPF (0-4)
--- NOTE | 2021-01-31 03:59 | NUR ---
PT REPOSITIONED IN BED Q 2 HOURS, PT TEMP HAS BEEN CHECKED EVERY 2 HOURS WELL NOT HIGHER THAN 99.1. PT PULLING AT BIPAP MASK PER DAUGHTER AND SHE HAS BEEN MONITORING HER. WILL CONT PLAN OF CARE.
[2021-01-31 04:00] VITALS: BP 141/68
[2021-01-31 06:21] LABS: BASOPHILS 0.2 % (0-2); EOSINOPHILS 2.6 % (0-7); HEMATOCRIT 29.7 % (36.0-48.0); HEMOGLOBIN 8.8 g/dL (12-16); IMMATURE GRANULOCYTES 0.4 % (0-5); LYMPHOCYTE ABS# 0.94 10x3/uL (1.18-3.74); LYMPHOCYTES 9.2 % (15-50); MCHC 29.6 g/dL (31.0-37.0); MCV 101.4 fL (80.0-100.0); MEAN PLATELET VOLUME 11.5 fL (7.4-10.4); MONOCYTES 7.4 % (2-11); NEUTROPHIL ABS# 8.18 10x3/uL (1.56-6.13); NEUTROPHILS 80.2 % (40-80); PLATELET COUNT 265 10x3/uL (130-400); RBC 2.93 10x6/uL (4.00-5.40); RDW 18.3 % (11.5-14.5); WBC 10.2 10x3/uL (4.8-10.8)
[2021-01-31 06:59] LABS: ALBUMIN 2.3 g/dL (3.4-5.0); ANION GAP 13.7 mmol/L (8-16); BILIRUBIN - TOTAL 0.93 mg/dL (0.2-1.3); CALCIUM 8.3 mg/dL (8.5-10.1); CARBON DIOXIDE 30.1 mmol/L (21.0-32.0); CREATININE - SERUM 1.3 mg/dL (0.6-1.3); POTASSIUM - SERUM 3.8 mmol/L (3.5-5.1); PROTEIN - SERUM 5.8 g/dL (6.4-8.2)
--- NOTE | 2021-01-31 07:44 | MORECARE ---
CASE MANAGEMENT DISCHARGE SUMMARY PATIENT: YANET MALIK UNIT: [id number] ADM DATE: 01/27/21 AGE: 80 : 41 SEX: F [facility] AUTHOR: LEONARDDOC PHYSICIAN: REFERRING PHYSICIAN: DONTA COLMENARES MD DATE OF SERVICE: 01/31/21 Case Management Discharge Planning Summary DCP REVIEW SUMMARY ANTICIPATED D/C DATE: EXPECTED LOS : CASE STATUS: DCP Initiated INITIAL REVIEW: 01/26/2021 INITIAL REVIEWER: Astrid Stoo FINAL DISCHARGE DISPOSITION: : FINAL REVIEWER: FINAL REVIEW DATE: DCP Focus Questions & Answers QUESTION: ANSWER : PATIENT: YANET MALIK ENCOUNTER: [id number] MEDICAL RECORD#: [id number] ADMISSION DATE: 01/27/2021 DISCHARGE DATE: ATTENDING MD: : AGE: 80 MARITAL STATUS: M DC PLAN ID: [id number] FACILITY: [facility] PRINTED ON: 01/31/21 7:44 CT All edits/amendments must be made on the electronic document DICTATION DATE: 01/31/21743 MATLAB DEVELOPER: DM 01/31/2144 RPT#: [id number] DC DATE: STATUS: ADM IN [facility] [address] [place] [address] END OF REPORT
--- NOTE | 2021-01-31 07:55 | MORECARE ---
CASE MANAGEMENT DISCHARGE SUMMARY PATIENT: YANET MALIK UNIT: [id number] ADM DATE: 01/27/21 AGE: 80 : 41 SEX: F ROOM/BED: D.2213 AUTHOR: LEONARD,DOC PHYSICIAN: REFERRING PHYSICIAN: DONTA COLMENARES MD DATE OF SERVICE: 01/31/21 Case Management Discharge Planning Summary COMMENTS ENTERED DATE: 01/31/21 7:48 CT COMMENT TYPE: Discharge Planning REVIEWER: Astrid Soto late entry 01/30/21 @ 1910 Samara Hinds ( daughter) [phone] Also discussed that her mom should be a DNR I verified that her mothers chart noted that. ENTERED DATE: 01/31/21 7:40 CT COMMENT TYPE: Discharge Planning REVIEWER: Astrid Soto LATE ENTRY 01/30/21 @ 1910 CM met with patient's daughter Samara Hinds to complete initial dc planning assessment. CM educated Samara on the CM role and verbal consent given by patient to complete assessment. Patient lives at home with her where she needs help all the time. CM discussed availability of home health, rehab services, and medical equipment. The patient is current with [facility] who comes 7 days a week from 8-4 each day. She has a very good support system at home. There is always someone with her at all times. She has a walker, chair lift recliner, shower chair, home o2 that she wears 2-3L @ all times with portability and a nebulizer machine from [facility]. Dr Monet is her PCP and she uses [facility]. We spoke about the different levels of rehab and Samara said that they would prefer that she goes to [facility], they have been there before and were very satisfied with their care. They would like a family member to stay with their mom at all times wherever she goes. RONAL obtained and also an IMM signed by Samara. I will send the referral to [facility] and let [facility] know about the referral. CM will continue to follow and will assist as needed with dc plans/needs. DCP REVIEW SUMMARY ANTICIPATED D/C DATE: EXPECTED LOS : CASE STATUS: DCP Initiated INITIAL REVIEW: 01/26/2021 INITIAL REVIEWER: Astrid Soto FINAL DISCHARGE DISPOSITION: : FINAL REVIEWER: FINAL REVIEW DATE: DCP Focus Questions & Answers QUESTION: ANSWER : PATIENT: YANET MALIK ENCOUNTER: [id number] MEDICAL RECORD#: [id number] ADMISSION DATE: 01/27/2021 DISCHARGE DATE: ATTENDING MD: MAYE: AGE: 80 MARITAL STATUS: M DC PLAN ID: [id number] FACILITY: [facility] PRINTED ON: 01/31/21 7:55 CT All edits/amendments must be made on the electronic document DICTATION DATE: 01/31/21754 TECHNICAL ACCOUNT EXECUTIVE: BLESSING 01/31/21754 RPT#: [id number] DC DATE: STATUS: ADM IN [facility] [address] [place] [address] END OF REPORT
[2021-01-31 08:56] VITALS: BP 156/93
--- NOTE | 2021-01-31 09:00 | NUR ---
AROUSES TO VOICE AND ORIENTED TO SELF. UNABLE TO DEMONSTATE INCENTIVE SPIROMETRY WITH FAMILY PRESENT. CONTINUES NPO STATUS. O2 VENIMASK 40% WITH LUNGS DIMINISHED TO BLQ ANTERIOR WITH DYPNEA W/O O2. TELEMETRY INTACT WELL SCD'S. DURAND CATH PATENT WITH CHITO URINE. TURNED AND REPOSITIONED FOR COMFORT Q 2HRS. TYLENOL SUPP. GIVEN FOR 6/10 PAIN AND RELEIVED 2/10. CONT. DNR STATUS.IVF TO LEFT WRIST WITH IVF INFUSING AT PRESCRIBED RATE.
--- NOTE | 2021-01-31 12:10 | NUR ---
Nutrition follow-up: Pt now NPO per speech evaluation due to nonfunctional swallow and possible aspiration pneumonia. Labs reviewed BIPAP on 4 hours BID Wt: 246# Recommendations: If medically feasible, ProcalAmine PPN @ 100 ml/hr for short-term nutrition support. PEG tube placement for long-term nutrition support. RDN will follow-up: 02/04/21
[2021-01-31 12:58] VITALS: BP 141/84
[2021-01-31 16:55] VITALS: BP 148/51
[2021-01-31 20:00] VITALS: BP 145/89
[2021-02-01] VITALS: BP 124/44; BP 141/89
--- NOTE | 2021-02-01 04:39 | NUR ---
DAUGHTER IN ROOM WITH PT REQUESTING PAIN MED FOR HER MOTHER SHE STATES PT IS IN PAIN. ARCENIO WAS INFORMED, PT CAN HAVE TYLENOL SUPP PRESCRIBED SINCE SHE IS HAVING RESP ISSUES. PT IS RESTING WITH EYES CLOSED AT THE MOMENT WILL CONT TO MONITOR.
[2021-02-01 06:58] LABS: ALBUMIN 2.2 g/dL (3.4-5.0); BILIRUBIN - TOTAL 0.74 mg/dL (0.2-1.3); CALCIUM 8.5 mg/dL (8.5-10.1); CREATININE - SERUM 1.3 mg/dL (0.6-1.3); PROTEIN - SERUM 6.4 g/dL (6.4-8.2)
[2021-02-01 07:34] LABS: ANION GAP 12.1 mmol/L (8-16); POTASSIUM - SERUM 3.1 mmol/L (3.5-5.1)
[2021-02-01 07:42] LABS: BASOPHILS 0.3 % (0-2); EOSINOPHILS 8.1 % (0-7); HEMATOCRIT 29.2 % (36.0-48.0); HEMOGLOBIN 8.7 g/dL (12-16); IMMATURE GRANULOCYTES 0.6 % (0-5); LYMPHOCYTE ABS# 0.68 10x3/uL (1.18-3.74); LYMPHOCYTES 6.8 % (15-50); MCH 30.1 pg (26.0-34.0); MCHC 29.8 g/dL (31.0-37.0); NEUTROPHIL ABS# 7.47 10x3/uL (1.56-6.13); NEUTROPHILS 75.2 % (40-80); PLATELET COUNT 283 10x3/uL (130-400); RBC 2.89 10x6/uL (4.00-5.40); RDW 18.3 % (11.5-14.5)
[2021-02-01 09:31] VITALS: BP 125/100
--- NOTE | 2021-02-01 10:51 | MORECARE ---
CASE MANAGEMENT DISCHARGE SUMMARY PATIENT: YANET MALIK UNIT: [id number] ADM DATE: 01/27/21 AGE: 80 : 41 SEX: F ROOM/BED: D.2213 AUTHOR: LEONARD,DOC PHYSICIAN: REFERRING PHYSICIAN: DONTA COLMENARES MD DATE OF SERVICE: 02/01/21 Case Management Discharge Planning Summary COMMENTS ENTERED DATE: 02/01/21 10:40 CT COMMENT TYPE: Discharge Planning REVIEWER: Astrid Soto Patient's family would like to go to [place] to comfort/hospice care. I have called and spoke with Adelfo at [place] and sent the referral out there. I will wait to hear back from [facility]. They would like to use [facility] at [place] if possible I will send the referral to [facility] also ENTERED DATE: 01/31/21 7:48 CT COMMENT TYPE: Discharge Planning REVIEWER: Astrid Soto late entry 01/30/21 @ 1910 Samara Hinds ( daughter) [phone] Also discussed that her mom should be a DNR I verified that her mothers chart noted that. ENTERED DATE: 01/31/21 7:40 CT COMMENT TYPE: Discharge Planning REVIEWER: Astrid Soto LATE ENTRY 01/30/21 @ 1910 CM met with patient's daughter Samara Hinds to complete initial dc planning assessment. CM educated Samara on the CM role and verbal consent given by patient to complete assessment. Patient lives at home with her where she needs help all the time. CM discussed availability of home health, rehab services, and medical equipment. The patient is current with [facility] who comes 7 days a week from 8-4 each day. She has a very good support system at home. There is always someone with her at all times. She has a walker, chair lift recliner, shower chair, home o2 that she wears 2-3L @ all times with portability and a nebulizer machine from [facility]. Dr Monet is her PCP and she uses [facility]. We spoke about the different levels of rehab and Samara said that they would prefer that she goes to [facility], they have been there before and were very satisfied with their care. They would like a family member to stay with their mom at all times wherever she goes. RONAL obtained and also an IMM signed by Samara. I will send the referral to [facility] and let Carol know about the referral. CM will continue to follow and will assist as needed with dc plans/needs. DCP REVIEW SUMMARY ANTICIPATED D/C DATE: EXPECTED LOS : CASE STATUS: DCP Initiated INITIAL REVIEW: 01/26/2021 INITIAL REVIEWER: Astrid Soto FINAL DISCHARGE DISPOSITION: : FINAL REVIEWER: FINAL REVIEW DATE: DCP Focus Questions & Answers QUESTION: ANSWER : PATIENT: YANET MALIK ENCOUNTER: [id number] MEDICAL RECORD#: [id number] ADMISSION DATE: 01/27/2021 DISCHARGE DATE: ATTENDING MD: MAYE: AGE: 80 MARITAL STATUS: M DC PLAN ID: [id number] FACILITY: [facility] PRINTED ON: 02/01/21 10:51 CT All edits/amendments must be made on the electronic document DICTATION DATE: 02/01/211050 GENERAL PRACTITIONER: BLESSING 02/01/21 105 RPT#: [id number] DC DATE: STATUS: ADM IN [facility] [address] [place] [address] END OF REPORT
--- NOTE | 2021-02-01 12:46 | MORECARE ---
CASE MANAGEMENT DISCHARGE SUMMARY PATIENT: YANET MALIK UNIT: [id number] ADM DATE: 01/27/21 AGE: 80 : 41 SEX: F ROOM/BED: D.[facility]3 AUTHOR: LEONARD,DOC PHYSICIAN: REFERRING PHYSICIAN: DONTA COLMENARES MD DATE OF SERVICE: 02/01/21 Case Management Discharge Planning Summary COMMENTS ENTERED DATE: 02/01/21 12:40 CT COMMENT TYPE: Discharge Planning REVIEWER: Astrid Charles Patient will be discharging to [facility] on comfort care. I will send clinicals to [facility] and they can assess her there for hospice. She will be traveling via EMS. to assist as needed ENTERED DATE: 02/01/21 10:40 CT COMMENT TYPE: Discharge Planning REVIEWER: Astrid Soto Patient's family would like to go to [place] to comfort/hospice care. I have called and spoke with Adelfo at [place] and sent the referral out there. I will wait to hear back from [facility]. They would like to use [facility] at [place] if possible I will send the referral to [facility] also ENTERED DATE: 01/31/21 7:48 CT COMMENT TYPE: Discharge Planning REVIEWER: Astrid Charles late entry 01/30/21 @ 1910 Samara Hinds ( daughter) [phone] Also discussed that her mom should be a DNR I verified that her mothers chart noted that. ENTERED DATE: 01/31/21 7:40 CT COMMENT TYPE: Discharge Planning REVIEWER: Astrid Soto LATE ENTRY 01/30/21 @ 1910 CM met with patient's daughter Samara Hinds to complete initial dc planning assessment. CM educated Samara on the CM role and verbal consent given by patient to complete assessment. Patient lives at home with her where she needs help all the time. CM discussed availability of home health, rehab services, and medical equipment. The patient is current with [facility] who comes 7 days a week from 8-4 each day. She has a very good support system at home. There is always someone with her at all times. She has a walker, chair lift recliner, shower chair, home o2 that she wears 2-3L @ all times with portability and a nebulizer machine from [facility]. Dr Monet is her PCP and she uses [facility]. We spoke about the different levels of rehab and Samara said that they would prefer that she goes to [facility], they have been there before and were very satisfied with their care. They would like a family member to stay with their mom at all times wherever she goes. RONAL obtained and also an IMM signed by aSmara. I will send the referral to [facility] and let Carol know about the referral. CM will continue to follow and will assist as needed with dc plans/needs. DCP REVIEW SUMMARY ANTICIPATED D/C DATE: EXPECTED LOS : CASE STATUS: DCP Initiated INITIAL REVIEW: 01/26/2021 INITIAL REVIEWER: Astrid Soto FINAL DISCHARGE DISPOSITION: : FINAL REVIEWER: FINAL REVIEW DATE: DCP Focus Questions & Answers QUESTION: ANSWER : PATIENT: YANET MALIK ENCOUNTER: [id number] MEDICAL RECORD#: [id number] ADMISSION DATE: 01/27/2021 DISCHARGE DATE: ATTENDING MD: MAYE: AGE: 80 MARITAL STATUS: M DC PLAN ID: [id number] FACILITY: [facility] PRINTED ON: 02/01/21 12:46 CT All edits/amendments must be made on the electronic document DICTATION DATE: 02/01/21 124 [employer] LANGUAGE TEACHER: BLESSING 02/01/21 1245 RPT#: [id number] DC DATE: STATUS: ADM IN [facility] [address] [place] [address] END OF REPORT
[2021-02-01 13:19] VITALS: BP 121/56
--- NOTE | 2021-02-01 15:24 | NUR ---
IV SALINE LOCKED TTO LEFT FOREARM. DISCHARGE INSTRUCTIONS GIVEN TO [facility] AND AMBULANCE SERVICE WITH FAMILY VERBALIZEING UNDERSTANDING. MORPHINE 2MG GIVEN PRIOR TO DISCHARGE TO [facility]. O2 10L HIGH FLOW. STABLE AT TIME OF DISCHARGE.
--- NOTE | 2021-02-01 15:39 | MORECARE ---
CASE MANAGEMENT DISCHARGE SUMMARY PATIENT: YANET MALIK UNIT: [id number] ADM DATE: 01/27/21 AGE: 80 : 41 SEX: F ROOM/BED: D.[facility]3 AUTHOR: LEONARD,DOC PHYSICIAN: REFERRING PHYSICIAN: DONTA COLMENARES MD DATE OF SERVICE: 02/01/21 Case Management Discharge Planning Summary COMMENTS ENTERED DATE: 02/01/21 12:40 CT COMMENT TYPE: Discharge Planning REVIEWER: Astrid Charles Patient will be discharging to [facility] on comfort care. I will send clinicals to [place] and they can assess her there for hospice. She will be traveling via EMS. to assist as needed ENTERED DATE: 02/01/21 10:40 CT COMMENT TYPE: Discharge Planning REVIEWER: Astrid Soto Patient's family would like to go to [place] to comfort/hospice care. I have called and spoke with Adelfo at [facility] and sent the referral out there. I will wait to hear back from [facility]. They would like to use [facility] at [place] if possible I will send the referral to [place] also ENTERED DATE: 01/31/21 7:48 CT COMMENT TYPE: Discharge Planning REVIEWER: Astrid Charles late entry 01/30/21 @ 1910 Samara Hinds ( daughter) [phone] Also discussed that her mom should be a DNR I verified that her mothers chart noted that. ENTERED DATE: 01/31/21 7:40 CT COMMENT TYPE: Discharge Planning REVIEWER: Astrid Soto LATE ENTRY 01/30/21 @ 1910 CM met with patient's daughter Samara Hinds to complete initial dc planning assessment. CM educated Samara on the CM role and verbal consent given by patient to complete assessment. Patient lives at home with her where she needs help all the time. CM discussed availability of home health, rehab services, and medical equipment. The patient is current with [facility] who comes 7 days a week from 8-4 each day. She has a very good support system at home. There is always someone with her at all times. She has a walker, chair lift recliner, shower chair, home o2 that she wears 2-3L @ all times with portability and a nebulizer machine from [facility]. Dr Monet is her PCP and she uses [facility]. We spoke about the different levels of rehab and Samara said that they would prefer that she goes to [facility], they have been there before and were very satisfied with their care. They would like a family member to stay with their mom at all times wherever she goes. RONAL obtained and also an IMM signed by Samara. I will send the referral to [facility] and let Carol know about the referral. CM will continue to follow and will assist as needed with dc plans/needs. DCP REVIEW SUMMARY ANTICIPATED D/C DATE: EXPECTED LOS : CASE STATUS: DCP Initiated INITIAL REVIEW: 01/26/2021 INITIAL REVIEWER: Astrid Soto FINAL DISCHARGE DISPOSITION: : FINAL REVIEWER: FINAL REVIEW DATE: DCP Focus Questions & Answers QUESTION: ANSWER : PATIENT: YANET MALIK ENCOUNTER: [id number] MEDICAL RECORD#: [id number] ADMISSION DATE: 01/27/2021 DISCHARGE DATE: 02/01/2021 ATTENDING MD: MAYE: AGE: 80 MARITAL STATUS: M DC PLAN ID: [id number] FACILITY: [facility] PRINTED ON: 02/01/21 15:39 CT All edits/amendments must be made on the electronic document DICTATION DATE: 02/01/211538 HEALTHCARE RISK CONTROL CONSULTANT: BLESSING 02/01/211538 RPT#: [id number] DC DATE:02/01/21 STATUS: DIS IN [facility] [address] [place] [place] [address] END OF REPORT
--- NOTE | 2021-02-04 14:53 | MORECARE ---
CASE MANAGEMENT DISCHARGE SUMMARY PATIENT: YANET MALIK UNIT: [id number] ADM DATE: 01/27/21 AGE: 80 : 41 SEX: F ROOM/BED: D.[facility]3 AUTHOR: LEONARD,DOC PHYSICIAN: REFERRING PHYSICIAN: DONTA COLMENARES MD DATE OF SERVICE: 02/04/21 Case Management Discharge Planning Summary COMMENTS ENTERED DATE: 02/01/21 12:40 CT COMMENT TYPE: Discharge Planning REVIEWER: Astrid Charles Patient will be discharging to [facility] on comfort care. I will send clinicals to [facility] and they can assess her there for hospice. She will be traveling via EMS. to assist as needed ENTERED DATE: 02/01/21 10:40 CT COMMENT TYPE: Discharge Planning REVIEWER: Astrid Soto Patient's family would like to go to [place] to comfort/hospice care. I have called and spoke with Adelfo at [place] and sent the referral out there. I will wait to hear back from [place]. They would like to use [facility] at [place] if possible I will send the referral to [facility] also ENTERED DATE: 01/31/21 7:48 CT COMMENT TYPE: Discharge Planning REVIEWER: Astrid Charles late entry 01/30/21 @ 1910 Samara Hinds ( daughter) [phone] Also discussed that her mom should be a DNR I verified that her mothers chart noted that. ENTERED DATE: 01/31/21 7:40 CT COMMENT TYPE: Discharge Planning REVIEWER: Astrid Soto LATE ENTRY 01/30/21 @ 1910 CM met with patient's daughter Samara Hinds to complete initial dc planning assessment. CM educated Samara on the CM role and verbal consent given by patient to complete assessment. Patient lives at home with her where she needs help all the time. CM discussed availability of home health, rehab services, and medical equipment. The patient is current with [facility] who comes 7 days a week from 8-4 each day. She has a very good support system at home. There is always someone with her at all times. She has a walker, chair lift recliner, shower chair, home o2 that she wears 2-3L @ all times with portability and a nebulizer machine from [facility]. Dr Monet is her PCP and she uses [facility]. We spoke about the different levels of rehab and Samara said that they would prefer that she goes to [facility], they have been there before and were very satisfied with their care. They would like a family member to stay with their mom at all times wherever she goes. RONAL obtained and also an IMM signed by Samara. I will send the referral to [facility] and let Carol know about the referral. CM will continue to follow and will assist as needed with dc plans/needs. DCP REVIEW SUMMARY ANTICIPATED D/C DATE: EXPECTED LOS : CASE STATUS: DCP Initiated INITIAL REVIEW: 01/26/2021 INITIAL REVIEWER: Astrid Soto FINAL DISCHARGE DISPOSITION: : FINAL REVIEWER: FINAL REVIEW DATE: DCP Focus Questions & Answers QUESTION: ANSWER : PATIENT: AYNET MALIK ENCOUNTER: [id number] MEDICAL RECORD#: [id number] ADMISSION DATE: 01/27/2021 DISCHARGE DATE: 02/01/2021 ATTENDING MD: MAYE: AGE: 80 MARITAL STATUS: M DC PLAN ID: [id number] FACILITY: [facility] PRINTED ON: 02/04/21 14:52 CT All edits/amendments must be made on the electronic document DICTATION DATE: 02/04/211451 GRADE TEACHER: BLESSING 02/04/211451 RPT#: [id number] DC DATE:02/01/21 STATUS: DIS IN [facility] [address] [place] [address] END OF REPORT
== END 2021-02-01 15:26 | disposition home health service (06) | DRG 91 ==
LOC: D.ER 14:14 → OBSVTIME 15:49 → D.MS 15:49
PROVIDERS: Family Medicine; ADMIT Family Medicine; ATTEND Family Medicine
PROC: 5A09457 Assistance with Respiratory Ventilation, 24-96 Consecutive Hours, Continuous Positive Airway Pressure (ICD-10-PCS; principal; 2021-01-28)
DX: G92 Toxic encephalopathy (principal); J96.22 Acute and chronic respiratory failure with hypercapnia; J96.21 Acute and chronic respiratory failure with hypoxia; J69.0 Pneumonitis due to inhalation of food and vomit; Z68.41 Body mass index [BMI] 40.0-44.9, adult; I24.8 Other forms of acute ischemic heart disease; I10 Essential (primary) hypertension; Z66 Do not resuscitate; I25.10 Atherosclerotic heart disease of native coronary artery without angina pectoris; E78.5 Hyperlipidemia, unspecified; J44.9 Chronic obstructive pulmonary disease, unspecified; J45.909 Unspecified asthma, uncomplicated; Z99.81 Dependence on supplemental oxygen; F41.8 Other specified anxiety disorders; M19.90 Unspecified osteoarthritis, unspecified site; T42.4X5A Adverse effect of benzodiazepines, initial encounter; G31.83 Neurocognitive disorder with Lewy bodies; F02.80 Dementia in other diseases classified elsewhere, unspecified severity, without behavioral disturbance, psychotic disturbance, mood disturbance, and anxiety; E66.01 Morbid (severe) obesity due to excess calories